=== PATIENT | female | born 1980 | race Caucasian/White ===

== ENCOUNTER 2019-05-17 08:02 | Outpatient (CLI) | payer MEDICARE, MEDICAID, SELFPAY ==
--- NOTE | 2019-05-17 08:17 | MM_ITS ---
WS: [id number] DIAGNOSTIC BILATERAL DIGITAL MAMMOGRAM WITH CAD RIGHT breast ultrasound, limited HISTORY: N63.0 UNSPEC LUMP RT BREAST COMPARISON: 11/10/2015 TECHNIQUE: Bilateral craniocaudad, mediolateral oblique, and mediolateral views are submitted. Spot c ompression RIGHT CC. Computer aided detection utilized. Breast composition: The breasts are extremely dense, which lowers the sensitivity of mammography. Tri angular marker is placed lateral to the RIGHT nipple and just above the nipple in the area of the pal pable abnormality. Mammographically no abnormality is identified. No skin thickening or distortion. N o calcifications. RIGHT breast ultrasound, limited. Ultrasound directed to the palpable abnormality in the retroareolar region. There is no underlying ab normality identified. Normal soft tissue. MM/[place] [id number] IMPRESSION: BI-RADS: 2-Benign FOLLOW UP: 1 Year Follow-up
--- NOTE | 2019-05-17 09:00 | US_ITS ---
WS: [id number] DIAGNOSTIC BILATERAL DIGITAL MAMMOGRAM WITH CAD RIGHT breast ultrasound, limited HISTORY: N63.0 UNSPEC LUMP RT BREAST COMPARISON: 11/10/2015 TECHNIQUE: Bilateral craniocaudad, mediolateral oblique, and mediolateral views are submitted. Spot c ompression RIGHT CC. Computer aided detection utilized. Breast composition: The breasts are extremely dense, which lowers the sensitivity of mammography. Tri angular marker is placed lateral to the RIGHT nipple and just above the nipple in the area of the pal pable abnormality. Mammographically no abnormality is identified. No skin thickening or distortion. N o calcifications. RIGHT breast ultrasound, limited. Ultrasound directed to the palpable abnormality in the retroareolar region. There is no underlying ab normality identified. Normal soft tissue. US/US breast RT limited* [id number] IMPRESSION: BI-RADS: 2-Benign FOLLOW UP: 1 Year Follow-up
== END 2019-05-17 08:03 | disposition home or self-care (01) ==
LOC: RADSHAW 08:07
PROVIDERS: Family Provider Nurse Practitioner Family; PCP Nurse Practitioner Family; Visit Provider Nurse Practitioner Family
DX: N63.10 Unspecified lump in the right breast, unspecified quadrant (principal)
CPT/HCPCS: 76642; 77066

== ENCOUNTER → 2019-06-08 09:17 | Outpatient (BNVA) | payer MEDICARE, MEDICAID, SELFPAY | PROVIDERS: Family Provider Nurse Practitioner Family; PCP Nurse Practitioner Family; Visit Provider Nurse Practitioner | DX: F43.12 Post-traumatic stress disorder, chronic (principal); F43.20 Adjustment disorder, unspecified | CPT/HCPCS: 99213 ==

== ENCOUNTER 2019-08-14 15:52 | Emergency (ER) | payer MEDICARE, MEDICAID, SELFPAY ==
--- NOTE | 2019-08-14 15:55 | XR_ITS ---
WS: [id number] PORTABLE CHEST HISTORY: sob COMPARISON: 03/09/2019 Cardiac loop recorder projects over the mid LEFT lung. Otherwise lungs are clear. Lungs are clear and well expanded. No pleural effusion or pneumothorax. Cardiac size: Normal. Mediastinum/Aorta: Normal mediastinum. No osseous abnormality seen. XR/XR chest 1V portable [id number] IMPRESSION: Unremarkable portable chest.
--- NOTE | 2019-08-14 15:55 | ECG_ITS ---
Measurements Intervals [place] Rate: 63 P: 41 CO: 196 QRS: 32 QRSD: 94 T: 37 QT: 423 QTc: 436 SINUS RHYTHM Compared to ECG 03/09/2019 16:26:13 Sinus bradycardia no longer present Electronically Signed On 08-14-2019 18:10:29 CDT by Katalina Montero M.D. [id number]
[2019-08-14 15:59] VITALS: BP 123/84; PULSE 81; RESP 20; TEMP 37.1; O2SAT 98; BMI 25.7
--- NOTE | 2019-08-14 16:01 | ED_ITS ---
HPI - SOB/Dyspnea General: Chief Complaint: Shortness of Breath/Dyspnea Stated Complaint: sob/sent by doctor Time Seen by Provider: 08/14/19 15:55 Source: patient Mode of arrival: ambulatory Limitations: no limitations History of Present Illness: HPI Narrative: 39-year-old female with a history of bradycardia tachyarrhythmias. Patient follows with Dr. Angel and has had issues with syncope and palpitations and dyspnea for over a year. Patient has had increasing shortness of breath over the last week and Dr. Hannon appear to rule out any pulmonary cause. She has been admitted before had no signs of any coronary artery disease. Denies any fevers. MD elicited complaint: shortness of breath Severity: mild Exacerbating factors: exertion Relieving factors: rest Associated symptoms: Deny abdominal pain, chest pain, fever(s), nausea or vomiting Review of Systems Const: Denies: fever, chills, body aches or change in appetite Eyes: Denies: blurry vision or eye discomfort ENMT: Denies: throat pain or dental pain Card: Denies: chest pain Resp: Reports: shortness of breath GI: Denies: abdominal pain, nausea, vomiting or diarrhea : Denies: painful urination Musc: Denies: neck pain or back pain Skin/Breast: Denies: rash Neuro: Denies: headache Psych: Denies: depression Maxx/Lymph: Denies: easy bruising All/Imm: Denies: hives PFSH ED PFSH: Medical History Adjustment disorder, unspecified Dyslipidemia Major depressive disorder, recurrent severe without psychotic features Old cerebrovascular accident (CVA) without late effect Post-traumatic stress disorder, chronic Post-traumatic stress disorder, chronic SOB (shortness of breath) Tachycardia Family History Other Diabetes Stroke Social History Smoking and tobacco status: current some day smoker e-cigarettes E-Cigarette Details: with nicotine Smoking risk assessment/counseling performed?: Yes Tobacco counseling given: counseling >3 minutes Physical Exam Const: COMMON NORMALS: no apparent distress, oriented x3 and healthy appearing HENMT: COMMON NORMALS: normocephalic and head/scalp atraumatic HEAD & SCALP: normocephalic and atraumatic Eye: COMMON NORMALS: PERRL and EOMs intact bilaterally PUPIL: Yes PERRL Neck/C-Spine: COMMON NORMALS: full ROM and supple Chest: COMMONS NORMALS: inspection of chest normal and palpation of chest normal Resp: COMMON NORMALS: normal respiratory effort, no retractions, no use of accessory muscles and clear to auscultation bilaterally AUSCULTATION: clear to auscultation bilaterally Cardio: COMMON NORMALS: regular rate, regular rhythm and no murmurs RATE: regular rate RHYTHM: regular rhythm GI: COMMON NORMALS: normal to inspection, nondistended, normoactive bowel sounds, soft to palpation, non-tender and no masses PALPATION: Yes soft Extremity: COMMON NORMALS: normal to inspection and full ROM Neuro: COMMON NORMALS: oriented x3, moves all extremities and no focal motor deficits Psych: COMMON NORMALS: mental status grossly normal, thought process normal and cooperative THOUGHT PROCESS: normal thought process Skin: COMMON NORMALS: no rashes or lesions noted and no wounds GENERAL SKIN EXAM: no rashes or lesions noted Course Vital Signs: Vital signs: Vital Signs Temperature 98.7 F 08/14/19 15:59 Pulse Rate 81 08/14/19 15:59 Respiratory Rate 20 H 08/14/19 15:59 Blood Pressure 123/84 08/14/19 15:59 Pulse Oximetry 98 08/14/19 15:59 MDM - SOB/Dyspnea MDM Narrative: Medical decision making narrative: Patient presents with dyspnea. Patient's pulse ox here is been normal lab work including d-dimer normal. She has no signs of pneumonia on x-ray. No signs of pulmonary bruising. She sees pulmonogiss tomorrow and is stable for discharge and is to follow-up then. Lab Data: Labs: Lab Results 08/14/19 08/14/19 08/14/19 Range/Units 16:20 16:20 16:20 WBC 7.3 (4.0-10.0) 10^3/ uL RBC 4.05 L (4.1-5.3) 10^6/u L Hgb 12.8 (11.5-15.3) g/dL Hct 37.8 (37.0-47.0) % MCV 93.3 (81-99) fL MCH 31.6 (28.0-34.0) pg MCHC 33.9 (30.0-36.0) g/dL RDW 11.8 L (12.1-15.1) % Plt Count 242 (130-400) 10^3/c mm MPV 10.0 (7.4-10.4) fL Neut % (Auto) 65.1 % Lymph % (Auto) 25.2 % [place] % (Auto) 6.1 % Eos % (Auto) 2.3 % Baso % (Auto) 1.0 % Neut # (Auto) 4.8 (1.8-7.7) 10^3/u L Lymph # (Auto) 1.9 (0.8-4.8) 10^3/u L [place] # (Auto) 0.5 (0.2-0.9) 10^3/u L Eos # (Auto) 0.2 (0.0-0.8) 10^3/u L Baso # (Auto) 0.1 (0.0-0.1) 10^3/u L Nucleated RBC % (a uto) 0 % Nucleated RBCs # 0.0 /100WBC D-Dimer (0-0.59) ug/mIFE U Sodium 140 (136-145) mmol/L Potassium 3.7 (3.5-5.1) mmol/L Chloride 104 (98-107) mmol/L Carbon Dioxide 27 (22-29) mmol/L Anion Gap 12.7 (5-19) BUN 9 (6-20) mg/dL Creatinine 0.6 (0.5-0.9) mg/dL GFR Calculation 110.2 (90-130) mL/min Glucose 97 (65-115) mg/dL Calculated Osmolal ity 286 (285-295) mOsm/k g Calcium 9.1 (8.5-10.5) mg/dL Total Bilirubin 0.3 (0.15-1.2) mg/dL AST 28 (0-32) U/L ALT 31 (0-33) U/L Alkaline Phosphata se 75 (35-105) IU/L Troponin T Baselin e 6 (0-10) ng/mL Troponin T 120 Min alfonso (0-10) ng/mL Delta Troponin T (0-10) ABS# NT-Pro-B Natriuret Pep 23 (0-125) pg/mL Total Protein 6.2 L (6.6-8.7) g/dL Albumin 4.0 (3.5-5.2) g/dL Globulin 2.2 (1.3-4.6) g/dL 08/14/19 08/14/19 Range/Units 16:20 18:35 WBC (4.0-10.0) 10^3/ uL RBC (4.1-5.3) 10^6/u L Hgb (11.5-15.3) g/dL Hct (37.0-47.0) % MCV (81-99) fL MCH (28.0-34.0) pg MCHC (30.0-36.0) g/dL RDW (12.1-15.1) % Plt Count (130-400) 10^3/c mm MPV (7.4-10.4) fL Neut % (Auto) % Lymph % (Auto) % [place] % (Auto) % Eos % (Auto) % Baso % (Auto) % Neut # (Auto) (1.8-7.7) 10^3/u L Lymph # (Auto) (0.8-4.8) 10^3/u L [place] # (Auto) (0.2-0.9) 10^3/u L Eos # (Auto) (0.0-0.8) 10^3/u L Baso # (Auto) (0.0-0.1) 10^3/u L Nucleated RBC % (a uto) % Nucleated RBCs # /100WBC D-Dimer <= 0.27 (0-0.59) ug/mIFE U Sodium (136-145) mmol/L Potassium (3.5-5.1) mmol/L Chloride (98-107) mmol/L Carbon Dioxide (22-29) mmol/L Anion Gap (5-19) BUN (6-20) mg/dL Creatinine (0.5-0.9) mg/dL GFR Calculation (90-130) mL/min Glucose (65-115) mg/dL Calculated Osmolal ity (285-295) mOsm/k g Calcium (8.5-10.5) mg/dL Total Bilirubin (0.15-1.2) mg/dL AST (0-32) U/L ALT (0-33) U/L Alkaline Phosphata se (35-105) IU/L Troponin T Baselin e (0-10) ng/mL Troponin T 120 Min alfonso 6.00 (0-10) ng/mL Delta Troponin T 0 (0-10) ABS# NT-Pro-B Natriuret Pep (0-125) pg/mL Total Protein (6.6-8.7) g/dL Albumin (3.5-5.2) g/dL Globulin (1.3-4.6) g/dL Imaging Data^: CXR: Radiologist's impression: [place] [address] XRay Report Signed Patient: Zoe Parham Unit #: [id number] : 1980 Age/Sex: 39 / F ADM Date: 08/14/19 Loc: ER Room/Bed: Attending Dr: Ordering Provider/Ordering MD: Edilma Jackson MD Date of Service: 08/14/19 Procedure(s): XR chest 1V portable [id number] Accession Number(s): [id number] Report Number: [id number] WS: [id number] PORTABLE CHEST HISTORY: sob COMPARISON: 03/09/2019 Cardiac loop recorder projects over the mid LEFT lung. Otherwise lungs are clear. Lungs are clear and well expanded. No pleural effusion or pneumothorax. Cardiac size: Normal. Mediastinum/Aorta: Normal mediastinum. No osseous abnormality seen. XR/XR chest 1V portable [id number] IMPRESSION: Unremarkable portable chest. EKG Data^: EKG 1: Attestation: I personally reviewed and interpreted this EKG as follows: EKG Interpretation Date: 08/14/19 EKG interpretation time: 16:08 Interpretation: nsr hr [address] or t wave abnormalities qrs 94 qtc 431 EKG 2: Attestation: I personally reviewed and interpreted this EKG as follows: EKG Interpretation Date: 08/14/19 EKG interpretation time: 17:53 Interpretation: nsr hr [address] elevation qrs 94 qtc 456 Discharge Plan Discharge Patient Disposition: Home, Self-Care Clinical Impression: SOB (shortness of breath) Condition: Stable Prescriptions: No Action levothyroxine 25 mcg tablet 25 mcg PO DAILY RF: 0 omeprazole 40 mg capsule,delayed release(DR/EC) 40 mg PO DAILY RF: 0 mecobalamin (vitamin B12) 5,000 mcg tablet,disintegrating 5,000 mcg PO DAILY RF: 0 All Day Allergy (cetirizine) 10 mg capsule 10 mg PO DAILY RF: 0 atorvastatin [Lipitor] 80 mg tablet 80 mg PO DAILY RF: 0 aspirin 325 mg tablet 325 mg PO DAILY RF: 0 biotin 1,000 mcg tablet,chewable 1,000 mcg PO DAILY RF: 0 ferrous sulfate 325 mg (65 mg iron) tablet 325 mg PO DAILY RF: 0 lysine [L-Lysine] 500 mg tablet 500 mg PO DAILY RF: 0 multivitamin Tablet 1 tab PO DAILY RF: 0 cholecalciferol (vitamin D3) 5,000 unit tablet,disintegrating 5,000 unit PO DAILY RF: 0 sertraline [Zoloft] 50 mg tablet 50 mg PO DAILY Qty: 30 RF: 2 Tylenol 325 mg Tablet 325 mg PO QID PRN (Reason: Pain) RF: 0 ProAir HFA 90 mcg/actuation HFA aerosol inhaler 1 - 2 puff INHALATION Q4H PRN (Reason: Shortness Of Breath) RF: 0 Discharge Orders: Discharge Order (Routine); Ordered 08/14/19 Ordered By: Edilma Jackson Referrals: Elda Conner NP [Primary Care Provider] - Discharge Diet: Advance as tolerated Discharge Activity: Resume usual activity Patient Instructions: Dyspnea (ED) Coding Level of Care Code ED [employer] Worker for Fede Fwd Exam Comprehensive
[2019-08-14 16:37] LABS: Basophils # 0.1 10^3/uL (0.0-0.1); Eosinophils # 0.2 10^3/uL (0.0-0.8); Eosinophils % 2.3 %; Hematocrit 37.8 % (37.0-47.0); Hemoglobin 12.8 g/dL (11.5-15.3); Lymphocytes # 1.9 10^3/uL (0.8-4.8); Lymphocytes % 25.2 %; Mean Corpuscular HGB Conc 33.9 g/dL (30.0-36.0); Mean Corpuscular Hemoglobin 31.6 pg (28.0-34.0); Mean Corpuscular Volume 93.3 fL (81-99); Monocytes # 0.5 10^3/uL (0.2-0.9); Monocytes % 6.1 %; Neutrophils # 4.8 10^3/uL (1.8-7.7); Neutrophils % 65.1 %; Nucleated Red Blood Cells % 0 %; Platelet Count 242 10^3/cmm (130-400); Red Blood Count 4.05 10^6/uL (4.1-5.3); Red Cell Distribution Width 11.8 % (12.1-15.1); White Blood Count 7.3 10^3/uL (4.0-10.0)
[2019-08-14 16:54] LABS: Troponin(5th) Baseline 6 ng/mL (0-10)
[2019-08-14 17:02] LABS: Alanine Aminotransferase 31 U/L (0-33); Alkaline Phosphatase 75 IU/L (35-105); Anion Gap 12.7 (5-19); Aspartate Amino Transferase 28 U/L (0-32); Blood Urea Nitrogen 9 mg/dL (6-20); Calcium 9.1 mg/dL (8.5-10.5); Carbon Dioxide 27 mmol/L (22-29); Chloride 104 mmol/L (98-107); Globulin 2.2 g/dL (1.3-4.6); Glomerular Filtration Rate 110.2 mL/min (90-130); Glucose 97 mg/dL (65-115); NT Pro B Type Natriuretic Pept 23 pg/mL (0-125); Osmolality Calculated 286 mOsm/kg (285-295); Potassium 3.7 mmol/L (3.5-5.1); Sodium 140 mmol/L (136-145); Total Bilirubin 0.3 mg/dL (0.15-1.2); Total Protein 6.2 g/dL (6.6-8.7)
[2019-08-14 19:00] LABS: Troponin 5 2HR Delta 0 ABS# (0-10)
[2019-08-14 20:23] LABS: D Dimer <= 0.27 ug/mIFEU (0-0.59)
[2019-08-14 21:13] VITALS: BP 149/65; PULSE 78; RESP 16; O2SAT 98
--- NOTE | 2019-08-14 21:55 | ECG_ITS ---
Measurements Intervals [place] Rate: 72 P: 47 AK: 194 QRS: 57 QRSD: 94 T: 37 QT: 431 QTc: 475 SINUS RHYTHM Compared to ECG 03/09/2019 16:26:13 Sinus bradycardia no longer present Electronically Signed On 08-14-2019 18:14:26 CDT by Katalina Montero M.D. [email or web address]
== END 2019-08-14 21:14 | disposition home or self-care (01) ==
PROVIDERS: Emergency Provider Emergency Medicine; Family Provider Nurse Practitioner Family; PCP Nurse Practitioner Family
DX: R06.02 Shortness of breath (principal); Z79.82 Long term (current) use of aspirin; E78.5 Hyperlipidemia, unspecified; Z86.73 Personal history of transient ischemic attack (TIA), and cerebral infarction without residual deficits; F17.290 Nicotine dependence, other tobacco product, uncomplicated
CPT/HCPCS: 12345; 36415; 71045; 80053; 83880; 84484; 85025; 85378; 93005; 99281; 99283

== ENCOUNTER 2019-08-24 09:27 | Outpatient (CLI) | payer MEDICARE, MEDICAID, SELFPAY ==
--- NOTE | 2019-08-24 09:45 | CT_ITS ---
WS: [id number] CT CHEST TECHNIQUE: Noncontrast CT of the chest with coronal and sagittal reformatted images. CLINICAL INFORMATION: Shortness of breath COMPARISON: CT chest August 03, 2018 DLP: 765.[address] scans at [facility] use at least one of these dose optimization techniques: automat ed exposure control; mA and/or kV adjustment per patient size (includes targeted exams where dose is matched to clinical indication); or iterative reconstruction. FINDINGS: No acute pulmonary infiltrates.Lungs are well aerated. No consolidation or pleural fluid. No focal pn eumonia. No suspicious pulmonary parenchymal opacities. Thyroid gland is normal. No mediastinal or hilar lymphadenopathy. No axillary lymphadenopathy. Adrena l glands are normal. Cholecystectomy clips. Postoperative changes with surgical clips at the GE junct ion. Small esophageal hiatal hernia. Mild thoracic kyphosis. Mild thoracic curve. No acute appearing compression fractures. CT/CT chest wo con [id number] IMPRESSION: 1. No acute pulmonary infiltrates. No focal pneumonia. No pleural fluid. 2. No suspicious pulmonary parenchymal opacities. 3. No mediastinal or hilar lymphadenopathy. 4. Prior postoperative changes GE junction with surgical clips and small esoph ageal hiatal hernia. 5. Cholecystectomy clips.
== END 2019-08-24 09:28 | disposition home or self-care (01) ==
LOC: RADWPI 09:30
PROVIDERS: Family Provider Nurse Practitioner Family; PCP Nurse Practitioner Family; Visit Provider Internal Medicine Critical Care Medicine
DX: R06.02 Shortness of breath (principal); K44.9 Diaphragmatic hernia without obstruction or gangrene
CPT/HCPCS: 71250

== ENCOUNTER → 2019-08-28 08:35 | Outpatient (BNVA) | payer MEDICARE, MEDICAID, SELFPAY | PROVIDERS: Family Provider Nurse Practitioner Family; PCP Nurse Practitioner Family; Visit Provider Nurse Practitioner | DX: F43.20 Adjustment disorder, unspecified (principal); F43.12 Post-traumatic stress disorder, chronic | CPT/HCPCS: 99213 ==

== ENCOUNTER 2019-10-02 10:19 | Outpatient (CLI) | payer MEDICARE, MEDICAID, SELFPAY ==
[2019-10-02 12:47] VITALS: O2SAT 95; O2SAT 99
--- NOTE | 2019-10-02 12:55 | PFTS_ITS ---
Date of Study:10/02/19 Date of Dictation: MECHANICS: Forced vital capacity (FVC) is normal. Forced expiratory volume in one second (FEV1) is normal. FEV1/FVC is normal. FLOW VOLUME LOOP: There is no peak expiratory flow on the flow volume loop. LUNG VOLUMES: Total lung capacity (TLC) is normal. Residual volume (RV) is normal. DIFFUSING CAPACITY FOR CARBON MONOXIDE: Normal. INTERPRETATION: The pulmonary function tests are normal. Lung volumes are normal. Gas exchange (DLCO) is normal. MTDD
== END 2019-10-02 10:20 | disposition home or self-care (01) ==
LOC: RT 10:24
PROVIDERS: Family Provider Nurse Practitioner Family; PCP Nurse Practitioner Family; Visit Provider Internal Medicine Critical Care Medicine
DX: R06.02 Shortness of breath (principal)
CPT/HCPCS: 94010; 94726; 94729; 94762

== ENCOUNTER 2019-10-02 11:00 | Outpatient (CLI) | payer MEDICARE, MEDICAID, SELFPAY | END 2019-10-02 11:01 | disposition home or self-care (01) | LOC: SLEEP 10-04 09:26 | PROVIDERS: Family Provider Nurse Practitioner Family; PCP Nurse Practitioner Family; Visit Provider Internal Medicine Critical Care Medicine | DX: R06.02 Shortness of breath (principal) | CPT/HCPCS: 94762 ==

== ENCOUNTER → 2020-02-28 15:10 | Outpatient (BNVA) | payer MEDICARE, MEDICAID, SELFPAY | PROVIDERS: Family Provider Nurse Practitioner Family; PCP Nurse Practitioner Family; Visit Provider Nurse Practitioner Family | DX: Z20.828 Contact with and (suspected) exposure to other viral communicable diseases (principal); J06.9 Acute upper respiratory infection, unspecified | CPT/HCPCS: 87635 ==

== ENCOUNTER 2020-03-12 11:39 | Emergency (ER) | payer MEDICARE, MEDICAID, SELFPAY ==
[2020-03-12 12:03] VITALS: BP 113/77; PULSE 73; RESP 18; TEMP 36.9; O2SAT 97; BMI 28.3
--- NOTE | 2020-03-12 13:41 | XR_ITS ---
WS: [id number] XR KUB [id number] REASON FOR EXAM: stomach pain FINDINGS: Multiple surgical clips and mickey in the epigastric and gastroesophageal region. Previous cholecyst ectomy. Bowel gas pattern is unremarkable. No free air or retroperitoneal air. No urinary tract calculi are identified. No mass is recognized. XR/XR KUB [id number] IMPRESSION: No acute abnormality identified.
--- NOTE | 2020-03-12 14:06 | PC.NURSE ---
Pt in WR with family at side. No needs
--- NOTE | 2020-03-12 14:21 | PC.NURSE ---
Blood drawn, labeled and sent to lab. Pt given urine cup for UA.
[2020-03-12 14:32] LABS: Basophils # 0.1 10^3/uL (0.0-0.1); Basophils % 0.9 %; Eosinophils # 0.1 10^3/uL (0.0-0.8); Eosinophils % 0.9 %; Hematocrit 41.3 % (37.0-47.0); Hemoglobin 13.9 g/dL (11.5-15.3); Lymphocytes # 1.6 10^3/uL (0.8-4.8); Lymphocytes % 18.4 %; Mean Corpuscular HGB Conc 33.7 g/dL (30.0-36.0); Mean Corpuscular Hemoglobin 31.4 pg (28.0-34.0); Mean Corpuscular Volume 93.4 fL (81-99); Mean Platelet Volume 9.6 fL (7.4-10.4); Monocytes # 0.5 10^3/uL (0.2-0.9); Monocytes % 5.5 %; Neutrophils # 6.61 10^3/uL (1.8-7.7); Neutrophils % 74.1 %; Nucleated Red Blood Cells % 0 %; Platelet Count 286 10^3/cmm (130-400); Red Blood Count 4.42 10^6/uL (4.1-5.3); Red Cell Distribution Width 12.6 % (12.1-15.1); White Blood Count 8.9 10^3/uL (4.0-10.0)
[2020-03-12 14:52] LABS: Alanine Aminotransferase 47 U/L (0-33); Albumin Level 3.9 g/dL (3.5-5.2); Alkaline Phosphatase 81 IU/L (35-105); Aspartate Amino Transferase 38 U/L (0-32); Blood Urea Nitrogen 7 mg/dL (6-20); Calcium 8.8 mg/dL (8.5-10.5); Carbon Dioxide 27 mmol/L (22-29); Chloride 107 mmol/L (98-107); Glucose 100 mg/dL (65-115); Lipase 48 U/L (13-60); Osmolality Calculated 290 mOsm/kg (285-295); Sodium 141 mmol/L (136-145); Total Bilirubin 0.4 mg/dL (0.15-1.2); Total Protein 5.9 g/dL (6.6-8.7)
[2020-03-12 15:02] LABS: Add Urine Microscopic? NO
[2020-03-12 15:11] LABS: Bilirubin Urine Neg (Negative); Blood Urine Neg (Negative); Glucose Urine UA Norm (Normal); Ketones Urine Negative (Negative); Leukocyte Esterase Urine Negative (Negative); Nitrate Urine Negative (Negative); Protein Urine Neg (Negative); Urine Appearance Cloudy (CLEAR); Urine Color Yellow (Yellow); Urobilinogen Urine Norm (Negative); pH Urine 5 (5-7)
--- NOTE | 2020-03-12 15:17 | ED_ITS ---
HPI - Abdominal Pain General: Chief Complaint: Abdominal Pain Stated Complaint: PHY REF/POSS GI BLOCKAGE Time Seen by Provider: 03/12/20 13:48 Source: patient Mode of arrival: ambulatory Limitations: no limitations History of Present Illness: HPI narrative: 39-year-old female patient presents to the emergency department with complaints of stomach pain. She reports 3- weeks ago, history of stomach flu symptoms. She reports lasted 4 to 5 days. Tested negative for Covid. She reports onset of pain with eating, left upper abdomen, she reports history of gastric bypass in [place] years ago with telescoping of her colon. She reports telescoping fixed itself and has not experienced further symptoms. She reports past several day history of nausea with eating, dull ache on an empty stomach. She reports pain is in the left upper abdomen. She states is experienced loose bowel movements, smaller than normal. She denies vomiting. She denies fever chills. States able to tolerate p.o. fluids without difficulty. She reports pain occurs only with eating. MD elicited complaint: abdominal pain Pertinent past history: gastritis and other (Gastric bypass and telescoping of the colon) Onset (ago): day(s) (4-5) Pain Consistency: intermittent Location: LUQ Severity: moderate Quality: cramping, aching and dull Migration to: no migration Exacerbating factors: eating Associated Symptoms: Reports change in bowel habits, change in stool character (Smaller and loose) and nausea; Denies chills, constipation, GI cramping, diarrhea, dyspepsia, dysuria, fever(s), heartburn, hematochezia, hematemesis, fecal incontinence and vomiting Review of Systems General: Reports: 10 or more systems reviewed and unremarkable except in HPI and below Const: Reports: fatigue; Denies: fever(s), chills, malaise or diaphoresis Eyes: Denies: blurry vision or eye redness ENMT: Denies: throat pain, dental pain or disequilibrium Card: Denies: chest pain, palpitations or irregular heart rhythm Resp: Denies: dyspnea, productive cough, non-productive cough or wheezing GI: Reports: abdominal pain (LUQ with eating), nausea, change in bowel habits and change in stool character (Smaller and loose); Denies: vomiting, hematemesis, dysphagia, heartburn, diarrhea, constipation, GI cramping, fecal incontinence or hematochezia : Denies: dysuria Musc: Denies: back pain Skin/Breast: Denies: rash or pruritus Neuro: Denies: headache(s), weakness in extremities or behavioral changes Maxx/Lymph: Denies: easy bruising PFSH ED PFSH: Medical History (Updated 03/12/20 @ 15:28 by CHARLA Altamirano) Adjustment disorder, unspecified Dyslipidemia H/O coronary angiogram Major depressive disorder, recurrent severe without psychotic features Old cerebrovascular accident (CVA) without late effect Post-traumatic stress disorder, chronic Post-traumatic stress disorder, chronic S/P transesophageal echocardiogram (LUCIA) SOB (shortness of breath) Tachycardia Surgical History H/O foot surgery H/O gastric bypass History of cholecystectomy History of hysterectomy History of loop recorder Hx of tonsillectomy S/P spinal surgery Family History Other Diabetes Stroke Social History Smoking and tobacco status: current some day smoker e-cigarettes E-Cigarette Details: with nicotine E-cig/vape details: 8 Years Smoking risk assessment/counseling performed?: Yes Tobacco counseling given: counseling >3 minutes Alcohol intake: current Alcohol intake frequency: holidays/special occasions only Lives independently: Yes Household members: significant other Marital status: Current occupational status: disabled History of recent travel: No Current gender identity: Female Physical Exam Const: COMMON NORMALS: no acute distress, patient oriented x3, healthy appearing and alert GENERAL APPEARANCE: cooperative, comfortable and well hydrated HENMT: COMMON NORMALS: normocephalic, Normal external nose present and moist oral mucous membranes HEAD & SCALP: normocephalic NOSE: Normal external nose present Eye: COMMON NORMALS: Equal, round and reactive pupils present and EOMs intact bilaterally GENERAL EYE: appearance normal, both eyes and all related structures PUPIL: Yes Equal, round and reactive pupils present Neck/C-Spine: COMMON NORMALS: full ROM and no lymphadenopathy GENERAL: Yes normal visual inspection and Yes trachea midline CERVICAL SPINE: Yes cervical ROM normal Lymph: LYMPHATIC: no lymphadenopathy noted Chest: COMMONS NORMALS: normal inspection of the chest and normal palpation of entire chest wall Resp: COMMON NORMALS: normal respiratory effort, No use of accessory muscles and clear to auscultation bilaterally EFFORT & INSPECTION: Yes able to speak in complete sentences and No paradoxical thoraco-abdominal movements AUSCULTATION: clear to auscultation bilaterally Cardio: COMMON NORMALS: regular rhythm, S1 normal heart sound present, S2 normal heart sound present and Peripheral pulses 2+ throughout RHYTHM: regular rhythm HEART SOUNDS: S1 normal heart sound present and S2 normal heart sound present PERIPHERAL PULSES: Peripheral pulses 2+ throughout GI: COMMON NORMALS: Normal to inspection, nondistended, normoactive bowel sounds present and Soft to palpation INSPECTION: Yes normal to inspection, No Abdominal wall edema, No Anasarca and No scar AUSCULTATION: Yes normoactive bowel sounds and No High-pitched bowel sounds present PALPATION: Yes Soft to palpation, Yes Tenderness to palpation present (GI) Details: LLQ and LUQ, No Hepatosplenomegaly present, No Splenomegaly present, No Hernia present and No Pulsatile mass present PERCUSSION: normal to percussion : COMMON NORMALS: Yes no CVA tenderness BLADDER/KIDNEY EXAM: Yes no CVA tenderness EXTERNAL FEMALE EXAM: No Hernia present Back/Pelvis: COMMON NORMALS: no CVA tenderness and thoracic and lumbar spine normal to inspection Extremity: COMMON NORMALS: normal to inspection and capillary refill normal Neuro: COMMON NORMALS: patient oriented x3 and no focal motor deficits SENSORIUM/ORIENTATION: Yes alert Psych: COMMON NORMALS: mental status grossly normal, Normal thought process present and cooperative ACTIVITY/MOTOR BEHAVIOR: Yes appropriate eye contact THOUGHT PROCESS: Normal thought process present Skin: COMMON NORMALS: no rashes or lesions noted and turgor normal GENERAL SKIN EXAM: no rashes or lesions noted and turgor normal Course ED course: 39-year-old female patient presents to the emergency department with onset of pain with eating. She reports able to tolerate oral fluids without difficulty. Experienced similar symptoms 3 weeks ago with resolution. History of gastric bypass surgery with telescoping of the colon years ago. She reports was sent to the hospital at the recommendation of her primary care provider to assure she did not have a bowel obstruction. Labs were normal, liver enzymes remain at her baseline. Urinalysis negative for hematuria. She declined something for nausea and pain here in the ED as she states symptoms had improved. CT scan of the abdomen and pelvis was offered but she declined, reports since symptoms are better, she request something for nausea, promethazine prescription provided with recommendation for her to follow-up with her primary care provider in about a week. She is advised to return to the emergency department if she developed worsening symptoms such as vomiting p.o. fluids, verbalized understanding and agrees. Advised clear liquid diet and advance as tolerated with avoidance of greasy fried fatty foods. Vital Signs: Vital signs: Vital Signs Temperature 98.4 F 03/12/20 12:03 Pulse Rate 73 03/12/20 12:03 Respiratory Rate 18 03/12/20 12:03 Blood Pressure 113/77 03/12/20 12:03 Pulse Oximetry 97 03/12/20 12:03 MDM - Abdominal Pain Lab Data: Labs: Lab Results 03/12/20 03/12/20 03/12/20 Range/Units 14:16 14:16 14:38 WBC 8.9 (4.0-10.0) 10^3/ uL RBC 4.42 (4.1-5.3) 10^6/u L Hgb 13.9 (11.5-15.3) g/dL Hct 41.3 (37.0-47.0) % MCV 93.4 (81-99) fL MCH 31.4 (28.0-34.0) pg MCHC 33.7 (30.0-36.0) g/dL RDW 12.6 (12.1-15.1) % Plt Count 286 (130-400) 10^3/c mm MPV 9.6 (7.4-10.4) fL Neut % (Auto) 74.1 % Lymph % (Auto) 18.4 % Putnam % (Auto) 5.5 % Eos % (Auto) 0.9 % Baso % (Auto) 0.9 % Neut # (Auto) 6.61 (1.8-7.7) 10^3/u L Lymph # (Auto) 1.6 (0.8-4.8) 10^3/u L Putnam # (Auto) 0.5 (0.2-0.9) 10^3/u L Eos # (Auto) 0.1 (0.0-0.8) 10^3/u L Baso # (Auto) 0.1 (0.0-0.1) 10^3/u L Nucleated RBC % (a uto) 0 % Nucleated RBCs # 0.0 /100WBC Sodium 141 (136-145) mmol/L Potassium 4.0 (3.5-5.1) mmol/L Chloride 107 (98-107) mmol/L Carbon Dioxide 27 (22-29) mmol/L Anion Gap 11.0 (5-19) BUN 7 (6-20) mg/dL Creatinine 0.5 (0.5-0.9) mg/dL GFR Calculation 136.0 H (90-130) mL/min Glucose 100 (65-115) mg/dL Calculated Osmolal ity 290 (285-295) mOsm/k g Calcium 8.8 (8.5-10.5) mg/dL Total Bilirubin 0.4 (0.15-1.2) mg/dL AST 38 H (0-32) U/L ALT 47 H (0-33) U/L Alkaline Phosphata se 81 (35-105) IU/L Total Protein 5.9 L (6.6-8.7) g/dL Albumin 3.9 (3.5-5.2) g/dL Globulin 2.0 (1.3-4.6) g/dL Lipase 48 (13-60) U/L Urine Color (Yellow) Urine Appearance (CLEAR) Urine pH (5-7) Ur Specific Gravit y (1.005-1.030) Urine Protein (Negative) Urine Glucose (UA) (Normal) Urine Ketones (Negative) Urine Blood (Negative) Urine Nitrate (Negative) Urine Bilirubin (Negative) Urine Urobilinogen (Negative) mg/dL Ur Leukocyte Chelo ase (Negative) Urine HCG, Qual Negative (Negative) 03/12/20 Range/Units 14:38 WBC (4.0-10.0) 10^3/ uL RBC (4.1-5.3) 10^6/u L Hgb (11.5-15.3) g/dL Hct (37.0-47.0) % MCV (81-99) fL MCH (28.0-34.0) pg MCHC (30.0-36.0) g/dL RDW (12.1-15.1) % Plt Count (130-400) 10^3/c mm MPV (7.4-10.4) fL Neut % (Auto) % Lymph % (Auto) % Putnam % (Auto) % Eos % (Auto) % Baso % (Auto) % Neut # (Auto) (1.8-7.7) 10^3/u L Lymph # (Auto) (0.8-4.8) 10^3/u L Putnam # (Auto) (0.2-0.9) 10^3/u L Eos # (Auto) (0.0-0.8) 10^3/u L Baso # (Auto) (0.0-0.1) 10^3/u L Nucleated RBC % (a uto) % Nucleated RBCs # /100WBC Sodium (136-145) mmol/L Potassium (3.5-5.1) mmol/L Chloride (98-107) mmol/L Carbon Dioxide (22-29) mmol/L Anion Gap (5-19) BUN (6-20) mg/dL Creatinine (0.5-0.9) mg/dL GFR Calculation (90-130) mL/min Glucose (65-115) mg/dL Calculated Osmolal ity (285-295) mOsm/k g Calcium (8.5-10.5) mg/dL Total Bilirubin (0.15-1.2) mg/dL AST (0-32) U/L ALT (0-33) U/L Alkaline Phosphata se (35-105) IU/L Total Protein (6.6-8.7) g/dL Albumin (3.5-5.2) g/dL Globulin (1.3-4.6) g/dL Lipase (13-60) U/L Urine Color Yellow (Yellow) Urine Appearance Cloudy (CLEAR) Urine pH 5 (5-7) Ur Specific Gravit y 1.010 (1.005-1.030) Urine Protein Neg (Negative) Urine Glucose (UA) Norm (Normal) Urine Ketones Negative (Negative) Urine Blood Neg (Negative) Urine Nitrate Negative (Negative) Urine Bilirubin Neg (Negative) Urine Urobilinogen Norm (Negative) mg/dL Ur Leukocyte Chelo ase Negative (Negative) Urine HCG, Qual (Negative) Imaging Data ^: KUB: Radiologist's impression: [employer] [address] XRay Report Signed Patient: Zoe Parham Unit #: [id number] : 1980 Age/Sex: 39 / F ADM Date: 03/12/20 Loc: ER Room/Bed: Attending Dr: Ordering Provider/Ordering MD: Allison Eldridge Date of Service: 03/12/20 Procedure(s): XR KUB [id number] Accession Number(s): [id number] Report Number: [id number] WS: [id number] XR KUB [id number] REASON FOR EXAM: stomach pain FINDINGS: Multiple surgical clips and mickey in the epigastric and gastroesophageal region. Previous cholecystectomy. Bowel gas pattern is unremarkable. No free air or retroperitoneal air. No urinary tract calculi are identified. No mass is recognized. XR/XR KUB [id number] IMPRESSION: No acute abnormality identified. Dictated By: Leonardo Madsen Jr, MD Signed By: Leonardo Madsen Jr, MD Signed Date/Time: 03/12/20 141 DD/ 1409 Discharge Plan Discharge Patient Disposition: Home Clinical Impression: Nausea Gastritis Qualifiers: Gastritis type: unspecified gastritis Chronicity: acute Gastritis bleeding: without bleeding Qualified Code(s): K29.00 - Acute gastritis without bleeding Condition: Stable Prescriptions: New promethazine 25 mg tablet 25 mg PO Q6H PRN (Reason: nausea and vomiting) Qty: 10 RF: 0 No Action levothyroxine 25 mcg tablet 25 mcg PO DAILY RF: 0 omeprazole 40 mg capsule,delayed release(DR/EC) 40 mg PO DAILY RF: 0 mecobalamin (vitamin B12) 5,000 mcg tablet,disintegrating 5,000 mcg PO DAILY RF: 0 All Day Allergy (cetirizine) 10 mg capsule 10 mg PO DAILY RF: 0 atorvastatin [Lipitor] 80 mg tablet 80 mg PO DAILY RF: 0 aspirin 325 mg tablet 325 mg PO DAILY RF: 0 biotin 1,000 mcg tablet,chewable 1,000 mcg PO DAILY RF: 0 ferrous sulfate 325 mg (65 mg iron) tablet 325 mg PO DAILY RF: 0 lysine [L-Lysine] 500 mg tablet 500 mg PO DAILY RF: 0 multivitamin Tablet 1 tab PO DAILY RF: 0 cholecalciferol (vitamin D3) 5,000 unit tablet,disintegrating 5,000 unit PO DAILY RF: 0 sertraline [Zoloft] 50 mg tablet 50 mg PO DAILY Qty: 30 RF: 2 Tylenol 325 mg Tablet 325 mg PO QID PRN (Reason: Pain) RF: 0 ProAir HFA 90 mcg/actuation HFA aerosol inhaler 1 - 2 puff INHALATION Q4H PRN (Reason: Shortness Of Breath) RF: 0 Discharge Orders: Discharge Order (Routine); Ordered 03/12/20 Ordered By: Allison Eldridge Referrals: Elda Conner VIDEO ARCADE MANAGER [Primary Care Provider] - Discharge Diet: Advance as tolerated and Clear Liquid Discharge Activity: Resume usual activity Patient Instructions: Gastritis (ED), Abdominal Pain (ED) Activity Restrictions/Additional Instructions: Clear liquid diet then advance as tolerated, avoid greasy fried fatty foods as this can cause stomach upset Eat small frequent meals several times daily Return to the emergency department if you develop vomiting, worsening abdominal pain, inability to tolerate oral fluids Take Phenergan as needed for nausea. Follow-up with your primary care provider next week Coding Level of Care Code ED Laser Machine Operator for Chg Fwd Exam Comprehensive
[2020-03-12 16:32] VITALS: RESP 18
== END 2020-03-12 16:32 | disposition home or self-care (01) ==
PROVIDERS: Emergency Provider Nurse Practitioner Family; PCP Nurse Practitioner Family
DX: K29.00 Acute gastritis without bleeding (principal); Z79.82 Long term (current) use of aspirin; E78.5 Hyperlipidemia, unspecified; F17.290 Nicotine dependence, other tobacco product, uncomplicated
CPT/HCPCS: 12345; 74018; 80053; 81003; 81025; 83690; 85025; 99281; 99283

== ENCOUNTER → 2020-04-21 10:01 | Outpatient (BNVA) | payer MEDICARE, MEDICAID, SELFPAY | PROVIDERS: PCP Nurse Practitioner Family; Visit Provider Nurse Practitioner Family | DX: E78.5 Hyperlipidemia, unspecified (principal); R00.0 Tachycardia, unspecified; F43.20 Adjustment disorder, unspecified; F43.12 Post-traumatic stress disorder, chronic; Z98.84 Bariatric surgery status; Z86.73 Personal history of transient ischemic attack (TIA), and cerebral infarction without residual deficits | CPT/HCPCS: 80061; 82306; 82607 ==

== ENCOUNTER 2020-07-02 09:42 | Outpatient (CLI) | payer MEDICARE, MEDICAID, SELFPAY ==
--- NOTE | 2020-07-02 10:00 | MM_ITS ---
WS: [id number] Bilateral screening digital mammogram, 07/02/2020 Clinical Data: Z12.39 - Encounter for other screening for malignant neoplasm of breast Comparison: 05/17/2019, 11/10/2015 Findings: The breast parenchymal pattern shows extreme density No spiculated masses or clustered calcifications are seen. There are no secondary signs of carcinoma. There is an electronic recording device in the left axilla. MM/[id number] Impression: 1. Negative bilateral mammogram unchanged. 2. Recommend annual screening mammograms. BIRADS: 1-Negative FOLLOW UP: 1 Year Follow-up The CAD cashier or checker stock clerk was used.
== END 2020-07-02 09:43 | disposition home or self-care (01) ==
LOC: RADSHAW 09:49
PROVIDERS: PCP Nurse Practitioner Family; Visit Provider Nurse Practitioner Family
DX: Z12.31 Encounter for screening mammogram for malignant neoplasm of breast (principal)
CPT/HCPCS: 77067

== ENCOUNTER → 2020-09-29 16:50 | Outpatient (BNVA) | payer MEDICARE, MEDICAID, SELFPAY | PROVIDERS: PCP Nurse Practitioner Family; Visit Provider Family Medicine | DX: D50.8 Other iron deficiency anemias (principal); E03.9 Hypothyroidism, unspecified; E78.5 Hyperlipidemia, unspecified; B00.1 Herpesviral vesicular dermatitis; F43.12 Post-traumatic stress disorder, chronic | CPT/HCPCS: 80053; 80061; 82607; 83540; 84443; 85025 ==

== ENCOUNTER 2020-10-12 18:00 | Emergency (ER) | payer MEDICARE, MEDICAID, SELFPAY ==
[2020-10-12 18:17] VITALS: BP 144/86; PULSE 83; RESP 18; TEMP 37; O2SAT 93; BMI 28.3
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
[2020-10-12] MEDS: neomycin-poly-bacitracin oint 28 gm 1 APPLIC TOPICAL (19:24)
== END 2020-10-12 19:27 | disposition home or self-care (01) ==
PROVIDERS: Emergency Provider Physician Assistant; PCP Nurse Practitioner Family
DX: T24.211A Burn of second degree of right thigh, initial encounter (principal); X19.XXXA Contact with other heat and hot substances, initial encounter; E78.5 Hyperlipidemia, unspecified; F17.290 Nicotine dependence, other tobacco product, uncomplicated
CPT/HCPCS: 99282

== ENCOUNTER → 2021-01-28 17:29 | Outpatient (BNVA) | payer MEDICARE, MEDICAID, SELFPAY | PROVIDERS: PCP Nurse Practitioner Family; Visit Provider Nurse Practitioner Family | DX: R51.9 Headache, unspecified (principal); R53.83 Other fatigue; Z11.52 Encounter for screening for COVID-19; D50.8 Other iron deficiency anemias; Z98.84 Bariatric surgery status; J32.0 Chronic maxillary sinusitis; R06.02 Shortness of breath; R11.0 Nausea; J06.9 Acute upper respiratory infection, unspecified | CPT/HCPCS: 80053; 83550; 85025; 87635 ==

== ENCOUNTER 2021-05-10 13:49 | Emergency (ER) | payer MEDICARE, MEDICAID, SELFPAY ==
[2021-05-10 15:29] VITALS: BP 129/84; PULSE 77; RESP 18; TEMP 36.5; O2SAT 99
--- NOTE | 2021-05-10 16:07 | ED_ITS ---
HPI - Back Pain/Injury General: Chief Complaint: Back Pain/Injury Stated Complaint: back pain Time Seen by Provider: 05/10/21 15:41 History of Present Illness: HPI Narrative: Patient was getting to the car yesterday and she felt a pop in her back. And she said there is pressure down both sides of her hip. She says that she is actually improving today but was wanting get x-rays because he is urgent cares x-ray machine was down yesterday and they could not perform them. Patient does not appear in acute distress. Is able to move legs. Denies any saddle anesthesia. He is scheduled for basal cell carcinoma removal on Tuesday with Dr. Farley. elicited complaint: back injury Pertinent past history: prior back pain Onset (ago): day(s) Timing: improved Severity: mild Similar Symptoms Previously: Yes Quality: aching and other (Pressure) Location: lumbar spine Radiation: buttocks Exacerbating factors: movement Relieving factors: immobilization Context: turning/twisting and bending Associated symptoms: Reports no associated symptoms; Deny chills or fever(s) Review of Systems Const: Denies: fever(s) or chills Resp: Denies: dyspnea Musc: Reports: back pain Psych: Denies: anxiety or depression PFSH ED PFSH: Medical History Adjustment disorder, unspecified Dyslipidemia H/O coronary angiogram Major depressive disorder, recurrent severe without psychotic features Old cerebrovascular accident (CVA) without late effect Post-traumatic stress disorder, chronic Post-traumatic stress disorder, chronic S/P transesophageal echocardiogram (LUCIA) SOB (shortness of breath) Tachycardia Surgical History H/O foot surgery H/O gastric bypass History of cholecystectomy History of hysterectomy History of loop recorder Hx of tonsillectomy S/P spinal surgery Family History Other Diabetes Stroke Social History Second hand smoke exposure: Yes Smoking risk assessment/counseling performed?: Yes Tobacco counseling given: counseling >3 minutes Alcohol intake: current Alcohol intake frequency: holidays/special occasions only Counseling given: No Counseling given: No Lives independently: Yes Household members: significant other Marital status: Current occupational status: disabled History of recent travel: No Current gender identity: Female Physical Exam Const: COMMON NORMALS: no acute distress and patient oriented x3 Resp: COMMON NORMALS: normal respiratory effort Back/Pelvis: LUMBAR SPINE/LOWER BACK: No straight leg raise negative bilaterally, Yes straight leg raise positive right (Slight pain with lifting the leg) and Yes straight leg raise positive left (Slight pain of the leg while sitting wheelchair) OTHER: Patient able to lift legs without difficulty. She says actually feels better today on the right leg than it did yesterday. Patient apparently sent in wheelchair. Neuro: COMMON NORMALS: patient oriented x3 and moves all extremities Course 2 Vital Signs: Vital signs: Vital Signs Temperature 97.7 F 05/10/21 15:29 Pulse Rate 77 05/10/21 15:29 Respiratory Rate 18 05/10/21 15:29 Blood Pressure 129/84 05/10/21 15:29 Pulse Oximetry 99 05/10/21 15:29 Discharge Plan Discharge Patient Disposition: Home Clinical Impression: Strain of lumbar region Qualifiers: Encounter type: initial encounter Qualified Code(s): S39.012A - Strain of muscle, fascia and tendon of lower back, initial encounter Condition: Stable Prescriptions: New prednisone 20 mg tablet 20 mg PO DAILY Qty: 7 RF: 0 Celebrex 100 mg capsule 100 mg PO BID Qty: 20 RF: 0 No Action amitriptyline 25 mg tablet 75 mg PO DAILY RF: 0 Galzin 25 mg (zinc) capsule 25 mg PO DAILY RF: 0 valacyclovir [Valtrex] 1 gram tablet 1,000 mg PO TID 7 Days Qty: 21 RF: 0 mecobalamin (vitamin B12) 5,000 mcg tablet,disintegrating 5,000 mcg PO DAILY RF: 0 All Day Allergy (cetirizine) 10 mg capsule 10 mg PO DAILY RF: 0 aspirin 325 mg tablet 325 mg PO DAILY RF: 0 biotin 1,000 mcg tablet,chewable 1,000 mcg PO DAILY RF: 0 ferrous sulfate 325 mg (65 mg iron) tablet 325 mg PO DAILY RF: 0 lysine [L-Lysine] 500 mg tablet 500 mg PO DAILY RF: 0 multivitamin Tablet 1 tab PO DAILY RF: 0 cholecalciferol (vitamin D3) 5,000 unit tablet,disintegrating 5,000 unit PO DAILY RF: 0 promethazine 25 mg tablet 25 mg PO TID PRN (Reason: nausea and vomiting) 30 Days Qty: 90 RF: 0 valacyclovir 1 gram tablet 1,000 mg PO DAILY Qty: 2 RF: 3 levothyroxine 25 mcg tablet See Rx Instructions .ROUTE .COMPLEX Qty: 90 RF: 3 sertraline 50 mg tablet See Rx Instructions .ROUTE .COMPLEX Qty: 30 RF: 2 omeprazole 20 mg capsule,delayed release(DR/EC) See Rx Instructions .ROUTE .COMPLEX Qty: 60 RF: 2 atorvastatin 80 mg tablet See Rx Instructions .ROUTE .COMPLEX Qty: 30 RF: 2 Tylenol 325 mg Tablet 325 mg PO QID PRN (Reason: Pain) RF: 0 ProAir HFA 90 mcg/actuation HFA aerosol inhaler 1 - 2 puff INHALATION Q4H PRN (Reason: Shortness Of Breath) RF: 0 Discharge Orders: Discharge ED (Routine); Ordered 05/10/21 Ordered By: Jc Mart Referrals: Jocelyn Carreon NP [Primary Care Provider] - Discharge Diet: Usual diet Discharge Activity: Increase activity as tolerated Patient Instructions: Low Back Strain (ED) Activity Restrictions/Additional Instructions: Follow-up with medical provider as directed. Take medications as prescribed. Return to the ER or your medical provider if condition worsens. Please read and understand discharge instructions. If any questions ask please. Do not lift anything over 10 pounds for next 3 to 4 weeks. Follow-up your primary care provider and discuss with them if they would like to order an MRI for your low back pain symptoms. Coding Level of Care Code ED Airworthiness Inspector for Fede Wilson
[2021-05-10 16:14] VITALS: BP 125/80; PULSE 80; RESP 17; O2SAT 99
== END 2021-05-10 16:16 | disposition home or self-care (01) ==
PROVIDERS: Emergency Provider Nurse Practitioner Family; PCP Nurse Practitioner Family
DX: S39.012A Strain of muscle, fascia and tendon of lower back, initial encounter (principal); Z79.82 Long term (current) use of aspirin; E78.5 Hyperlipidemia, unspecified; Z86.73 Personal history of transient ischemic attack (TIA), and cerebral infarction without residual deficits; Z77.22 Contact with and (suspected) exposure to environmental tobacco smoke (acute) (chronic); X58.XXXA Exposure to other specified factors, initial encounter
CPT/HCPCS: 99282

== ENCOUNTER → 2021-09-28 10:12 | Outpatient (BNVA) | payer MEDICARE, MEDICAID, SELFPAY | PROVIDERS: PCP Nurse Practitioner Family; Visit Provider Nurse Practitioner Family | DX: L08.9 Local infection of the skin and subcutaneous tissue, unspecified (principal) | CPT/HCPCS: 80053 ==

== ENCOUNTER → 2021-10-15 10:00 | Outpatient (BNVA) | payer MEDICARE, MEDICAID, SELFPAY | PROVIDERS: PCP Nurse Practitioner Family; Visit Provider Nurse Practitioner | DX: R53.83 Other fatigue (principal); R23.8 Other skin changes | CPT/HCPCS: 84443; 85025; 85651; 86038; 86140 ==

== ENCOUNTER → 2022-04-28 15:06 | Outpatient (BNVA) | payer MEDICARE, MEDICAID, SELFPAY | PROVIDERS: PCP Nurse Practitioner Family; Visit Provider Nurse Practitioner Family | DX: R05.9 Cough, unspecified (principal); Z20.822 Contact with and (suspected) exposure to COVID-19; M79.10 Myalgia, unspecified site; J06.9 Acute upper respiratory infection, unspecified | CPT/HCPCS: 80053 ==

== ENCOUNTER 2022-05-07 16:05 | Outpatient (CLI) | payer MEDICARE, MEDICAID, SELFPAY ==
--- NOTE | 2022-05-07 16:25 | XR_ITS ---
WS: [id number] XR lumbar spine 2-3V* [id number] REASON FOR EXAM: M54.50 - Low back pain, unspecified FINDINGS: Minimal rotatory scoliosis convex left. Mild straightening of the normal lordosis of the lumbar spine . No significant vertebral body abnormality. Intervertebral disc spaces are relatively well-preserved. No spondylolysis. No significant neutral spondylolisthesis. Moderate degenerative arthropathy in the facet on the right at L3-L4 and L2-L3. XR/XR lumbar spine 2-3V* [id number] IMPRESSION: Lumbar degenerative spondylosis as above.
== END 2022-05-07 16:06 | disposition home or self-care (01) ==
LOC: RAD 16:11
PROVIDERS: PCP Nurse Practitioner Family; Visit Provider Nurse Practitioner Family
DX: M47.896 Other spondylosis, lumbar region (principal)
CPT/HCPCS: 72100

== ENCOUNTER 2022-05-15 12:22 | Emergency (ER) | payer MEDICARE, MEDICAID, SELFPAY ==
[2022-05-15 12:33] VITALS: BP 138/93; PULSE 80; RESP 16; TEMP 36.9; O2SAT 99
[2022-05-15 15:33] LABS: Add Urine Microscopic? NO; Charge for UA Resulting for Rev
[2022-05-15 15:36] LABS: HCG Qualitative Urine. Negative (Negative)
--- NOTE | 2022-05-15 15:43 | ED_ITS ---
HPI - Back Pain/Injury General: Chief Complaint: Back Pain/Injury Stated Complaint: back pain/nauseas Time Seen by Provider: 05/15/22 15:16 Source: patient Mode of arrival: ambulatory Limitations: no limitations History of Present Illness: Patient is a nice 41-year-old female presents to ED today with a complaint of back pain. Patient states she has longstanding history of back pain and will oftentimes get flares of what she refers to as her sciatica . He states these are normally treated successfully with anti- inflammatories and steroids. Patient states recently they have moved into a new house and was doing some heavy lifting and thinks she may have exacerbated her back. She states she was given IM Steroids and Toradol through the walk-in clinic and these have not provided her much relief. She states pain seems to radiate down into mainly her right lower extremity and right buttock. She does not complain of any saddle anesthesia. She reporting normal bowel and bladder functions. Patient states she did contact her primary care provider who ordered an MRI of her back and this is scheduled for 05/25. MD elicited complaint: back pain Pertinent past history: prior back pain Onset (ago): day(s) Timing: constant Severity: severe Similar Symptoms Previously: Yes Quality: sharp Location: lumbar spine, right lower back and left lower back Exacerbating factors: movement, walking and lifting Relieving factors: supine Associated symptoms: Reports difficulty walking (Secondary to back discomfort); Deny abdominal pain, chills, dysuria, fatigue, fever(s) or hematuria Treatments prior to arrival: NSAIDS and acetaminophen Work related injury: No Review of Systems Const: Denies: fever(s), chills, body aches, fatigue or malaise Card: Denies: chest pain Resp: Denies: dyspnea GI: Denies: abdominal pain : Denies: flank pain, dysuria or hematuria Musc: Reports: back pain; Denies: neck pain, extremity pain, extremity swelling, joint pain, joint swelling, joint redness or limited range of motion Skin/Breast: Denies: rash Neuro: Reports: difficulty walking (Secondary to back discomfort); Denies: headache(s), numbness in extremities, weakness in extremities or sensory changes PFS ED PFSH: Medical History Adjustment disorder, unspecified Dyslipidemia H/O coronary angiogram Major depressive disorder, recurrent severe without psychotic features Old cerebrovascular accident (CVA) without late effect Post-traumatic stress disorder, chronic Post-traumatic stress disorder, chronic S/P transesophageal echocardiogram (LUCIA) SOB (shortness of breath) Tachycardia Surgical History H/O foot surgery H/O gastric bypass History of cholecystectomy History of hysterectomy History of loop recorder Hx of tonsillectomy S/P spinal surgery Family History Other Diabetes Stroke Social History Smoking and tobacco status: never smoked Second hand smoke exposure: Yes Smoking risk assessment/counseling performed?: Yes Tobacco counseling given: counseling >3 minutes Alcohol intake: current Alcohol intake frequency: holidays/special occasions only Counseling given: No Counseling given: No Lives independently: Yes Household members: significant other Marital status: Current occupational status: disabled History of recent travel: No Current gender identity: Female Physical Exam Const: COMMON NORMALS: no acute distress, average body habitus, patient orien selam x3, no limitations, healthy appearing, alert and well nourished GENERAL APPEARANCE: cooperative ORIENTATION/CONSCIOUSNESS: Yes awake, Yes oriented to person, Yes oriented to place and Yes oriented to time HENMT: COMMON NORMALS: normocephalic and atraumatic HEAD & SCALP: normal to inspection, normocephalic and atraumatic Resp: COMMON NORMALS: normal respiratory effort GI: COMMON NORMALS: Normal to inspection, nondistended, normoactive bowel sounds present, Soft to palpation, non-tender, No hepatosplenomegaly present and no masses PALPATION: Yes Soft to palpation and Yes No hepatosplenomegaly present : COMMON NORMALS: Yes no CVA tenderness BLADDER/KIDNEY EXAM: Yes no CVA tenderness Back/Pelvis: COMMON NORMALS: no CVA tenderness THORACIC SPINE/UPPER BACK: Yes normal to inspection, Yes thoracic ROM normal, No thoracic spinal tenderness, No paraspinal muscle tenderness and No paraspinal muscle spasm LUMBAR SPINE/LOWER BACK: Yes ROM limited, Yes pain with ROM, Yes lumbar spinal tenderness, Yes paraspinal muscle tenderness, No paraspinal muscle spasm, No mass present and Yes straight leg raise negative bilaterally PELVIS: Yes buttock abnormal and Yes sciatic notch tenderness SACROILIAC JOINTS: Yes SI joint(s) abnormal SACRUM: no tenderness COCCYX: no tenderness Extremity: COMMON NORMALS: normal to inspection and full ROM GENERAL: Yes normal exam except as noted Neuro: DAV COMA SCALE: document GCS findings [place] coma scale eye opening: Spontaneous [place] coma scale verbal response: Orientated Dav coma scale motor response: Obey commands [place] coma scale total score: 15 COMMON NORMALS: patient oriented x3, moves all extremities, no focal motor deficits, no sensory deficits noted and gait normal SENSORIUM/ORIENTATION: Yes alert, Yes oriented to person, Yes oriented to place and Yes oriented to time MOTOR EXAM: 5/5 motor strength present throughout DEEP TENDON REFLEXES: Right patellar reflex intensity grade: 2+ and Left patellar reflex intensity grade: 2+ Skin: COMMON NORMALS: no rashes or lesions noted GENERAL SKIN EXAM: no rashes or lesions noted Course Vital Signs: Vital signs: Vital Signs Temperature 98.4 F 05/15/22 12:33 Pulse Rate 80 05/15/22 12:33 Respiratory Rate 16 05/15/22 12:33 Blood Pressure 138/93 05/15/22 12:33 Pulse Oximetry 99 05/15/22 12:33 MDM - Back Pain/Injury Medical Decision Making Will place patient on a steroid pack, try her on Robaxin, and give her a small amount of pain medications. She states she is limited on NSAID use secondary to previous gastric surgery. Recommend she continue current plan for MRI on 05/25. Return ED precautions given. Labs Laboratory Results HCG, Qual Negative (Negative) 05/15/22 15:25 Urine Color Yellow (Yellow) 05/15/22 15:25 Urine Appearance Clear (CLEAR) 05/15/22 15:25 Urine pH 6.5 (5-7) 05/15/22 15:25 Ur Specific [place] 1.010 (1.005-1.030) 05/15/22 15:25 Urine Protein Neg (Negative) 05/15/22 15:25 Urine Glucose (UA) Norm (Normal) 05/15/22 15:25 Urine Ketones 1+ (Negative) H 05/15/22 15:25 Urine Blood Neg (Negative) 05/15/22 15:25 Urine Nitrate Negative (Negative) 05/15/22 15:25 Urine Bilirubin Neg (Negative) 05/15/22 15:25 Urine Urobilinogen Norm mg/dL (Negative) 05/15/22 15:25 Ur Leukocyte Esterase Negative (Negative) 05/15/22 15:25 Discharge Plan Discharge Patient Disposition: Home Clinical Impression: Low back pain Condition: Stable Prescriptions: New methocarbamol 500 mg tablet 1,000 mg PO Q8H Qty: 30 0RF hydrocodone-acetaminophen 5-325 mg tablet 1 tab PO Q6H PRN (Reason: pain) Qty: 15 0RF Medrol (Binh) 4 mg tablets,dose pack See Rx Instructions .ROUTE .COMPLEX Qty: 21 0RF Rx Instructions: orally per package directions No Action amitriptyline 25 mg tablet 75 mg PO DAILY Galzin 25 mg (zinc) capsule 25 mg PO DAILY mecobalamin (vitamin B12) 5,000 mcg tablet,disintegrating 5,000 mcg PO DAILY All Day Allergy (cetirizine) 10 mg capsule 10 mg PO DAILY aspirin 325 mg tablet 325 mg PO DAILY biotin 1,000 mcg tablet,chewable 1,000 mcg PO DAILY ferrous sulfate 325 mg (65 mg iron) tablet 325 mg PO DAILY lysine [L-Lysine] 500 mg tablet 500 mg PO DAILY cholecalciferol (vitamin D3) 5,000 unit tablet,disintegrating 5,000 unit PO DAILY promethazine 25 mg tablet 25 mg PO TID PRN (Reason: nausea and vomiting) 30 Days Qty: 90 0RF mupirocin 2 % ointment 1 applic topical BID Qty: 15 2RF promethazine-DM 6.25-15 mg/5 mL syrup 5 - 10 ml PO Q6H PRN (Reason: cough) Qty: 200 1RF valacyclovir 1 gram tablet See Rx Instructions .ROUTE .COMPLEX Qty: 21 0RF Dose Instruction: TAKE ONE TABLET BY MOUTH THREE TIMES DAILY FOR 7 DAYS Rx Instructions: TAKE ONE TABLET BY MOUTH THREE TIMES DAILY FOR 7 DAYS albuterol sulfate [Ventolin HFA] 90 mcg/actuation HFA aerosol inhaler 2 puff inhalation 6XD PRN (Reason: shortness of breath or wheezing) Qty: 8.5 3RF budesonide-formoterol [Symbicort] 160-4.5 mcg/actuation HFA aerosol inhaler 2 puff inhalation Q12H Qty: 10.2 6RF omeprazole 20 mg capsule,delayed release(DR/EC) 20 mg PO BID 30 Days Qty: 60 3RF sertraline 50 mg tablet 50 mg PO DAILY 30 Days Qty: 30 3RF cyclobenzaprine 10 mg tablet See Rx Instructions PO TID PRN (Reason: muscle spasm) Qty: 30 0RF Rx Instructions: 1/2 to 1 tablet orally three times daily PRN; meloxicam 15 mg tablet 15 mg PO DAILY Qty: 30 0RF levothyroxine 25 mcg tablet See Rx Instructions .ROUTE .COMPLEX Qty: 90 3RF Dose Instruction: TAKE ONE TABLET BY MOUTH EVERY MORNING ON an EMPTY stomach Rx Instructions: TAKE ONE TABLET BY MOUTH EVERY MORNING ON an EMPTY stomach atorvastatin 80 mg tablet See Rx Instructions .ROUTE .COMPLEX Qty: 30 3RF Dose Instruction: TAKE ONE TABLET BY MOUTH EVERY DAY Rx Instructions: TAKE ONE TABLET BY MOUTH EVERY DAY Tylenol 325 mg Tablet 325 mg PO QID PRN (Reason: Pain) ProAir HFA 90 mcg/actuation HFA aerosol inhaler 1 - 2 puff INHALATION Q4H PRN (Reason: Shortness Of Breath) Discharge Orders: Discharge ED (Routine); Ordered 05/15/22 Ordered By: Caitlin Casey Referrals: Graciela Raya FNP [Primary Care Provider] - Patient Instructions: Opioid Safety, Pain Management Coding Level of Care Code ED Geotechnical Operating Engineer for Fede Wilson
[2022-05-15 15:51] LABS: Urine Color Yellow (Yellow)
[2022-05-15 15:52] LABS: Bilirubin Urine Neg (Negative); Blood Urine Neg (Negative); Glucose Urine UA Norm (Normal); Ketones Urine 1+ (Negative); Leukocyte Esterase Urine Negative (Negative); Nitrate Urine Negative (Negative); Protein Urine Neg (Negative); Urine Appearance Clear (CLEAR); Urobilinogen Urine Norm (Negative); pH Urine 6.5 (5-7)
== END 2022-05-15 16:18 | disposition home or self-care (01) ==
PROVIDERS: Emergency Medicine; Emergency Provider Physician Assistant; PCP Nurse Practitioner Family
DX: M54.50 Low back pain, unspecified (principal); Z79.82 Long term (current) use of aspirin; E78.5 Hyperlipidemia, unspecified; Z86.73 Personal history of transient ischemic attack (TIA), and cerebral infarction without residual deficits
CPT/HCPCS: 81003; 81025; 99284

== ENCOUNTER 2022-05-25 07:34 | Outpatient (CLI) | payer MEDICARE, MEDICAID, SELFPAY ==
--- NOTE | 2022-05-25 08:22 | CT_ITS ---
WS: [id number] CT LUMBAR SPINE TECHNIQUE: Noncontrast CT of the lumbar spine with coronal and sagittal reformatted images. CLINICAL INFORMATION: M54.50 - Low back pain, unspecified COMPARISON: None. DLP: 785.[address] scans at [facility] use at least one of these dose optimization techniques: automated e xposure control; mA and/or kV adjustment per patient size (includes targeted exams where dose is matc hed to clinical indication); or iterative reconstruction. FINDINGS: Normal lumbar alignment. No acute compression. No high-grade central canal stenosis. Mild disc bulgin g L3-L4 L4-L5 and L5-S1. No visualized pars defects. No significant anterolisthesis. No acute kyara zayra fractures. Adrenal glands are normal. Postoperative changes GE junction. Slight atelectasis in the lower lobes p artially visualized. L1-L2: Normal. L2-L3: No significant disc bulging. Mild facet arthropathy. Spinal canal and foramen are patent. L3-L4: Slight retrolisthesis L3 on L4. Mild annular bulging with slight impingement on the LEFT subar ticular recess and traversing LEFT L4 nerve root. Mild LEFT foraminal narrowing. Mild facet arthropat hy. Spinal canal and RIGHT foramen are patent. L4-L5: Shallow central disc protrusion. Mild central canal stenosis. Slight impingement on the sudarshan sing L5 nerve roots bilaterally LEFT greater than RIGHT. Mild facet arthropathy. Mild bilateral terrance inal narrowing L5-S1: Mild annular bulging with slight contact of the S1 nerve roots. Spinal canal is patent. Mild b ilateral foraminal narrowing. Mild facet arthropathy. Visualized pelvic bony structures: Normal. Paravertebral soft tissues: Normal. CT/CT lumbar spine wo con* [id number] IMPRESSION: 1. Mild lumbar curve. No acute compression. 2. Mild annular bulging L4-L5 with mild central canal stenosis with a small sh allow central protrusion. Slight impingement on traversing LEFT greater than RI GHT L5 nerve roots. Recommend further evaluation with MRI for better anatomic d etail. 3. Mild annular bulging L3-L4 slight impingement traversing LEFT L4 nerve root in the subarticular recess. 4. Mild annular bulging L5-S1 with slight contact of the S1 nerve roots. 5. Mild foraminal narrowing more prominent at LEFT L3-L4, bilateral L4-L5 LEFT greater than RIGHT and LEFT L5-S1. 6. Mild facet arthropathy L3-L5.
== END 2022-05-25 07:35 | disposition home or self-care (01) ==
LOC: RAD 07:36
PROVIDERS: PCP Nurse Practitioner Family; Visit Provider Nurse Practitioner Family
DX: M47.816 Spondylosis without myelopathy or radiculopathy, lumbar region (principal); M51.26 Other intervertebral disc displacement, lumbar region; M51.27 Other intervertebral disc displacement, lumbosacral region
CPT/HCPCS: 72131

== ENCOUNTER → 2022-06-03 09:52 | Outpatient (BNVA) | payer MEDICARE, MEDICAID, SELFPAY | PROVIDERS: PCP Nurse Practitioner Family; Referring Provider Nurse Practitioner Family; Visit Provider Physician Assistant | DX: M54.16 Radiculopathy, lumbar region (principal); M54.50 Low back pain, unspecified | CPT/HCPCS: 99203 ==

== ENCOUNTER → 2022-07-06 12:47 | Outpatient (BNVA) | payer MEDICARE, MEDICAID, SELFPAY | PROVIDERS: PCP Nurse Practitioner Family; Visit Provider Physician Assistant | DX: M47.26 Other spondylosis with radiculopathy, lumbar region (principal); M48.061 Spinal stenosis, lumbar region without neurogenic claudication; M51.36 Other intervertebral disc degeneration, lumbar region | CPT/HCPCS: 99213 ==

== ENCOUNTER → 2022-07-26 10:24 | Outpatient (BNVA) | payer MEDICARE, MEDICAID, SELFPAY | PROVIDERS: PCP Nurse Practitioner Family; Visit Provider Anesthesiology Pain Medicine | DX: M54.16 Radiculopathy, lumbar region (principal); M51.36 Other intervertebral disc degeneration, lumbar region; M47.816 Spondylosis without myelopathy or radiculopathy, lumbar region | CPT/HCPCS: 99204 ==

== ENCOUNTER → 2022-08-09 13:39 | Outpatient (BNVA) | payer MEDICARE, MEDICAID, SELFPAY | PROVIDERS: PCP Nurse Practitioner Family; Visit Provider Anesthesiology Pain Medicine | DX: M47.816 Spondylosis without myelopathy or radiculopathy, lumbar region (principal); M54.16 Radiculopathy, lumbar region | CPT/HCPCS: 64493; 64494; 64495; J3490 ==

== ENCOUNTER → 2022-08-23 14:32 | Outpatient (BNVA) | payer MEDICARE, MEDICAID, SELFPAY | PROVIDERS: PCP Nurse Practitioner Family; Visit Provider Anesthesiology Pain Medicine | DX: M47.816 Spondylosis without myelopathy or radiculopathy, lumbar region (principal); M54.16 Radiculopathy, lumbar region | CPT/HCPCS: 64493; 64494; 64495; J3490 ==

== ENCOUNTER → 2022-08-30 17:09 | Outpatient (BNVA) | payer MEDICARE, MEDICAID, SELFPAY | PROVIDERS: PCP Nurse Practitioner Family; Visit Provider Nurse Practitioner Family | DX: E11.9 Type 2 diabetes mellitus without complications (principal) | CPT/HCPCS: 80053; 83036; 84443; 85025 ==

== ENCOUNTER → 2022-09-14 10:38 | Outpatient (BNVA) | payer MEDICARE, MEDICAID, SELFPAY | PROVIDERS: PCP Nurse Practitioner Family; Visit Provider Anesthesiology Pain Medicine | DX: M54.16 Radiculopathy, lumbar region (principal); M51.36 Other intervertebral disc degeneration, lumbar region; M47.816 Spondylosis without myelopathy or radiculopathy, lumbar region | CPT/HCPCS: 99214 ==

== ENCOUNTER 2022-09-18 21:27 | Emergency (ER) | payer MEDICARE, MEDICAID, SELFPAY ==
[2022-09-18 21:37] VITALS: BP 131/81; PULSE 81; RESP 16; TEMP 36.6; O2SAT 100
--- NOTE | 2022-09-18 22:03 | W.ED.EXTPRO ---
HPI - Extremity Problem General: Chief complaint: Extremity Injury, Lower Stated complaint: stepped on nail Time Seen by Provider: 09/18/22 21:49 Source: patient Mode of arrival: ambulatory Limitations: no limitations History of Present Illness: 42-year-old female who states that she had stepped on a nail she states she had a small puncture wound to her foot she was concerned she was not up-to-date with tetanus she does have a very very small puncture wound no signs of any deep puncture wound she denies any pain denies any redness. She denies any worsening proving factors. Associated symptoms: Deny chest pain, fever(s) or rash Review of Systems Const: Denies: fever(s), chills, body aches or change in appetite Eyes: Denies: blurry vision or eye discomfort ENMT: Denies: throat pain or dental pain Card: Denies: chest pain Resp: Denies: dyspnea GI: Denies: abdominal pain, nausea, vomiting or diarrhea : Denies: dysuria Musc: Denies: neck pain or back pain Skin/Breast: Denies: rash PFSH ED PFSH: Medical History Adjustment disorder, unspecified Dyslipidemia H/O coronary angiogram Major depressive disorder, recurrent severe without psychotic features Old cerebrovascular accident (CVA) without late effect Pacemaker Post-traumatic stress disorder, chronic Post-traumatic stress disorder, chronic S/P transesophageal echocardiogram (LUCIA) SOB (shortness of breath) Tachycardia Surgical History H/O foot surgery H/O gastric bypass History of cholecystectomy History of hysterectomy History of loop recorder Hx of tonsillectomy S/P spinal surgery Family History Other Diabetes Stroke Social History Smoking and tobacco status: never smoked Second hand smoke exposure: Yes Smoking risk assessment/counseling performed?: Yes Tobacco counseling given: counseling >3 minutes Alcohol intake: current Alcohol intake frequency: holidays/special occasions only Counseling given: No Substance/Drug Use: never Counseling given: No Lives independently: Yes Household members: significant other Marital status: Current occupational status: disabled Do you think of yourself as: Lesbian/Malik/Homosexual Current gender identity: Female Physical Exam Const: COMMON NORMALS: no acute distress, patient oriented x3 and healthy appearing HENMT: COMMON NORMALS: normocephalic and atraumatic HEAD & SCALP: normocephalic and atraumatic Eye: COMMON NORMALS: Equal, round and reactive pupils present and EOMs intact bilaterally PUPIL: Yes Equal, round and reactive pupils present Neck/C-Spine: COMMON NORMALS: full ROM and supple Chest: COMMONS NORMALS: normal inspection of the chest and normal palpation of entire chest wall Resp: COMMON NORMALS: normal respiratory effort, No retractions, No use of accessory muscles and clear to auscultation bilaterally AUSCULTATION: clear to auscultation bilaterally Cardio: COMMON NORMALS: regular rate, regular rhythm and No murmurs present (Cardio) RATE: regular rate RHYTHM: regular rhythm GI: COMMON NORMALS: Normal to inspection, nondistended, normoactive bowel sounds present, Soft to palpation, non-tender and no masses PALPATION: Yes Soft to palpation Extremity: COMMON NORMALS: normal to inspection and full ROM Neuro: COMMON NORMALS: patient oriented x3, moves all extremities and no focal motor deficits Psych: COMMON NORMALS: mental status grossly normal, Normal thought process present and cooperative THOUGHT PROCESS: Normal thought process present Skin: COMMON NORMALS: no rashes or lesions noted and no wounds GENERAL SKIN EXAM: no rashes or lesions noted Course Vital Signs: Vital signs: Vital Signs Temperature 97.8 F 09/18/22 21:37 Pulse Rate 81 09/18/22 21:37 Respiratory Rate 16 09/18/22 21:37 Blood Pressure 131/81 09/18/22 21:37 Pulse Oximetry 100 09/18/22 21:37 MDM - Extremity (Nontraumatic) Medical Decision Making Patient presents here with a puncture wound to her left great toe it is very minimal does not appear that it was punctured deeply. We will place her on Augmentin she is to follow-up with her PCP return if she has any signs of infection we will give her her tetanus update Discharge Plan Discharge Patient Disposition: Home Clinical Impression: Puncture wound of foot Condition: Stable Prescriptions: New Augmentin 500-125 mg tablet 1 tab PO BID Qty: 10 0RF No Action amitriptyline 25 mg tablet 75 mg PO DAILY Galzin 25 mg (zinc) capsule 25 mg PO DAILY mecobalamin (vitamin B12) 5,000 mcg tablet,disintegrating 5,000 mcg PO DAILY All Day Allergy (cetirizine) 10 mg capsule 10 mg PO DAILY aspirin 325 mg tablet 325 mg PO DAILY biotin 1,000 mcg tablet,chewable 1,000 mcg PO DAILY ferrous sulfate 325 mg (65 mg iron) tablet 325 mg PO DAILY lysine [L-Lysine] 500 mg tablet 500 mg PO DAILY cholecalciferol (vitamin D3) 5,000 unit tablet,disintegrating 5,000 unit PO DAILY promethazine 25 mg tablet 25 mg PO TID PRN (Reason: nausea and vomiting) 30 Days Qty: 90 0RF mupirocin 2 % ointment 1 applic topical BID Qty: 15 2RF valacyclovir 1 gram tablet See Rx Instructions .ROUTE .COMPLEX Qty: 21 0RF Dose Instruction: TAKE ONE TABLET BY MOUTH THREE TIMES DAILY FOR 7 DAYS Rx Instructions: TAKE ONE TABLET BY MOUTH THREE TIMES DAILY FOR 7 DAYS albuterol sulfate [Ventolin HFA] 90 mcg/actuation HFA aerosol inhaler 2 puff inhalation 6XD PRN (Reason: shortness of breath or wheezing) Qty: 8.5 3RF budesonide-formoterol [Symbicort] 160-4.5 mcg/actuation HFA aerosol inhaler 2 puff inhalation Q12H Qty: 10.2 6RF pantoprazole 40 mg tablet,delayed release (DR/EC) 40 mg PO DAILY Qty: 30 2RF levothyroxine 25 mcg tablet See Rx Instructions .ROUTE .COMPLEX Qty: 90 3RF Dose Instruction: TAKE ONE TABLET BY MOUTH EVERY MORNING ON an EMPTY stomach Rx Instructions: TAKE ONE TABLET BY MOUTH EVERY MORNING ON an EMPTY stomach hydrocodone-acetaminophen 5-325 mg tablet 1 tab PO Q6H PRN (Reason: pain) 7 Days Qty: 28 0RF cyclobenzaprine 10 mg tablet See Rx Instructions PO TID PRN (Reason: muscle spasm) Qty: 30 0RF Rx Instructions: 1/2 to 1 tablet orally three times daily PRN; sertraline 50 mg tablet See Rx Instructions .ROUTE .COMPLEX Qty: 30 0RF Dose Instruction: TAKE ONE TABLET BY MOUTH DAILY Rx Instructions: TAKE ONE TABLET BY MOUTH DAILY atorvastatin 80 mg tablet See Rx Instructions .ROUTE .COMPLEX Qty: 90 0RF Dose Instruction: TAKE ONE TABLET BY MOUTH EVERY DAY Rx Instructions: TAKE ONE TABLET BY MOUTH EVERY DAY Tylenol 325 mg Tablet 325 mg PO QID PRN (Reason: Pain) ProAir HFA 90 mcg/actuation HFA aerosol inhaler 1 - 2 puff INHALATION Q4H PRN (Reason: Shortness Of Breath) Discharge Orders: Discharge ED (Routine); Ordered 09/18/22 Ordered By: Edilma Jackson Referrals: Graciela Raya FNP [Primary Care Provider] - Discharge Diet: Advance as tolerated Discharge Activity: Resume usual activity Patient Instructions: Puncture Wound in the Foot (ED) Coding Level of Care Code ED Product Development Carpenter for Fede Wilson
[2022-09-18] MEDS: tetanus-dipt-pertussis 0.5 mL SDV IM (22:12)
== END 2022-09-18 22:26 | disposition home or self-care (01) ==
PROVIDERS: Emergency Provider Emergency Medicine; PCP Nurse Practitioner Family
DX: S91.132A Puncture wound without foreign body of left great toe without damage to nail, initial encounter (principal); W45.0XXA Nail entering through skin, initial encounter; Z77.22 Contact with and (suspected) exposure to environmental tobacco smoke (acute) (chronic); E78.5 Hyperlipidemia, unspecified; Z86.73 Personal history of transient ischemic attack (TIA), and cerebral infarction without residual deficits; Z95.0 Presence of cardiac pacemaker; Z23 Encounter for immunization
CPT/HCPCS: 90715; 99283

== ENCOUNTER 2022-09-19 15:52 | Emergency (ER) | payer MEDICARE, MEDICAID, SELFPAY ==
[2022-09-19 16:06] VITALS: BP 127/82; PULSE 91; RESP 14; TEMP 37.6; O2SAT 99
--- NOTE | 2022-09-19 17:39 | XRR_ITS ---
PROCEDURE INFORMATION: Exam: XR Chest Exam date and time: 09/19/2022 5:50 PM Age: 42 years old Clinical indication: Chest wall pain; Additional info: Pain, chest/back pain TECHNIQUE: Imaging protocol: Radiologic exam of the chest. Views: 2 views. COMPARISON: CT chest wo con [id number] 08/24/2019 9:38 AM FINDINGS: Tubes, catheters and devices: Left chest pacemaker. Lungs: Unremarkable. No consolidation. Pleural spaces: Unremarkable. No pleural effusion. No pneumothorax. Heart/Mediastinum: Unremarkable. No cardiomegaly. Bones/joints: Unremarkable. Intraperitoneal space: Left upper quadrant surgical clips. XR/XR chest 2V* [id number] IMPRESSION: No acute findings.
--- NOTE | 2022-09-19 17:39 | XRR_ITS ---
PROCEDURE INFORMATION: Exam: XR Sternum Exam date and time: 09/19/2022 5:50 PM Age: 42 years old Clinical indication: Sternal or substernal pain; Additional info: Pain, inferior portion TECHNIQUE: Imaging protocol: Radiologic exam of the sternum. Views: 2 or more views. COMPARISON: 1. CR (CHEST, ) 09/19/2022 5:[address] chest wo con [id number] 08/24/2019 9:38 AM FINDINGS: Bones/joints: Normal. Soft tissues: Normal. XR/XR sternum min 2V [id number] IMPRESSION: No acute findings.
--- NOTE | 2022-09-19 18:04 | ECG_ITS ---
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 Measurements Intervals [place] Rate: 75 P: 56 [place]: 179 QRS: 70 QRSD: 93 T: 64 QT: 394 QTc: 441 Interpretive Statements SINUS RHYTHM Compared to ECG 08/14/2019 17:53:37 No significant changes Electronically Signed On 09-19-2022 23:09:57 CDT by Delfin Almeiad M.D. [email or web address]
[2022-09-19 18:12] VITALS: BP 139/89; PULSE 75; O2SAT 99
[2022-09-19] MEDS: ketorolac 30 mg/mL INJ 15 MG IVP (18:16)
[2022-09-19] MEDS: orphenadrine 30 mg/mL Inj 2 mL 60 MG IVP (18:16)
[2022-09-19 18:34] LABS: Basophils # 0.1 10^3/uL (0.0-0.1); Basophils % 0.7 %; Eosinophils # 0.3 10^3/uL (0.0-0.8); Eosinophils % 2.6 %; Hematocrit 42.7 % (37.0-47.0); Hemoglobin 14.3 g/dL (11.5-15.3); Lymphocytes # 2.1 10^3/uL (0.8-4.8); Mean Corpuscular HGB Conc 33.5 g/dL (30.0-36.0); Mean Corpuscular Hemoglobin 31.9 pg (28.0-34.0); Mean Corpuscular Volume 95.3 fl (81-99); Mean Platelet Volume 9.6 fL (7.4-10.4); Monocytes # 0.7 10^3/uL (0.2-0.9); Neutrophils # 6.49 10^3/uL (1.8-7.7); Neutrophils % 67.4 %; Nucleated Red Blood Cells % 0 %; Platelet Count 212 10^3/cmm (130-400); Red Blood Count 4.48 10^6/uL (4.1-5.3); Red Cell Distribution Width 11.7 % (12.1-15.1); White Blood Count 9.6 10^3/uL (4.0-10.0)
[2022-09-19 18:43] LABS: Alanine Aminotransferase 20 U/L (0-33); Albumin Level 4.1 g/dL (3.5-5.2); Alkaline Phosphatase 100 U/L (35-105); Anion Gap 16.5 (5-19); Aspartate Amino Transferase 19 U/L (0-32); Blood Urea Nitrogen 6 mg/dL (6-20); Calcium 8.6 mg/dL (8.5-10.5); Carbon Dioxide 21 mmol/L (22-29); Chloride 105 mmol/L (98-107); Creatinine Clr Calc Pharmacy 121.9686; Globulin 2.4 g/dL (1.3-4.6); Glomerular Filtration Rate 108.6 mL/min (90-130); Glucose 89 mg/dL (65-115); Osmolality Calculated 285 mOsm/kg (285-295); Potassium 3.5 mmol/L (3.5-5.1); Sodium 139 mmol/L (136-145); Total Bilirubin 0.3 mg/dL (0.15-1.2); Total Protein 6.5 g/dL (6.6-8.7)
--- NOTE | 2022-09-19 19:02 | W.ED.BACK ---
HPI - Back Pain/Injury General: Chief Complaint: Back Pain/Injury Stated Complaint: here last night, back pain Time Seen by Provider: 09/19/22 17:23 Source: patient Mode of arrival: ambulatory Limitations: no limitations History of Present Illness: Patient presents to the emergency department today accompanied by significant other for evaluation treatment of back, sternal, epigastric pain. Patient reports sudden onset of pain this afternoon. She reports a long history of issues with her low back but has never had issues with her mid and upper back in the past. She denies known trauma. Patient does have an extensive coronary history as well as past medical history involving Timbo-en-Y surgery. Patient admits she has been having some GI issues recently and is supposed to be having a scope. However, today she reports she picked up a standard hammer and hit a nail approximately 3 times when she all of a sudden dropped to her knees. Patient reports stabbing pains from her back into the front of her chest. She notes inferior sternal pain and epigastric region discomfort. Patient notices worsening pain with deep breathing and leaning forward. She has a history of sick sinus syndrome and currently has a pacemaker Review of Systems General: Reports: 10 or more systems reviewed and unremarkable except in HPI and below PFSH ED PFSH: Medical History Adjustment disorder, unspecified Dyslipidemia H/O coronary angiogram Major depressive disorder, recurrent severe without psychotic features Old cerebrovascular accident (CVA) without late effect Pacemaker Post-traumatic stress disorder, chronic Post-traumatic stress disorder, chronic S/P transesophageal echocardiogram (LUCIA) SOB (shortness of breath) Tachycardia Surgical History H/O foot surgery H/O gastric bypass History of cholecystectomy History of hysterectomy History of loop recorder Hx of tonsillectomy S/P spinal surgery Family History Other Diabetes Stroke Social History Smoking and tobacco status: never smoked Second hand smoke exposure: Yes Smoking risk assessment/counseling performed?: Yes Tobacco counseling given: counseling >3 minutes Alcohol intake: current Alcohol intake frequency: holidays/special occasions only Counseling given: No Substance/Drug Use: never Counseling given: No Lives independently: Yes Household members: significant other Marital status: Current occupational status: disabled Do you think of yourself as: Lesbian/Malik/Homosexual Current gender identity: Female Physical Exam Const: COMMON NORMALS: no acute distress, patient oriented x3 and alert HENMT: COMMON NORMALS: normocephalic, atraumatic and hearing grossly normal bilaterally HEAD & SCALP: normocephalic and atraumatic Eye: COMMON NORMALS: Equal, round and reactive pupils present, EOMs intact bilaterally and conjunctivae normal CONJUNCTIVA: Yes conjunctivae normal PUPIL: Yes Equal, round and reactive pupils present Neck/C-Spine: COMMON NORMALS: full ROM and no JVD Lymph: LYMPHATIC: no lymphadenopathy noted Chest: OTHER: No signs of bruising or injury to the chest. Patient with reproducible, tenderness on palpation to the inferior sternum. Nontender along the cervical and thoracic vertebrae though there is tenderness-especially to the right paravertebral region around T4. Resp: COMMON NORMALS: normal respiratory effort, No retractions and No use of accessory muscles Cardio: COMMON NORMALS: no JVD, regular rate and regular rhythm RATE: regular rate RHYTHM: regular rhythm Neuro: COMMON NORMALS: patient oriented x3 SENSORIUM/ORIENTATION: Yes alert Psych: COMMON NORMALS: mental status grossly normal, Normal thought process present, cooperative and normal affect THOUGHT PROCESS: Normal thought process present Skin: COMMON NORMALS: no rashes or lesions noted and turgor normal GENERAL SKIN EXAM: no rashes or lesions noted and turgor normal Course Vital Signs: Vital signs: Vital Signs Temperature 99.6 F 09/19/22 16:06 Pulse Rate 75 09/19/22 18:12 Respiratory Rate 14 09/19/22 16:06 Blood Pressure 139/89 09/19/22 18:12 Pulse Oximetry 99 09/19/22 18:12 Oxygen Delivery Me thod Room Air 09/19/22 18:12 MDM - Back Pain/Injury Medical Decision Making Patient presents to the emergency department today with sudden onset severe back and chest pains. Given her extensive history we did do some labs and imaging/EKG to rule out other underlying causes before starting treatment for musculoskeletal pain. Patient's cardiac evaluation is unremarkable. Imaging reveals no concerns for widening of the aorta, bleeding into the chest, etc. Patient was treated with muscle relaxer and anti-inflammatory here in the emergency department. Patient still has episodic pain here in the emergency department but, does appear more comfortable on reevaluation. Discussed all the negative findings with the patient. We will attempt treatment with muscle relaxer and anti-inflammatory medications over the next several days to help with muscle spasming however, recommend a follow-up appointment with the primary care this week for general recheck. Went over strict return precautions. Patient verbalized understanding and agreement to treatment plan. Differential Diagnosis Likely thoracic back pain (Aortic aneurysm, costochondritis, muscle spasm) Labs 09/19/22 18:15 09/19/22 18:15 Radiology Impressions Chest X-Ray 09/19/22 17:39 IMPRESSION: No acute findings. Sternum X-Ray 09/19/22 17:39 IMPRESSION: No acute findings. Laboratory Results WBC 9.6 10^3/uL (4.0-10.0) 09/19/22 18:15 RBC 4.48 10^6/uL (4.1-5.3) 09/19/22 18:15 Hgb 14.3 g/dL (11.5-15.3) 09/19/22 18:15 Hct 42.7 % (37.0-47.0) 09/19/22 18:15 MCV 95.3 fl (81-99) 09/19/22 18:15 MCH 31.9 pg (28.0-34.0) 09/19/22 18:15 MCHC 33.5 g/dL (30.0-36.0) 09/19/22 18:15 RDW 11.7 % (12.1-15.1) L 09/19/22 18:15 Plt Count 212 10^3/cmm (130-400) 09/19/22 18:15 MPV 9.6 fL (7.4-10.4) 09/19/22 18:15 Neut % (Auto) 67.4 % 09/19/22 18:15 Lymph % (Auto) 22.0 % 09/19/22 18:15 [place] % (Auto) 7.0 % 09/19/22 18:15 Eos % (Auto) 2.6 % 09/19/22 18:15 Baso % (Auto) 0.7 % 09/19/22 18:15 Neut # (Auto) 6.49 10^3/uL (1.8-7.7) 09/19/22 18:15 Lymph # (Auto) 2.1 10^3/uL (0.8-4.8) 09/19/22 18:15 [place] # (Auto) 0.7 10^3/uL (0.2-0.9) 09/19/22 18:15 Eos # (Auto) 0.3 10^3/uL (0.0-0.8) 09/19/22 18:15 Baso # (Auto) 0.1 10^3/uL (0.0-0.1) 09/19/22 18:15 Nucleated RBC % (auto) 0 % 09/19/22 18:15 Nucleated RBCs # 0.0 /100WBC 09/19/22 18:15 Sodium 139 mmol/L (136-145) 09/19/22 18:15 Potassium 3.5 mmol/L (3.5-5.1) 09/19/22 18:15 Chloride 105 mmol/L (98-107) 09/19/22 18:15 Carbon Dioxide 21 mmol/L (22-29) L 09/19/22 18:15 Anion Gap 16.5 (5-19) 09/19/22 18:15 BUN 6 mg/dL (6-20) 09/19/22 18:15 Creatinine 0.6 mg/dL (0.5-0.9) 09/19/22 18:15 GFR Calculation 108.6 mL/min (90-130) 09/19/22 18:15 Glucose 89 mg/dL (65-115) 09/19/22 18:15 Calculated Osmolality 285 mOsm/kg (285-295) 09/19/22 18:15 Calcium 8.6 mg/dL (8.5-10.5) 09/19/22 18:15 Total Bilirubin 0.3 mg/dL (0.15-1.2) 09/19/22 18:15 AST 19 U/L (0-32) 09/19/22 18:15 ALT 20 U/L (0-33) 09/19/22 18:15 Alkaline Phosphatase 100 U/L (35-105) 09/19/22 18:15 Total Protein 6.5 g/dL (6.6-8.7) L 09/19/22 18:15 Albumin 4.1 g/dL (3.5-5.2) 09/19/22 18:15 Globulin 2.4 g/dL (1.3-4.6) 09/19/22 18:15 Discharge Plan Discharge Patient Disposition: Home Clinical Impression: Spasm of thoracic back muscle Prescriptions: New tizanidine 4 mg tablet 4 mg PO Q6H PRN (Reason: muscle spasticity) Qty: 20 0RF Rx Instructions: do not exceed 3 doses per 24 hrs diclofenac sodium 3 % gel 1 applic topical BID Qty: 100 0RF methylprednisolone 4 mg tablets,dose pack See Rx Instructions PO .COMPLEX Qty: 21 0RF Rx Instructions: orally per package directions No Action amitriptyline 25 mg tablet 75 mg PO DAILY Galzin 25 mg (zinc) capsule 25 mg PO DAILY mecobalamin (vitamin B12) 5,000 mcg tablet,disintegrating 5,000 mcg PO DAILY All Day Allergy (cetirizine) 10 mg capsule 10 mg PO DAILY aspirin 325 mg tablet 325 mg PO DAILY biotin 1,000 mcg tablet,chewable 1,000 mcg PO DAILY ferrous sulfate 325 mg (65 mg iron) tablet 325 mg PO DAILY lysine [L-Lysine] 500 mg tablet 500 mg PO DAILY cholecalciferol (vitamin D3) 5,000 unit tablet,disintegrating 5,000 unit PO DAILY promethazine 25 mg tablet 25 mg PO TID PRN (Reason: nausea and vomiting) 30 Days Qty: 90 0RF mupirocin 2 % ointment 1 applic topical BID Qty: 15 2RF valacyclovir 1 gram tablet See Rx Instructions .ROUTE .COMPLEX Qty: 21 0RF Dose Instruction: TAKE ONE TABLET BY MOUTH THREE TIMES DAILY FOR 7 DAYS Rx Instructions: TAKE ONE TABLET BY MOUTH THREE TIMES DAILY FOR 7 DAYS albuterol sulfate [Ventolin HFA] 90 mcg/actuation HFA aerosol inhaler 2 puff inhalation 6XD PRN (Reason: shortness of breath or wheezing) Qty: 8.5 3RF budesonide-formoterol [Symbicort] 160-4.5 mcg/actuation HFA aerosol inhaler 2 puff inhalation Q12H Qty: 10.2 6RF pantoprazole 40 mg tablet,delayed release (DR/EC) 40 mg PO DAILY Qty: 30 2RF levothyroxine 25 mcg tablet See Rx Instructions .ROUTE .COMPLEX Qty: 90 3RF Dose Instruction: TAKE ONE TABLET BY MOUTH EVERY MORNING ON an EMPTY stomach Rx Instructions: TAKE ONE TABLET BY MOUTH EVERY MORNING ON an EMPTY stomach hydrocodone-acetaminophen 5-325 mg tablet 1 tab PO Q6H PRN (Reason: pain) 7 Days Qty: 28 0RF cyclobenzaprine 10 mg tablet See Rx Instructions PO TID PRN (Reason: muscle spasm) Qty: 30 0RF Rx Instructions: 1/2 to 1 tablet orally three times daily PRN; sertraline 50 mg tablet See Rx Instructions .ROUTE .COMPLEX Qty: 30 0RF Dose Instruction: TAKE ONE TABLET BY MOUTH DAILY Rx Instructions: TAKE ONE TABLET BY MOUTH DAILY atorvastatin 80 mg tablet See Rx Instructions .ROUTE .COMPLEX Qty: 90 0RF Dose Instruction: TAKE ONE TABLET BY MOUTH EVERY DAY Rx Instructions: TAKE ONE TABLET BY MOUTH EVERY DAY Tylenol 325 mg Tablet 325 mg PO QID PRN (Reason: Pain) ProAir HFA 90 mcg/actuation HFA aerosol inhaler 1 - 2 puff INHALATION Q4H PRN (Reason: Shortness Of Breath) Augmentin 500-125 mg tablet 1 tab PO BID Qty: 10 0RF Discharge Orders: Discharge ED (Routine); Ordered 09/19/22 Ordered By: Kina Edwards Referrals: Graciela Raya FNP [Primary Care Provider] - Discharge Diet: Usual diet Discharge Activity: Increase activity as tolerated Patient Instructions: Muscle Spasm (ED) Activity Restrictions/Additional Instructions: Based on the description of pain, sudden onset of pain, and location of pain, we did evaluate several things here in the emergency department to make sure you showed no signs of cardiac involvement, aortic aneurysm, etc. Labs, EKG, and x-ray are all reassuring that cardiac structures and underlying tissues are all within normal limits at this time. For that reason, we can begin treatment for musculoskeletal concerns including thoracic back spasming. I provided you several different medications to help with both muscle inflammation and spasm for the next few days. You can still apply heating pads to the area for 15 to 20 minutes, multiple times throughout the day and, do recommend following up with your primary care doctor later this week for general recheck. However, if you develop any one-sided chest pain with radiation into your arm, one-sided facial droop or one-sided body weakness, fevers, or vomiting you need to be seen and reevaluated again. Coding Level of Care Code ED Billiard Table Repairer for Fede Wilson
== END 2022-09-19 20:07 | disposition home or self-care (01) ==
PROVIDERS: Emergency Provider Physician Assistant; PCP Nurse Practitioner Family
DX: M62.830 Muscle spasm of back (principal); R07.89 Other chest pain
CPT/HCPCS: 71046; 71120; 80053; 85025; 93005; 96374; 96375; 99285; J1885; J2360

== ENCOUNTER → 2022-09-30 16:03 | Outpatient (BNVA) | payer MEDICARE, MEDICAID, SELFPAY | PROVIDERS: PCP Nurse Practitioner Family; Visit Provider Surgery | DX: K21.9 Gastro-esophageal reflux disease without esophagitis (principal); K92.1 Melena; R13.10 Dysphagia, unspecified | CPT/HCPCS: 99203 ==

== ENCOUNTER → 2022-10-13 13:14 | Outpatient (BNVA) | payer MEDICARE, MEDICAID, SELFPAY | PROVIDERS: PCP Nurse Practitioner Family; Visit Provider Anesthesiology Pain Medicine | DX: M47.816 Spondylosis without myelopathy or radiculopathy, lumbar region (principal); M54.16 Radiculopathy, lumbar region | CPT/HCPCS: 64635; 64636; 93228; 93288; J1030 ==

== ENCOUNTER 2022-10-28 08:57 | Day surgery (SDC) | payer MEDICARE, MEDICAID, SELFPAY ==
[2022-10-28] MEDS: sodium chloride 0.9% 1,000 ML 30 ML IV (09:17)
[2022-10-28 09:18] VITALS: BP 126/79; PULSE 78; RESP 18; TEMP 36.8; O2SAT 99
--- NOTE | 2022-10-28 09:38 | ANES.PREANE2 ---
Pre-Anesthetic Assessment Height/Weight: Height 1.63 m Weight 79.379 kg Temp Pulse Resp BP Pulse Ox O2 Del Method 98.3 F 78 18 126/79 99 Room Air 10/28/22 09:18 10/28/22 09:18 10/28/22 09:18 10/28/22 09:18 10/28/22 09:18 10/28/22 09:18 Operation Date: 10/28/22 10:00 Proposed Procedures p [id number] egd w/balloon dial K21.9(Not Applicable) - Vinicio Bustamante DO Familial anesthetic complications: none Was Beta Elyssa taken within 24 hours: N/A Was Clonidine taken within 24 hours: N/A Last intake: Intake Last Liquid Date 10/27/22 Last Liquid Time 23:30 Last Solid Date 10/27/22 Last Solid Time 23:30 Social No alcohol and No tobacco Exam alert, oriented x 3, clear to auscultation bilaterally and regular rate & rhythm Airway Mallampati: Class I Dentition: false CV/HEM Arrythmia (pacer) GI Gastroesophageal Reflux Disease Metabolic Diabetes Mellitus and Thyroid Disease Anesthetic Plan ASA status: 3 Anesthesia: MAC Risk of > 500 ml blood loss (7ml/kg in children): No Medications/Allergies Home Medications Medication Instructions Recorded Confirmed Last Taken Type biotin 1,000 mcg chewable tablet 1,000 mcg PO DAILY 06/08/19 10/26/22 10/27/22 History cetirizine 10 mg capsule (All Day 10 mg PO DAILY 06/08/19 10/26/22 10/27/22 History Allergy (cetirizine)) cholecalciferol (vitamin D3) 125 5,000 unit PO DAILY 06/08/19 10/26/22 10/27/22 History mcg (5,000 unit) disintegrating tablet ferrous sulfate 325 mg (65 mg 325 mg PO DAILY 06/08/19 10/26/22 10/27/22 History iron) tablet lysine 500 mg tablet (L-Lysine) 500 mg PO DAILY 06/08/19 10/26/22 10/27/22 History mecobalamin (vitamin B12) 5,000 5,000 mcg PO DAILY 06/08/19 10/26/22 10/27/22 History mcg disintegrating tablet acetaminophen 325 mg tablet 325 mg PO QID PRN Pain 08/14/19 10/28/22 08/13/19 History (Tylenol) albuterol sulfate 90 mcg/actuation 1 - 2 puff inhalation Q4H PRN 08/14/19 10/28/22 08/14/19 History aerosol inhaler (ProAir HFA) Shortness Of Breath amitriptyline 25 mg tablet 75 mg PO DAILY 04/21/20 10/26/22 10/27/22 History zinc acetate 25 mg (zinc) capsule 25 mg PO DAILY 01/12/21 10/26/22 10/27/22 History (Galzin) promethazine 25 mg tablet 25 mg PO TID PRN nausea and 01/28/21 10/28/22 Unknown Rx vomiting 30 days #90 tabs albuterol sulfate 90 mcg/actuation 2 puff inhalation 6XD PRN 04/28/22 10/28/22 Unknown Rx aerosol inhaler (Ventolin HFA) shortness of breath or wheezing #8.5 grams budesonide-formoterol HFA 160 2 puff inhalation Q12H #10.2 grams 04/28/22 10/28/22 Unknown Rx mcg-4.5 mcg/actuation aerosol inhaler (Symbicort) pantoprazole 40 mg tablet,delayed 40 mg PO BID 6 weeks #84 tabs 09/30/22 10/26/22 10/26/22 Rx release (Protonix) aspirin 81 mg tablet 81 mg PO DAILY 10/26/22 10/26/22 10/26/22 History atorvastatin 80 mg tablet 80 mg PO DAILY 10/26/22 10/26/22 10/27/22 History levothyroxine 25 mcg tablet 25 mcg PO DAILY 10/26/22 10/28/22 10/26/22 History rimegepant 75 mg disintegrating 75 mg PO PRN PRN Nausea 10/26/22 10/28/22 Unknown History tablet (Nurtec ODT) sertraline 50 mg tablet 50 mg PO DAILY 10/26/22 10/26/22 10/27/22 History valacyclovir 1 gram tablet 1 mg PO DAILY 10/26/22 10/28/22 Unknown History Allergies Allergy/AdvReac Type Severity Reaction Status Date / Time gabapentin Allergy Unknown Verified 10/28/22 09:10 lamotrigine [From Lamictal] Allergy Unknown Verified 10/28/22 09:10 meperidine [From Demerol] Allergy ADR-Halluci Verified 10/28/22 09:10 nating morphine Allergy ADR-Halluci Verified 10/28/22 09:10 nating tomato Allergy ALGY-Bliste Verified 10/28/22 09:10 r topiramate [From Topamax] Allergy ADR-Faintin Verified 10/28/22 09:10 g Current Medications Generic Name Dose Route Start Last Admin Trade Name Freq PRN Reason Stop Dose Admin Sodium Chloride 1,000 mls @ 30 mls/hr 10/28/22 09:00 10/28/22 09:17 Sodium Chloride 0.9% IV 10/29/22 08:59 30 mls/hr .Q24H ALEXA Administration PFSH Anesthesia Medical History Adjustment disorder, unspecified Dyslipidemia H/O coronary angiogram Major depressive disorder, recurrent severe without psychotic features Old cerebrovascular accident (CVA) without late effect Pacemaker Post-traumatic stress disorder, chronic Post-traumatic stress disorder, chronic S/P transesophageal echocardiogram (LUCIA) SOB (shortness of breath) Tachycardia Surgical History H/O foot surgery H/O gastric bypass History of cholecystectomy History of hysterectomy History of loop recorder Hx of tonsillectomy S/P spinal surgery Family History Other Diabetes Stroke Social History Smoking and tobacco status: never smoked Second hand smoke exposure: Yes Smoking risk assessment/counseling performed?: Yes Tobacco counseling given: counseling >3 minutes Alcohol intake: current Alcohol intake frequency: holidays/special occasions only Counseling given: No Substance/Drug Use: never Counseling given: No Lives independently: Yes Household members: significant other Marital status: Current occupational status: disabled Do you think of yourself as: Lesbian/Malik/Homosexual Current gender identity: Female Data Anesthesia Cardiac Studies: No Data to Display
--- NOTE | 2022-10-28 10:43 | W.PM.OPSUD ---
Surgery/Procedure H&P Update DATE OF PROCEDURE: October 28, 2022 DATE H&P PERFORMED: 09/30/22 H&P UPDATE INFORMATION: I have reviewed H&P completed within last 30 days, I have examined patient prior to procedure and No changes to prior documentation PLANNED PROCEDURE: Operation Date: 10/28/22 10:00 Proposed Procedures p [id number] egd w/balloon dial K21.9(Not Applicable) - Vinicio Bustamante DO
[2022-10-28 11:08] VITALS: BP 119/82; PULSE 90; RESP 18; TEMP 36.7; O2SAT 98
[2022-10-28 11:29] VITALS: BP 130/98; PULSE 89; RESP 16; O2SAT 96
--- NOTE | 2022-10-28 11:31 | ANE.PACU2 ---
Inpatient post-anesthesia follow up: Airway intact: Yes Vital signs: Temperature 98.0 F Pulse Rate 89 Respiratory Rate 16 Blood Pressure 130/98 Pulse Oximetry 96 Oxygen Delivery Me thod Room Air Oxygen Flow Rate Fraction of Inspir ed Oxygen Hydration adequate: Yes Nausea and vomiting: No Pain level: 1 Mental status: Baseline
== END 2022-10-28 11:34 | disposition home or self-care (01) ==
PROVIDERS: PCP Nurse Practitioner Family; Visit Provider Surgery
DX: K21.9 Gastro-esophageal reflux disease without esophagitis (principal); K29.50 Unspecified chronic gastritis without bleeding; E11.9 Type 2 diabetes mellitus without complications; E03.9 Hypothyroidism, unspecified; Z79.82 Long term (current) use of aspirin; E78.5 Hyperlipidemia, unspecified
CPT/HCPCS: 43239; 88305; J2704; J7030

== ENCOUNTER → 2022-11-01 10:50 | Outpatient (BNVA) | payer MEDICARE, MEDICAID, SELFPAY | PROVIDERS: PCP Nurse Practitioner Family; Visit Provider Anesthesiology Pain Medicine | DX: M54.16 Radiculopathy, lumbar region (principal); M51.36 Other intervertebral disc degeneration, lumbar region; M47.816 Spondylosis without myelopathy or radiculopathy, lumbar region | CPT/HCPCS: 99214 ==

== ENCOUNTER → 2022-12-01 14:07 | Outpatient (BNVA) | payer MEDICARE, MEDICAID, SELFPAY | PROVIDERS: PCP Nurse Practitioner Family; Visit Provider Anesthesiology Pain Medicine | DX: M47.816 Spondylosis without myelopathy or radiculopathy, lumbar region (principal) | CPT/HCPCS: 64635; 64636; J1030 ==

== ENCOUNTER → 2022-12-15 09:22 | Outpatient (BNVA) | payer MEDICARE, MEDICAID, SELFPAY | PROVIDERS: PCP Nurse Practitioner Family; Visit Provider Anesthesiology Pain Medicine | DX: M54.16 Radiculopathy, lumbar region (principal); M51.36 Other intervertebral disc degeneration, lumbar region; M47.816 Spondylosis without myelopathy or radiculopathy, lumbar region | CPT/HCPCS: 99214 ==

== ENCOUNTER → 2023-03-17 09:55 | Outpatient (BNVA) | payer MEDICARE, MEDICAID, SELFPAY | PROVIDERS: PCP Nurse Practitioner Family; Visit Provider Anesthesiology Pain Medicine | DX: M54.16 Radiculopathy, lumbar region (principal); M51.36 Other intervertebral disc degeneration, lumbar region; M47.816 Spondylosis without myelopathy or radiculopathy, lumbar region; M48.061 Spinal stenosis, lumbar region without neurogenic claudication | CPT/HCPCS: 99214 ==

== ENCOUNTER 2023-03-18 09:14 | Outpatient (CLI) | payer MEDICARE, MEDICAID, SELFPAY ==
--- NOTE | 2023-03-18 09:25 | XR_ITS ---
WS: [id number] Thoracic spine, 3 views, 03/18/2023 Clinical Data: M54.6 - Pain in thoracic spine Comparison: None. Findings: No compression fractures are seen. The disc heights are normal. There is a slight levoscoliosis of the lower thoracic spine. The paravertebral regions are normal. Th ere is a 2-lead cardiac pacemaker in good position. There are surgical clips in the left upper quadra nt and right upper quadrant. Impression: Negative thoracic spine.
== END 2023-03-18 09:15 | disposition home or self-care (01) ==
LOC: RAD 09:15
PROVIDERS: PCP Nurse Practitioner Family; Visit Provider Anesthesiology Pain Medicine
DX: M54.6 Pain in thoracic spine (principal); M25.521 Pain in right elbow; M77.11 Lateral epicondylitis, right elbow
CPT/HCPCS: 72072; 73080; 99203

== ENCOUNTER → 2023-04-20 11:05 | Outpatient (BNVA) | payer MEDICARE, MEDICAID, SELFPAY | PROVIDERS: PCP Nurse Practitioner Family; Visit Provider Anesthesiology Pain Medicine | DX: M54.16 Radiculopathy, lumbar region; M51.36 Other intervertebral disc degeneration, lumbar region; M47.816 Spondylosis without myelopathy or radiculopathy, lumbar region | CPT/HCPCS: 99214 ==

== ENCOUNTER → 2023-06-02 10:40 | Outpatient (BNVA) | payer MEDICARE, MEDICAID, SELFPAY | PROVIDERS: PCP Nurse Practitioner Family; Referring Provider Nurse Practitioner Family; Visit Provider Student in an Organized Health Care Education/Training Program | DX: G56.03 Carpal tunnel syndrome, bilateral upper limbs (principal) | CPT/HCPCS: 73130; 99214 ==

== ENCOUNTER 2023-07-06 14:45 | Emergency (ER) | payer MEDICARE, MEDICAID, SELFPAY ==
[2023-07-06 14:52] VITALS: BP 147/85; PULSE 80; RESP 16; TEMP 36.8; O2SAT 99
--- NOTE | 2023-07-06 15:41 | CTR_ITS ---
PROCEDURE INFORMATION: Exam: CT Abdomen And Pelvis With Contrast Exam date and time: 07/06/2023 4:30 PM Age: 43 years old Clinical indication: Abdominal pain; Localized; Left lower quadrant (llq); Prior surgery; Surgery date: 6+ months; Surgery type: Hyst, gastric bypass, fan; Additional info: Llq pain TECHNIQUE: Imaging protocol: Computed tomography of the abdomen and pelvis with contrast. Radiation optimization: All CT scans at this facility use at least one of these dose optimization techniques: automated exposure control; mA and/or kV adjustment per patient size (includes targeted exams where dose is matched to clinical indication); or iterative reconstruction. Contrast material: OMNI 350; Contrast volume: 100 ml; Contrast route: INTRAVENOUS (IV); COMPARISON: CT abdomen pelvis wo con [id number] 12/04/2017 3:01 AM RADIATION DOSE METRICS: Total DLP (mGy-cm): 657.02 FINDINGS: Lungs: Lung bases are clear. No pleural effusion. Liver: Normal. No mass. Gallbladder and bile ducts: The gallbladder has been resected. Pancreas: Normal. No ductal dilation. Spleen: Normal. No splenomegaly. Adrenal glands: Normal. No mass. Kidneys and ureters: Normal. No hydronephrosis. Stomach and bowel: There is evidence of previous gastric surgery. Appendix: No evidence of appendicitis. Intraperitoneal space: Unremarkable. No free air. No significant fluid collection. Vasculature: Unremarkable. No abdominal aortic aneurysm. Lymph nodes: Unremarkable. No enlarged lymph nodes. Urinary bladder: Unremarkable as visualized. Reproductive: There is a 3.9 cm hemorrhagic cyst involving the left ovary. The uterus has been resected. Bones/joints: Unremarkable. No acute fracture. Soft tissues: Unremarkable. CT/CT abdomen pelvis w con* [id number] IMPRESSION: 3.9 cm hemorrhagic cyst of the left ovary. This has developed since 2018
--- NOTE | 2023-07-06 15:42 | ED_ITS ---
HPI - Abdominal Pain 2 General: Chief Complaint: Abdominal Pain Stated Complaint: abd pain, n/v Time Seen by Provider: 07/06/23 15:37 Source: patient Mode of arrival: ambulatory Limitations: no limitations History of Present Illness: 43-year-old female states been having le ft lower quadrant pain throughout the day. States it comes in waves her pain is currently a 4 out of 10. She denies any diarrhea denies any vomiting she denies any fevers. She denies any worse improving factors. Denies any radiation of her pain. She has not had any dysuria. Associated Symptoms: Denies chills, diarrhea, fever(s), nausea and vomiting Review of Systems 2 Const: Denies: fever(s), chills, body aches or change in appetite ENMT: Denies: throat pain or dental pain Card: Denies: chest pain Resp: Denies: dyspnea GI: Reports: abdominal pain; Denies: nausea, vomiting or diarrhea Musc: Denies: neck pain or back pain Skin/Breast: Denies: rash Neuro: Denies: headache(s) PFSH ED 2 PFSH: Medical History Pacemaker H/O coronary angiogram S/P transesophageal echocardiogram (LUCIA) Old cerebrovascular accident (CVA) without late effect SOB (shortness of breath) Tachycardia Post-traumatic stress disorder, chronic Major depressive disorder, recurrent severe without psychotic features Dyslipidemia Adjustment disorder, unspecified Post-traumatic stress disorder, chronic Surgical History H/O gastric bypass History of cholecystectomy Hx of tonsillectomy H/O foot surgery History of hysterectomy S/P spinal surgery History of loop recorder Family History Other Diabetes Stroke Social History Smoking and tobacco/nicotine status: never used tobacco/nicotine Second hand smoke exposure: Yes Alcohol intake: current Alcohol intake frequency: holidays/special occasions only Substance/Drug Use: never Lives independently: Yes Household members: significant other Marital status: Current occupational status: disabled Do you think of yourself as: Lesbian/Malik/Homosexual Current gender identity: Female Physical Exam 2 Const: COMMON NORMALS: no acute distress, patient oriented x3 and healthy appearing HENMT: COMMON NORMALS: normocephalic and atraumatic HEAD & SCALP: n ormocephalic and atraumatic Neck/C-Spine: COMMON NORMALS: full ROM and supple Chest: COMMONS NORMALS: normal inspection of the chest Resp: COMMON NORMALS: normal respiratory effort Cardio: COMMON NORMALS: regular rate, regular rhythm and No murmurs present (Cardio) RATE: regular rate RHYTHM: regular rhythm GI: COMMON NORMALS: Normal to inspection, nondistended, normoactive bowel sounds present, Soft to palpation and no masses PALPATION: Yes Soft to palpation and Yes Tenderness to palpation present (GI) Details: LLQ Extremity: COMMON NORMALS: normal to inspection and full ROM Neuro: COMMON NORMALS: patient oriented x3, moves all extremities and no focal motor deficits Psych: COMMON NORMALS: mental status grossly normal, Normal thought process present and cooperative THOUGHT PROCESS: Normal thought process present Skin: COMMON NORMALS: no rashes or lesions noted and no wounds GENERAL SKIN EXAM: no rashes or lesions noted Course 2 Vital Signs: Vital signs: Vital Signs Temperature 98.3 F 07/06/23 14:52 Pulse Rate 80 07/06/23 14:52 Respiratory Rate 18 07/06/23 16:24 Blood Pressure 147/85 07/06/23 14:52 Pulse Oximetry 100 07/06/23 16:24 Oxygen Delivery Me thod Room Air 07/06/23 14:52 MDM - Abdominal Pain Medical Decision Making Patient presents under ovarian cyst she has no signs of torsion her pain is much improved blood work is normal. Will prescribe her pain meds she is to follow-up with OB return if worsening. Medical Records I reviewed the patient's medical records. Lab Data I reviewed the patient's lab results. 07/06/23 15:17 07/06/23 15:17 Labs/Radiology: Radiology Impressions Abdomen/Pelvis CT 07/06/23 15:41 IMPRESSION: 3.9 cm hemorrhagic cyst of the left ovary. This has developed since 2018 Laboratory Results WBC 8.07 10^3/uL (3.29-11.43) 07/06/23 15:17 RBC 4.12 10^6/uL (3.85-5.65) 07/06/23 15:17 Hgb 13.60 g/dL (11.27-16.99) 07/06/23 15:17 Hct 39.1 % (36-47) 07/06/23 15:17 MCV 94.9 fl (85-98) 07/06/23 15:17 MCH 33.0 pg (27-33) 07/06/23 15:17 MCHC 34.8 g/dL (30-55) 07/06/23 15:17 RDW 11.9 % (12.1-15.1) L 07/06/23 15:17 Plt Count 215 10^3/cmm (157-399) 07/06/23 15:17 MPV 9.6 fL (7.4-10.4) 07/06/23 15:17 Neut % (Auto) 68.5 % 07/06/23 15:17 Lymph % (Auto) 24.0 % 07/06/23 15:17 [place] % (Auto) 5.2 % 07/06/23 15:17 Eos % (Auto) 1.4 % 07/06/23 15:17 Baso % (Auto) 0.7 % 07/06/23 15:17 Neut # (Auto) 5.52 10^3/uL (1.8-7.7) 07/06/23 15:17 Lymph # (Auto) 1.9 10^3/uL (0.8-4.8) 07/06/23 15:17 [place] # (Auto) 0.4 10^3/uL (0.2-0.9) 07/06/23 15:17 Eos # (Auto) 0.1 10^3/uL (0.0-0.8) 07/06/23 15:17 Baso # (Auto) 0.1 10^3/uL (0.0-0.1) 07/06/23 15:17 Nucleated RBC % (auto) 0 % 07/06/23 15:17 Nucleated RBCs # 0.0 /100WBC 07/06/23 15:17 Sodium 137 mmol/L (136-145) 07/06/23 15:17 Potassium 3.5 mmol/L (3.5-5.1) 07/06/23 15:17 Chloride 103 mmol/L (98-107) 07/06/23 15:17 Carbon Dioxide 26 mmol/L (22-29) 07/06/23 15:17 Anion Gap 11.5 (5-19) 07/06/23 15:17 BUN 11 mg/dL (6-20) 07/06/23 15:17 Creatinine 0.5 mg/dL (0.5-0.9) 07/06/23 15:17 GFR Calculation 133.4 mL/min (90-130) H 07/06/23 15:17 Glucose 98 mg/dL (65-115) 07/06/23 15:17 Calculated Osmolality 283 mOsm/kg (285-295) L 07/06/23 15:17 Calcium 9.0 mg/dL (8.5-10.5) 07/06/23 15:17 Total Bilirubin 0.3 mg/dL (0.15-1.2) 07/06/23 15:17 AST 25 U/L (0-32) 07/06/23 15:17 ALT 33 U/L (0-33) 07/06/23 15:17 Alkaline Phosphatase 88 U/L (35-105) 07/06/23 15:17 Total Protein 6.6 g/dL (6.6-8.7) 07/06/23 15:17 Albumin 4.3 g/dL (3.5-5.2) 07/06/23 15:17 Globulin 2.3 g/dL (1.3-4.6) 07/06/23 15:17 Lipase 36 U/L (13-60) 07/06/23 15:17 HCG, Qual Negative (Negative) 07/06/23 15:17 Urine Color Yellow (Yellow) 07/06/23 15:15 Urine Appearance Clear (CLEAR) 07/06/23 15:15 Urine pH 6 (5-7) 07/06/23 15:15 Ur Specific [place] 1.015 (1.005-1.030) 07/06/23 15:15 Urine Protein Neg (Negative) 07/06/23 15:15 Urine Glucose (UA) Norm (Normal) 07/06/23 15:15 Urine Ketones Negative (Negative) 07/06/23 15:15 Urine Blood Trace (Negative) H 07/06/23 15:15 Urine Nitrate Negative (Negative) 07/06/23 15:15 Urine Bilirubin Neg (Negative) 07/06/23 15:15 Urine Urobilinogen Norm mg/dL (Negative) 07/06/23 15:15 Ur Leukocyte Esterase Negative (Negative) 07/06/23 15:15 Urine RBC 0-4 /hpf (0-2) H 07/06/23 15:15 Urine WBC None /hpf (0-5) 07/06/23 15:15 Ur Squamous Epith Cells 0-4 /hpf (0-5) H 07/06/23 15:15 Amorphous Sediment Not Reportable 07/06/23 15:15 Urine Bacteria Trace /hpf (NONE) 07/06/23 15:15 All radiology interpretation(s) finalized by discharge Discharge Plan Discharge Patient Disposition: Home Clinical Impression: Abdominal pain, Ovarian cyst Condition: Stable Prescriptions: New hydrocodone-acetaminophen 5-325 mg tablet 1 tab PO Q6H PRN (Reason: pain) Qty: 14 0RF ondansetron 4 mg tablet,disintegrating 4 mg PO Q6H PRN (Reason: nausea and vomiting) Qty: 14 0RF No Action amitriptyline 25 mg tablet 75 mg PO DAILY Galzin 25 mg (zinc) capsule 25 mg PO DAILY mecobalamin (vitamin B12) 5,000 mcg tablet,disintegrating 5,000 mcg PO DAILY All Day Allergy (cetirizine) 10 mg capsule 10 mg PO DAILY biotin 1,000 mcg tablet,chewable 1,000 mcg PO DAILY ferrous sulfate 325 mg (65 mg iron) tablet 325 mg PO DAILY lysine [L-Lysine] 500 mg tablet 500 mg PO DAILY cholecalciferol (vitamin D3) 5,000 unit tablet,disintegrating 5,000 unit PO DAILY promethazine 25 mg tablet 25 mg PO TID PRN (Reason: nausea and vomiting) 30 Days Qty: 90 0RF (DME) tennis elbow strap See Rx Instructions .Route .MEDSUPPLY Qty: 1 0RF Rx Instructions: As directed albuterol sulfate [Ventolin HFA] 90 mcg/actuation HFA aerosol inhaler 2 puff inhalation 6XD PRN (Reason: shortness of breath or wheezing) Qty: 8.5 3RF valacyclovir 1 gram tablet 1,000 mg PO DAILY Qty: 21 0RF Rx Instructions: TAKE ONE TABLET BY MOUTH THREE TIMES DAILY FOR 7 DAYS diclofenac sodium 1 % gel See Rx Instructions .ROUTE .COMPLEX Qty: 100 0RF Dose Instruction: APPLY 4 grams topically FOUR TIMES DAILY; APPLY TO single knee, ankle, foot, FOR foot includes sole/toes/top of food Rx Instructions: APPLY 4 grams topically FOUR TIMES DAILY; APPLY TO single knee, ankle, foot, FOR foot includes sole/toes/top of food tizanidine 4 mg tablet 4 mg PO BID PRN (Reason: muscle spasticity) Qty: 60 0RF atorvastatin 80 mg tablet See Rx Instructions .ROUTE .COMPLEX Qty: 14 0RF Dose Instruction: TAKE ONE TABLET BY MOUTH EVERY DAY Rx Instructions: TAKE ONE TABLET BY MOUTH EVERY DAY levothyroxine 25 mcg tablet See Rx Instructions .ROUTE .COMPLEX Qty: 14 0RF Dose Instruction: TAKE ONE TABLET BY MOUTH EVERY MORNING ON an EMPTY stomach Rx Instructions: TAKE ONE TABLET BY MOUTH EVERY MORNING ON an EMPTY stomach sertraline 50 mg tablet See Rx Instructions .ROUTE .COMPLEX Qty: 14 0RF Dose Instruction: TAKE ONE TABLET BY MOUTH DAILY Rx Instructions: TAKE ONE TABLET BY MOUTH DAILY pantoprazole 40 mg tablet,delayed release (DR/EC) See Rx Instructions .ROUTE .COMPLEX Qty: 28 0RF Dose Instruction: TAKE ONE TABLET BY MOUTH TWICE DAILY Rx Instructions: TAKE ONE TABLET BY MOUTH TWICE DAILY acetaminophen [Tylenol] 325 mg Tablet 325 mg PO QID PRN (Reason: Pain) albuterol sulfate [ProAir HFA] 90 mcg/actuation HFA aerosol inhaler 1 - 2 puff INHALATION Q4H PRN (Reason: Shortness Of Breath) aspirin 81 mg Tablet 81 mg PO DAILY Nurtec ODT 75 mg Tablet,Disintegrating 75 mg PO PRN PRN (Reason: Nausea) Discharge Orders: Discharge ED (Routine); Ordered 07/06/23 Ordered By: Edilma Jackson Referrals: Conrado Gr MD [Physician] - 1-3 days Graciela Raya FNP [Primary Care Provider] - Discharge Diet: Advance as tolerated Discharge Activity: Resume usual activity Patient Instructions: Ovarian Cyst (ED), Abdominal Pain (ED), Opioid Safety Coding Level of Care Code ED Paradichlorobenzene Machine Operator for Fede Wilson
[2023-07-06 15:49] LABS: Basophils # 0.1 10^3/uL (0.0-0.1); Basophils % 0.7 %; Eosinophils # 0.1 10^3/uL (0.0-0.8); Eosinophils % 1.4 %; Hematocrit 39.1 % (36-47); Lymphocytes # 1.9 10^3/uL (0.8-4.8); Mean Corpuscular HGB Conc 34.8 g/dL (30-55); Mean Corpuscular Volume 94.9 fl (85-98); Mean Platelet Volume 9.6 fL (7.4-10.4); Monocytes # 0.4 10^3/uL (0.2-0.9); Monocytes % 5.2 %; Neutrophils # 5.52 10^3/uL (1.8-7.7); Neutrophils % 68.5 %; Nucleated Red Blood Cells % 0 %; Platelet Count 215 10^3/cmm (157-399); Red Blood Count 4.12 10^6/uL (3.85-5.65); Red Cell Distribution Width 11.9 % (12.1-15.1); White Blood Count 8.07 10^3/uL (3.29-11.43)
[2023-07-06 16:00] VITALS: BP 142/91; PULSE 79; RESP 16; O2SAT 97
[2023-07-06 16:13] LABS: Alanine Aminotransferase 33 U/L (0-33); Albumin Level 4.3 g/dL (3.5-5.2); Alkaline Phosphatase 88 U/L (35-105); Anion Gap 11.5 (5-19); Aspartate Amino Transferase 25 U/L (0-32); Blood Urea Nitrogen 11 mg/dL (6-20); Carbon Dioxide 26 mmol/L (22-29); Chloride 103 mmol/L (98-107); Globulin 2.3 g/dL (1.3-4.6); Glomerular Filtration Rate 133.4 mL/min (90-130); Glucose 98 mg/dL (65-115); Lipase 36 U/L (13-60); Osmolality Calculated 283 mOsm/kg (285-295); Potassium 3.5 mmol/L (3.5-5.1); Sodium 137 mmol/L (136-145); Total Bilirubin 0.3 mg/dL (0.15-1.2); Total Protein 6.6 g/dL (6.6-8.7)
[2023-07-06 16:16] LABS: HCG, Serum Qual Negative (Negative)
[2023-07-06] MEDS: sodium chloride 0.9% 1,000 ML 999 ML IV (16:21)
[2023-07-06] MEDS: ondansetron 2 mg/ML SDV 2 mL 4 MG IVP (16:22)
[2023-07-06 16:23] LABS: Add Urine Culture? No; Add Urine Microscopic? YES; Bacteria Urine TRACE /hpf; Bilirubin Urine Neg (Negative); Blood Urine Trace (Negative); Glucose Urine UA Norm (Normal); Ketones Urine Negative (Negative); Leukocyte Esterase Urine Negative (Negative); Nitrate Urine Negative (Negative); Protein Urine Neg (Negative); RBC Urine 0-4 /hpf (0-2); Specific Gravity, Urine 1.015 (1.005-1.030); Squamous Epithelial Cell Urine 0-4 /hpf (0-5); Urine Appearance Clear (CLEAR); Urine Color Yellow (Yellow); Urobilinogen Urine Norm (Negative); pH Urine 6 (5-7)
[2023-07-06 16:24] VITALS: RESP 18; O2SAT 100
[2023-07-06] MEDS: HYDROmorphone 1 mg/mL INJ 1 mL 0.5 MG IVP (16:24)
[2023-07-06] MEDS: iohexol 350 mg/mL 500 mL Btl (per mL) IV (16:30)
[2023-07-06 17:32] VITALS: BP 142/91; PULSE 79; O2SAT 97
--- NOTE | 2023-07-06 17:33 | DCPLANNER ---
Message sent to OBGYN for follow up
== END 2023-07-06 17:33 | disposition home or self-care (01) ==
PROVIDERS: Emergency Provider Emergency Medicine; PCP Nurse Practitioner Family
DX: R10.31 Right lower quadrant pain (principal); N83.202 Unspecified ovarian cyst, left side; Z79.82 Long term (current) use of aspirin; Z95.0 Presence of cardiac pacemaker; Z86.73 Personal history of transient ischemic attack (TIA), and cerebral infarction without residual deficits; E78.5 Hyperlipidemia, unspecified; Z77.22 Contact with and (suspected) exposure to environmental tobacco smoke (acute) (chronic)
CPT/HCPCS: 36415; 74177; 80053; 81001; 83690; 84703; 85025; 96374; 96375; 99285; J1170; J2405; J7030; Q9967

== ENCOUNTER 2023-07-20 05:38 | Day surgery (SDC) | payer MEDICARE, MEDICAID, SELFPAY ==
--- NOTE | 2023-07-20 06:13 | ANES.PREANE2 ---
Pre-Anesthetic Assessment Height/Weight: Height 1.63 m Operation Date: 07/20/23 07:00 Proposed Procedures p Carpal Tunnel Release(Left) - Stef Vargas, DO CV/HEM Pacemaker - AAI GI Gastroesophageal Reflux Disease gastirc bypass Metabolic Diabetes Mellitus and Thyroid Disease Neuropsych Cerebrovascular Accident Anesthetic Plan ASA status: 3 Anesthesia: MAC Risk of > 500 ml blood loss (7ml/kg in children): No Medications/Allergies Home Medications Medication Instructions Recorded Confirmed Last Taken Type biotin 1,000 mcg chewable tablet 1,000 mcg PO DAILY 06/08/19 07/19/23 07/19/23 History cetirizine 10 mg capsule (All Day 10 mg PO DAILY 06/08/19 07/19/23 07/19/23 History Allergy (cetirizine)) cholecalciferol (vitamin D3) 125 5,000 unit PO DAILY 06/08/19 07/19/23 07/19/23 History mcg (5,000 unit) disintegrating tablet ferrous sulfate 325 mg (65 mg 325 mg PO DAILY 06/08/19 07/19/23 07/19/23 History iron) tablet lysine 500 mg tablet (L-Lysine) 500 mg PO DAILY 06/08/19 07/19/23 07/19/23 History mecobalamin (vitamin B12) 5,000 5,000 mcg PO DAILY 06/08/19 07/19/23 07/19/23 History mcg disintegrating tablet acetaminophen 325 mg tablet 325 mg PO QID PRN Pain 08/14/19 07/19/23 07/18/23 History (Tylenol) amitriptyline 25 mg tablet 75 mg PO DAILY 04/21/20 07/19/23 07/19/23 History zinc acetate 25 mg (zinc) capsule 25 mg PO DAILY 01/12/21 07/19/23 07/19/23 History (Galzin) promethazine 25 mg tablet 25 mg PO TID PRN nausea and 01/28/21 07/19/23 Unknown Rx vomiting 30 days #90 tabs albuterol sulfate 90 mcg/actuation 2 puff inhalation 6XD PRN 04/28/22 07/19/23 Unknown Rx aerosol inhaler (Ventolin HFA) shortness of breath or wheezing #8.5 grams aspirin 81 mg tablet 81 mg PO DAILY 10/26/22 07/19/23 07/13/23 History rimegepant 75 mg disintegrating 75 mg PO PRN PRN Nausea 10/26/22 07/19/23 07/11/23 History tablet (Nurtec ODT) tennis elbow strap #1 ea 03/18/23 06/02/23 Unknown Rx diclofenac sodium 1 % topical gel See Rx Instructions .Route 06/06/23 07/19/23 Unknown Rx .COMPLEX #100 grams tizanidine 4 mg tablet 4 mg PO BID PRN muscle spasticity 06/13/23 07/19/23 Unknown Rx #60 tabs hydrocodone 5 mg-acetaminophen 325 1 tab PO Q6H PRN pain #14 tabs 07/06/23 07/19/23 07/18/23 Rx mg tablet ondansetron 4 mg disintegrating 4 mg PO Q6H PRN nausea and 07/06/23 07/19/23 Unknown Rx tablet vomiting #14 tabs atorvastatin 80 mg tablet 80 mg PO DAILY 07/19/23 07/19/23 07/19/23 History levothyroxine 25 mcg tablet 25 mcg PO DAILY 07/19/23 07/19/23 07/20/23 History pantoprazole 40 mg tablet,delayed 40 mg PO DAILY 07/19/23 07/19/23 07/19/23 History release sertraline 50 mg tablet 50 mg PO DAILY 07/19/23 07/19/23 07/19/23 History valacyclovir 1 gram tablet 1,000 mg PO DAILY PRN Cold Sores 07/19/23 07/19/23 Unknown History Allergies Allergy/AdvReac Type Severity Reaction Status Date / Time gabapentin Allergy ADR-Hyperte Verified 07/19/23 10:16 nsion lamotrigine [From Lamictal] Allergy ALGY-Rash Verified 07/19/23 10:16 meperidine [From Demerol] Allergy ADR-Halluci Verified 07/19/23 10:16 nating morphine Allergy ADR-Halluci Verified 07/19/23 10:16 nating tomato Allergy ALGY-Bliste Verified 07/19/23 10:16 r topiramate [From Topamax] Allergy ADR-Faintin Verified 07/19/23 10:16 g PFSH Anesthesia Medical History Pacemaker H/O coronary angiogram S/P transesophageal echocardiogram (LUCIA) Old cerebrovascular accident (CVA) without late effect SOB (shortness of breath) Tachycardia Post-traumatic stress disorder, chronic Major depressive disorder, recurrent severe without psychotic features Dyslipidemia Adjustment disorder, unspecified Post-traumatic stress disorder, chronic Surgical History H/O gastric bypass History of cholecystectomy Hx of tonsillectomy H/O foot surgery History of hysterectomy S/P spinal surgery History of loop recorder Family History Other Diabetes Stroke Social History Smoking and tobacco/nicotine status: never used tobacco/nicotine Second hand smoke exposure: Yes Alcohol intake: current Alcohol intake frequency: holidays/special occasions only Substance/Drug Use: never Lives independently: Yes Household members: significant other Marital status: Current occupational status: disabled Do you think of yourself as: Lesbian/Malik/Homosexual Current gender identity: Female Data Anesthesia Cardiac Studies: No Data to Display
[2023-07-20 06:17] VITALS: BP 121/84; PULSE 74; RESP 18; TEMP 36.3; O2SAT 99
[2023-07-20 06:19] VITALS: BMI 28.0
[2023-07-20] MEDS: sodium chloride 0.9% 1,000 ML 30 ML IV (06:22)
[2023-07-20] MEDS: acetaminophen 1,000 MG/100 ML PIGGYBACK 400 MG IV (06:23)
[2023-07-20] MEDS: scopolamine 1.5 Patch 1 PATCH TRANSDERMA (06:24)
[2023-07-20] MEDS: ketorolac 30 mg/mL INJ IVP (06:25)
--- NOTE | 2023-07-20 06:55 | W.PM.OPSFHP ---
Same Day Surgery H&P Indication for Procedure/HPI DATE OF PROCEDURE: July 20, 2023 CHIEF COMPLAINT/INDICATIONFOR SURGICAL PROCEDURE: Left carpal tunnel syndrome PREOP DIAGNOSIS: Left carpal tunnel syndrome PLANNED PROCEDURE: Operation Date: 07/20/23 07:00 Proposed Procedures p Carpal Tunnel Release(Left) - Stef Vargas DO Medications/Allergies* Home Medications Medication Instructions Recorded Confirmed Type biotin 1,000 mcg chewable tablet 1,000 mcg PO DAILY 06/08/19 07/19/23 History cetirizine 10 mg capsule (All Day 10 mg PO DAILY 06/08/19 07/19/23 History Allergy (cetirizine)) cholecalciferol (vitamin D3) 125 5,000 unit PO DAILY 06/08/19 07/19/23 History mcg (5,000 unit) disintegrating tablet ferrous sulfate 325 mg (65 mg 325 mg PO DAILY 06/08/19 07/19/23 History iron) tablet lysine 500 mg tablet (L-Lysine) 500 mg PO DAILY 06/08/19 07/19/23 History mecobalamin (vitamin B12) 5,000 5,000 mcg PO DAILY 06/08/19 07/19/23 History mcg disintegrating tablet acetaminophen 325 mg tablet 325 mg PO QID PRN Pain 08/14/19 07/19/23 History (Tylenol) amitriptyline 25 mg tablet 75 mg PO DAILY 04/21/20 07/19/23 History zinc acetate 25 mg (zinc) capsule 25 mg PO DAILY 01/12/21 07/19/23 History (Galzin) aspirin 81 mg tablet 81 mg PO DAILY 10/26/22 07/19/23 History rimegepant 75 mg disintegrating 75 mg PO PRN PRN Nausea 10/26/22 07/19/23 History tablet (Nurtec ODT) atorvastatin 80 mg tablet 80 mg PO DAILY 07/19/23 07/19/23 History levothyroxine 25 mcg tablet 25 mcg PO DAILY 07/19/23 07/19/23 History pantoprazole 40 mg tablet,delayed 40 mg PO DAILY 07/19/23 07/19/23 History release sertraline 50 mg tablet 50 mg PO DAILY 07/19/23 07/19/23 History valacyclovir 1 gram tablet 1,000 mg PO DAILY PRN Cold Sores 07/19/23 07/19/23 History Allergies/Adverse Reactions Allergy/AdvReac Type Severity Reaction Status Date / Time gabapentin Allergy ADR-Hyperte Verified 07/19/23 10:16 nsion lamotrigine [From Lamictal] Allergy ALGY-Rash Verified 07/19/23 10:16 meperidine [From Demerol] Allergy ADR-Halluci Verified 07/19/23 10:16 nating morphine Allergy ADR-Halluci Verified 07/19/23 10:16 nating tomato Allergy ALGY-Bliste Verified 07/19/23 10:16 r topiramate [From Topamax] Allergy ADR-Faintin Verified 07/19/23 10:16 g Current Medications: Generic Name Dose Route Start Last Admin Trade Name Freq PRN Reason Stop Dose Admin Sodium Chloride 1,000 mls @ 30 mls/hr 07/20/23 06:00 07/20/23 06:22 Sodium Chloride 0.9% IV 07/21/23 05:59 30 mls/hr .Q24H ALEXA Administration Pertinent History/Comorbid Conditions* Medical History (Updated 07/14/23 @ 00:01 by KRISTI Lepe) Pacemaker H/O coronary angiogram S/P transesophageal echocardiogram (LUCIA) Old cerebrovascular accident (CVA) without late effect SOB (shortness of breath) Tachycardia Post-traumatic stress disorder, chronic Major depressive disorder, recurrent severe without psychotic features Dyslipidemia Adjustment disorder, unspecified Post-traumatic stress disorder, chronic Surgical History (Updated 04/21/20 @ 09:45 by ARDEN Evangelista) H/O gastric bypass History of cholecystectomy Hx of tonsillectomy H/O foot surgery History of hysterectomy S/P spinal surgery History of loop recorder Family History (Updated 08/08/19 @ 10:57 by Hollie Taylor RN) Diabetes Stroke Social History Smoking and tobacco/nicotine status: never used tobacco/nicotine Second hand smoke exposure: Yes Alcohol intake: current Alcohol intake frequency: holidays/special occasions only Substance/Drug Use: never Lives independently: Yes Household members: significant other Marital status: Current occupational status: disabled Do you think of yourself as: Lesbian/Malik/Homosexual Current gender identity: Female Pertinent Exam Findings alert, oriented x 3, operative site marked and procedure specific exam findings For the last office visit on 06/02/2023 for full orthopedic examination. Which includes: bilateral UE Normal C-spine ROM No pain. Negative Spurlings Negative Tinel's@ shoulder. Normal ROM Normal ROM elbow. Negative Tinel's@ elbow Right and Left. Tenderness palpation over the right lateral epicondyle with pain with resisted wrist extension Wrist: Positive median compression test bilaterally Positive positive on left Posiive positive on right. Positive Phalens bilaterally. Thenar weakness bilaterally. no atrophy noted. No Intrinsic atrophy noted bilaterally. no CMC TTP Bilaterally. Negative Grind test. Recommendations Surgery/Procedure today Other Plans: Plan to proceed to the OR today with left carpal tunnel release. Understands risk benefits complication alternatives of surgery and through shared decision make elects proceed with surgery today all questions answered. Coding Level of Care Code Acute Code for [facility] Fwbecca
[2023-07-20] MEDS: ceFAZolin 2,000 MG in sodium chloride 0.9% (plus) 50 ML 100 MG IV (07:00)
--- NOTE | 2023-07-20 07:00 | W.PM.OPSUD ---
Surgery/Procedure H&P Update DATE OF PROCEDURE: July 20, 2023 DATE H&P PERFORMED: 06/02/23 H&P UPDATE INFORMATION: I have examined patient prior to procedure and No changes to prior documentation PREOP DIAGNOSIS: Left carpal tunnel syndrome PRIMARY INDICATION FOR PROCEDURE: Left carpal tunnel syndrome PLANNED PROCEDURE: Operation Date: 07/20/23 07:00 Proposed Procedures p Carpal Tunnel Release(Left) - Stef Vargas DO
[2023-07-20] MEDS: lidocaine-epi 1% 20 mL INJ 5 ML INJECTION (07:28)
[2023-07-20] MEDS: ROPivacaine 0.5% SDV 30 mL 25 MG INJECTION (07:28)
--- NOTE | 2023-07-20 07:43 | P.OP_ITS ---
Operative Report Date of procedure: July 20, 2023 Surgeon: Stef Vargas DO Clinical Cytopathologist: Fabian Vargas PA-C: PA was necessary for assistance in this case with hand positioning to execute the procedure, retraction and protection of neurovascular structures as well as to assist with wound closure and dressing application. Procedure: Preoperative diagnosis: Left carpal tunnel syndrome post-op diagnosis: Same Procedure done: 1.?Left carpal tunnel release Surgeon: Stef Vargas DO Anesthesia: MAC (Local) Estimated blood?loss: 1 mL Tourniquet time 9 minutes IV fluids: See anesthesia record Complications: None Findings: See operative report narrative Condition: stable Disposition: same day Brief History: Patient is a pleasant 43year-old female?with?left carpal tunnel syndrome.? Patient has been worked up in the outpatient setting findings and physical examination consistent with this.?? We detailed?out?patient's risk benefits complication alternatives with surgical and?nonsurgical treatment options. Through shared decision making, patient?agrees to proceed with surgical intervention of the?left carpal tunnel release .? Patient understands and agrees with current plan.? All questions answered.? Patient elects to proceed with surgical intervention with carpal tunnel release. Procedure: Patient seen and evaluated in the preoperative holding area.? Consent was reviewed and signed with patient.? Correct extremity was marked.? Patient was seen evaluated by the anesthesia department once cleared for surgery was brought back to the operative suite.? Patient was kept on [facility] in supine position all bony prominences were well-padded patient properly secured to the bed.??Left upper extremity was then placed onto an armboard.? A nonsterile tourniquet was applied to the?left upper arm.? Patient underwent anesthesia per the anesthesia department.? Patient's?left upper extremity was then prepped and draped in standard orthopedic fashion.? Final timeout performed.? Patient received appropriate preoperative antibiotics. Under sterile aseptic technique patient received?local anesthesia over the preplanned carpal tunnel incision site. Esmarch was used to exsanguinate the?left upper extremity and tourniquet was insufflated to 250 mmHg. A standard mini open?left carpal tunnel incision was made.? Starting distally at Bruce's cardinal?line in?line with the fourth ray extending proximally distal to the wrist crease centered over the carpal tunnel.? Sharp scalpel incision was made through skin and subcutaneous tissue.? Self-retaining retractor was placed and the palmar fascia was identified.? This was then split?longitudinally and direct visualization of the transverse carpal?ligament was then made.? I then utilizing scalpel feathered through the transverse carpal?ligament until I entered the floor of the transverse carpal tunnel?ligament into the carpal tunnel.? Next I switched to dissection scissors and completed my release of the transverse carpal?ligament distally with care to protect the recurrent motor branch.? I completely released into the palmar fat and until no entrapment was noted distally.? Care was made to protect the superficial palmar arch during my distal dissection.? Next I then placed a [place] underneath the transverse carpal tunnel?ligament to protect the contents of the carpal tunnel and subsequently utilizing dissection scissors under?loupe magnification completely released the transverse carpal?ligament proximally into the median antebrachial fascia.? Care was made to protect the palmar cutaneous branch by keeping my scissors curved ulnarly.? Once completely released, I then placed my [place] and had appropriate decompression of the carpal tunnel proximally as well as distally.? I then inspected the contents of the carpal tunnel which showed an hourglass shape of the median nerve showing its compression.? No masses were noted.? Tendons appeared healthy.? Wound was then thoroughly irrigated.? Tourniquet deflated.? Hemostasis satisfactory with bipolar electrocautery.? I then closed the incision with interrupted nylon stitches.? Xeroform 4 x 4's and a bulky soft dressing was applied to the?left upper extremity.? Patient was then awakened from anesthesia and taken to PACU in stable condition.? Patient tolerated procedure without complications. Disposition: Patient taken to PACU in stable condition recovering well.? Dressing clean dry and intact.? Patient will receive appropriate discharge instructions as well as pain medication postoperatively.? Patient to follow-up with me in the office in 2 weeks.? They understand they may be weightbearing as tolerated to the?left hand.? Patient should keep incision clean dry and intact.? Patient understands if any questions or concerns may contact the office.
[2023-07-20 07:44] VITALS: BP 94/59; PULSE 88; RESP 18; TEMP 36.1; O2SAT 94
--- NOTE | 2023-07-20 07:44 | P.BOP_ITS ---
Date of Procedure: [July 20, 2023] Surgeon: [Dr. Alicia DO] Counting Machine Operator(s): [Fabian Vargas PA-C] Procedure(s) performed: [Left carpal tunnel release] Findings of the procedure(s): [Left carpal tunnel syndrome] Estimated blood loss: [1 mL] Specimen(s) removed: [N/A] Post-operative diagnosis: [Left carpal tunnel syndrome]
--- NOTE | 2023-07-20 07:46 | P.PCN_ITS ---
PACU note Narrative: Patient is a 43-year-old female just underwent a left carpal tunnel release. Patient transferred to PACU in stable condition. Pain is well controlled. Dressing on hand is dry and in place. Patient's fingers are warm and well- perfused. Patient can wiggle fingers. normal cap refill under 2 seconds. Patient has normal elbow range of motion. Unable to assess sensation due to residual localized anesthetic. Exam: awake Disposition: discharged
[2023-07-20 07:49] VITALS: BP 97/59; PULSE 78; RESP 18; O2SAT 95
[2023-07-20 07:54] VITALS: BP 101/63; PULSE 70; RESP 18; O2SAT 96
[2023-07-20 08:07] VITALS: BP 103/68; PULSE 70; RESP 18; TEMP 36.1; O2SAT 97
--- NOTE | 2023-07-20 08:35 | ANE.PACU2 ---
Inpatient post-anesthesia follow up: Airway intact: Yes Vital signs: Temperature 97 F Pulse Rate 70 Respiratory Rate 18 Blood Pressure 103/68 Pulse Oximetry 97 Oxygen Delivery Me thod Room Air Oxygen Flow Rate Fraction of Inspir ed Oxygen Hydration adequate: Yes Nausea and vomiting: No Pain level: 1 Mental status: Baseline
== END 2023-07-20 08:35 | disposition home or self-care (01) ==
PROVIDERS: PCP Nurse Practitioner Family; Visit Provider Student in an Organized Health Care Education/Training Program
PROC: (CPT 64721; principal; 2023-07-20 07:00)
DX: G56.02 Carpal tunnel syndrome, left upper limb (principal); Z98.84 Bariatric surgery status; Z86.73 Personal history of transient ischemic attack (TIA), and cerebral infarction without residual deficits; Z95.0 Presence of cardiac pacemaker; E78.5 Hyperlipidemia, unspecified
CPT/HCPCS: 64721; J0131; J0690; J1885; J2250; J2704; J2795; J3010; J7030

== ENCOUNTER → 2023-07-29 14:58 | Outpatient (BNVA) | payer MEDICARE, MEDICAID, SELFPAY | PROVIDERS: PCP Nurse Practitioner Family; Visit Provider Nurse Practitioner Family | DX: R50.9 Fever, unspecified (principal) | CPT/HCPCS: 87400; 87426 ==

== ENCOUNTER → 2023-08-03 10:14 | Outpatient (BNVA) | payer MEDICARE, MEDICAID, SELFPAY | PROVIDERS: PCP Nurse Practitioner Family; Visit Provider Nurse Practitioner Family | DX: E11.9 Type 2 diabetes mellitus without complications (principal); Z98.84 Bariatric surgery status; E03.9 Hypothyroidism, unspecified | CPT/HCPCS: 80053; 80061; 82306; 83036; 84443; 85025 ==

== ENCOUNTER → 2023-08-09 09:12 | Outpatient (BNVA) | payer MEDICARE, MEDICAID, SELFPAY | PROVIDERS: PCP Nurse Practitioner Family; Visit Provider Student in an Organized Health Care Education/Training Program | DX: G56.02 Carpal tunnel syndrome, left upper limb (principal) | CPT/HCPCS: 99214 ==

== ENCOUNTER 2023-08-10 11:14 | Day surgery (SDC) | payer MEDICARE, MEDICAID, SELFPAY ==
[2023-08-10] VITALS (7 sets, daily range): BP systolic 121–145; BP diastolic 58–99; PULSE 71–83; RESP 14–18; TEMP 36.8–36.9; O2SAT 94–100
--- NOTE | 2023-08-10 11:43 | W.PM.OPSUD ---
Surgery/Procedure H&P Update DATE OF PROCEDURE: August 10, 2023 DATE H&P PERFORMED: 08/09/23 H&P UPDATE INFORMATION: I have reviewed H&P completed within last 30 days, I have examined patient prior to procedure and No changes to prior documentation PREOP DIAGNOSIS: Right carpal tunnel syndrome PRIMARY INDICATION FOR PROCEDURE: Right carpal tunnel syndrome PLANNED PROCEDURE: Operation Date: 08/10/23 13:05 Proposed Procedures p Carpal Tunnel Release(Right) - Stef Vargas DO
[2023-08-10] MEDS: sodium chloride 0.9% 1,000 ML 30 ML IV (11:55)
[2023-08-10] MEDS: ketorolac 30 mg/mL INJ IVP (11:56)
[2023-08-10] MEDS: acetaminophen 1,000 MG/100 ML PIGGYBACK 400 MG IV (11:56)
--- NOTE | 2023-08-10 12:57 | ANES.PREANE2 ---
Pre-Anesthetic Assessment Height/Weight: Height 1.63 m Weight 74.843 kg Temp Pulse Resp BP Pulse Ox O2 Del Method 98.5 F 75 16 121/80 100 Room Air 08/10/23 11:36 08/10/23 11:36 08/10/23 11:36 08/10/23 11:36 08/10/23 11:36 08/10/23 11:36 Preop Diagnosis: Right carpal tunnel syndrome Operation Date: 08/10/23 13:05 Proposed Procedures p Carpal Tunnel Release(Right) - Stef Vargas DO Familial anesthetic complications: None Was Beta Elyssa taken within 24 hours: N/A Was Clonidine taken within 24 hours: N/A Last intake: Intake Last Liquid Date 03/24/17 Last Solid Date 08/09/23 Last Solid Time 23:00 Social No alcohol and No tobacco Exam alert, oriented x 3, clear to auscultation bilaterally and regular rate & rhythm CV/HEM pacemaker - AAI GI gastric bypass Metabolic Diabetes Mellitus and Thyroid Disease Neuropsych Cerebrovascular Accident Anesthetic Plan ASA status: 3 Anesthesia: MAC Risk of > 500 ml blood loss (7ml/kg in children): No Medications/Allergies Home Medications Medication Instructions Recorded Confirmed Last Taken Type biotin 1,000 mcg chewable tablet 1,000 mcg PO DAILY 06/08/19 08/09/23 08/09/23 History cetirizine 10 mg capsule (All Day 10 mg PO DAILY 06/08/19 08/09/23 08/09/23 History Allergy (cetirizine)) cholecalciferol (vitamin D3) 125 5,000 unit PO DAILY 06/08/19 08/09/23 08/09/23 History mcg (5,000 unit) disintegrating tablet ferrous sulfate 325 mg (65 mg 325 mg PO DAILY 06/08/19 08/09/23 08/09/23 History iron) tablet lysine 500 mg tablet (L-Lysine) 500 mg PO DAILY 06/08/19 08/09/23 08/09/23 History mecobalamin (vitamin B12) 5,000 5,000 mcg PO DAILY 06/08/19 08/09/23 08/09/23 History mcg disintegrating tablet acetaminophen 325 mg tablet 325 mg PO QID PRN Pain 08/14/19 08/09/23 07/18/23 History (Tylenol) amitriptyline 25 mg tablet 75 mg PO DAILY 04/21/20 08/09/23 08/09/23 History zinc acetate 25 mg (zinc) capsule 25 mg PO DAILY 01/12/21 08/09/23 08/09/23 History (Galzin) promethazine 25 mg tablet 25 mg PO TID PRN nausea and 01/28/21 08/09/23 Unknown Rx vomiting 30 days #90 tabs albuterol sulfate 90 mcg/actuation 2 puff inhalation 6XD PRN 04/28/22 08/09/23 Unknown Rx aerosol inhaler (Ventolin HFA) shortness of breath or wheezing #8.5 grams aspirin 81 mg tablet 81 mg PO DAILY 10/26/22 08/09/23 08/02/23 History rimegepant 75 mg disintegrating 75 mg PO PRN PRN Nausea 10/26/22 08/09/23 07/11/23 History tablet (Nurtec ODT) tennis elbow strap #1 ea 03/18/23 08/09/23 Unknown Rx diclofenac sodium 1 % topical gel See Rx Instructions .Route 06/06/23 08/09/23 Unknown Rx .COMPLEX #100 grams tizanidine 4 mg tablet 4 mg PO BID PRN muscle spasticity 06/13/23 08/09/23 Unknown Rx #60 tabs ondansetron 4 mg disintegrating 4 mg PO Q6H PRN nausea and 07/06/23 08/09/23 Unknown Rx tablet vomiting #14 tabs valacyclovir 1 gram tablet 1,000 mg PO DAILY PRN Cold Sores 07/19/23 08/09/23 Unknown History tramadol 50 mg tablet 50 mg PO Q6H PRN pain #20 tabs 07/20/23 08/09/23 08/09/23 Rx atorvastatin 80 mg tablet 80 mg PO DAILY #90 tabs 07/29/23 08/09/23 08/09/23 Rx levothyroxine 25 mcg tablet 25 mcg PO DAILY #90 tabs 07/29/23 08/10/23 08/10/23 Rx pantoprazole 40 mg tablet,delayed 40 mg PO BID #180 tabs 07/29/23 08/09/23 08/09/23 Rx release sertraline 50 mg tablet 50 mg PO DAILY #90 tabs 07/29/23 08/09/23 08/09/23 Rx ondansetron 4 mg disintegrating 4 mg PO Q8H PRN nausea and 08/10/23 Unknown Rx tablet vomiting 3 days #9 tabs tramadol 50 mg tablet 50 mg PO Q6H PRN pain #20 tabs 08/10/23 Unknown Rx Allergies Allergy/AdvReac Type Severity Reaction Status Date / Time gabapentin Allergy ADR-Hyperte Verified 08/09/23 10:33 nsion lamotrigine [From Lamictal] Allergy ALGY-Rash Verified 08/09/23 10:33 meperidine [From Demerol] Allergy ADR-Halluci Verified 08/09/23 10:33 nating morphine Allergy ADR-Halluci Verified 08/09/23 10:33 nating tomato Allergy ALGY-Bliste Verified 08/09/23 10:33 r topiramate [From Topamax] Allergy ADR-Faintin Verified 08/09/23 10:33 g Current Medications Generic Name Dose Route Start Last Admin Trade Name Freq PRN Reason Stop Dose Admin Sodium Chloride 1,000 mls @ 30 mls/hr 08/10/23 11:30 08/10/23 11:55 Sodium Chloride 0.9% IV 08/11/23 11:29 30 mls/hr .Q24H ALEXA Administration PFSH Anesthesia Medical History Pacemaker H/O coronary angiogram S/P transesophageal echocardiogram (LUCIA) Old cerebrovascular accident (CVA) without late effect SOB (shortness of breath) Tachycardia Post-traumatic stress disorder, chronic Major depressive disorder, recurrent severe without psychotic features Dyslipidemia Adjustment disorder, unspecified Post-traumatic stress disorder, chronic Surgical History H/O gastric bypass History of cholecystectomy Hx of tonsillectomy H/O foot surgery History of hysterectomy S/P spinal surgery History of loop recorder Family History Other Diabetes Stroke Social History Smoking and tobacco/nicotine status: never used tobacco/nicotine Second hand smoke exposure: Yes Alcohol intake: current Alcohol intake frequency: holidays/special occasions only Substance/Drug Use: never Lives independently: Yes Household members: significant other Marital status: Current occupational status: disabled Do you think of yourself as: Lesbian/Malik/Homosexual Current gender identity: Female Data Anesthesia Cardiac Studies: No Data to Display
[2023-08-10] MEDS: ceFAZolin 2,000 MG in sodium chloride 0.9% (plus) 50 ML 100 MG IV (13:40)
[2023-08-10] MEDS: lidocaine-epi 1% PF 1:200,000 30 mL SDV INJECTION (13:45)
[2023-08-10] MEDS: ROPivacaine 0.5% SDV 30 mL 150 MG INJECTION (13:45)
--- NOTE | 2023-08-10 14:35 | P.OP_ITS ---
Operative Report Date of procedure: August 10, 2023 Surgeon: Stef Vargas DO Learning Operations Specialist: Fabian Vargas PA-C: PA was necessary for assistance in this case with hand positioning to execute the procedure, retraction and protection of neurovascular structures as well as to assist with wound closure and dressing application. Procedure: Preoperative diagnosis: Right carpal tunnel syndrome post-op diagnosis: Same Procedure done: 1.?Right carpal tunnel?release Surgeon: Stef Vargas DO Anesthesia: MAC (Local) Estimated blood loss: [2]mL Tourniquet time [8]minutes IV fluids: See anesthesia?record Complications: None Findings: See operative?report narrative Condition: stable Disposition: same day Brief History: Patient is a pleasant [43]year-old [female] with?right carpal tunnel syndrome.? Patient has been worked up in the outpatient setting findings and physical examination consistent with this.? Patient has had her left side done and has done well with her left carpal tunnel release surgery and wishes to proceed with right carpal tunnel release surgery. We detailed out patient's?risk benefits complication alternatives with surgical and nonsurgical treatment options. Through shared decision making, patient agrees to proceed with surgical intervention of the right carpal tunnel?release .? Patient understands and agrees with current plan.? All questions answered.? Patient elects to proceed with surgical intervention with carpal tunnel?release. Procedure: Patient seen and evaluated in the preoperative holding area.? Consent was? reviewed and signed with patient.? Correct extremity was marked.? Patient was seen evaluated by the anesthesia department once cleared for surgery was brought back to the operative suite.? Patient was kept on [facility] in supine position all bony prominences were well-padded patient properly secured to the bed.??Right upper extremity was then placed onto an armboard.? A nonsterile tourniquet was applied to the?Right upper arm.? Patient underwent anesthesia per the anesthesia department.? Patient's?Right upper extremity was then prepped and draped in standard orthopedic fashion.? Final timeout performed.? Patient?received appropriate preoperative antibiotics. Under sterile aseptic technique patient?received local anesthesia over the preplanned carpal tunnel incision site. Esmarch was used to exsanguinate the?Right upper extremity and tourniquet was insufflated to 250 mmHg. A standard mini open?Right carpal tunnel incision was made.? Starting distally at Bruce's cardinal line in line with the fourth?ray extending proximally distal to the wrist crease centered over the carpal tunnel.? Sharp scalpel incision was made through skin and subcutaneous tissue.? Self-retain ing?retractor was placed and the palmar fascia was identified.? This was then split longitudinally and direct visualization of the transverse carpal ligament was then made.? I then utilizing scalpel feathered through the transverse carpal ligament until I entered the floor of the transverse carpal tunnel ligament into the carpal tunnel.? Next I switched to dissection scissors and completed my?rele ase of the transverse carpal ligament distally with care to protect the?recurrent motor branch.? I completely?released into the palmar fat and until no entrapment was noted distally.? Care was made to protect the superficial palmar arch during my distal dissection.?? Next I utilized a nasal speculum placed on top of the transverse carpal ligament and utilize this to?retract the subcutaneous fat and tissue and under direct loupe magnification was able to identify the transverse carpal ligament.? Next I then placed a [place] underneath the transverse carpal tunnel ligament to protect the contents of the carpal tunnel and subsequently utilizing dissection scissors under loupe magnification completely?released the transverse carpal ligament proximally into the median antebrachial fascia.? Care was made to protect the palmar cutaneous branch by keeping my scissors curved ulnarly.? Once completely?released, I then placed my [place] and had appropriate decompression of the carpal tunnel proximally as well as distally.? I then inspected the contents of the carpal tunnel which showed an hourglass shape of the median nerve showing its compression.? No masses were noted.? Tendons appeared healthy.? Wound was then thoroughly irrigated.? Tourniquet deflated.? Hemostasis satisfactory with bipolar electrocautery.? I then closed the incision with interrupted nylon stitches.? Xeroform 4 x 4's and a bulky soft dressing was applied.? Patient was then awakened from anesthesia and taken to PACU in stable condition.? Patient tolerated procedure without complications. Disposition: Patient taken to PACU in stable condition?recovering well.? Dressing clean dry and intact.? Patient will?receive appropriate discharge instructions as well as pain medication postoperatively.? Patient to follow-up w daniel henry in the office in 2 weeks.? They understand they may be weightbearing as tolerated to the?right hand.? Patient should keep incision clean dry and intact.? Patient understands if any questions or concerns may contact the office.
--- NOTE | 2023-08-10 14:40 | W.PM.BPON ---
Date of Procedure: [August 10, 2023] Surgeon: [Dr. Alicia DO] Remote Sensing Analyst(s): [Fabian Vargas PA-C] Procedure(s) performed: [Right carpal tunnel release] Findings of the procedure(s): [Right carpal tunnel syndrome] Estimated blood loss: [2 ml] Specimen(s) removed: [n/a] Post-operative diagnosis: [Right carpal tunnel syndrome]
--- NOTE | 2023-08-10 14:42 | P.PCN_ITS ---
PACU note Narrative: Patient is a 43-year-old female just underwent a right carpal tunnel release. Patient transferred to PACU in stable condition. Pain is well controlled. Dressing on hand is dry and in place. Patient's fingers are warm and well- perfused. Patient can wiggle fingers. normal cap refill under 2 seconds. Patient has normal elbow range of motion. Unable to assess sensation due to residual localized anesthetic. Exam: awake Disposition: discharged
--- NOTE | 2023-08-10 15:25 | ANE.PACU2 ---
Inpatient post-anesthesia follow up: Airway intact: Yes Vital signs: Temperature 98.2 F Pulse Rate 71 Respiratory Rate 16 Blood Pressure 145/99 Pulse Oximetry 98 Oxygen Delivery Me thod Room Air Oxygen Flow Rate Fraction of Inspir ed Oxygen Hydration adequate: Yes Nausea and vomiting: No Pain level: 1 Mental status: Baseline
== END 2023-08-10 15:25 | disposition home or self-care (01) ==
PROVIDERS: PCP Nurse Practitioner Family; Visit Provider Student in an Organized Health Care Education/Training Program
PROC: (CPT 64721; principal; 2023-08-10 12:55)
DX: G56.01 Carpal tunnel syndrome, right upper limb (principal); Z95.0 Presence of cardiac pacemaker; Z98.84 Bariatric surgery status; E11.9 Type 2 diabetes mellitus without complications; Z86.73 Personal history of transient ischemic attack (TIA), and cerebral infarction without residual deficits; Z79.82 Long term (current) use of aspirin; E78.5 Hyperlipidemia, unspecified
CPT/HCPCS: 64721; J0131; J0690; J1885; J2250; J2704; J2795; J3010; J7030

== ENCOUNTER → 2023-08-23 10:28 | Outpatient (BNVA) | payer MEDICARE, MEDICAID, SELFPAY | PROVIDERS: PCP Nurse Practitioner Family; Visit Provider Physician Assistant | DX: Z98.890 Other specified postprocedural states (principal) | CPT/HCPCS: 99024 ==

== ENCOUNTER → 2023-10-05 14:43 | Outpatient (BNVA) | payer MEDICARE, MEDICAID, SELFPAY | PROVIDERS: PCP Nurse Practitioner Family; Visit Provider Nurse Practitioner Family | DX: R35.0 Frequency of micturition (principal) | CPT/HCPCS: 81003 ==

== ENCOUNTER 2024-02-02 08:41 | Outpatient (CLI) | payer MEDICARE, MEDICAID, SELFPAY ==
--- NOTE | 2024-02-02 09:00 | CT_ITS ---
WS: [id number] CT LEFT SHOULDER, NONCONTRAST HISTORY: Left shoulder pain decreased range of motion, tender to palpation. Technique: All CT scans at [facility] use at least one of these dose optimization techniques: automated exposure control; mA and/or kV adjustment per patient size (includes targeted exams where dose is matched to clinical indication); or iterative reconstruction. DLP: 294.88 mGy.cm COMPARISON: None available. Normal AC joint. Normal glenohumeral joint. No loose bodies or fracture. No destructive bone lesions. There is a very small subcortical cyst in the humeral head. The visualized ribs are normal. Dual-lead LEFT subclavian pacer. No soft tissue mass or adenopathy. No muscle atrophy. CT/CT shoulder LT wo con* [id number] IMPRESSION: 1. Normal CT LEFT shoulder. 2. No loose bodies or fracture. 3. No muscle atrophy.
== END 2024-02-02 08:42 | disposition home or self-care (01) ==
LOC: RAD 08:42
PROVIDERS: PCP Nurse Practitioner Family; Visit Provider Nurse Practitioner Family
DX: M25.612 Stiffness of left shoulder, not elsewhere classified (principal); M25.512 Pain in left shoulder
CPT/HCPCS: 73200

== ENCOUNTER → 2024-03-09 10:53 | Outpatient (BNVA) | payer MEDICARE, MEDICAID, SELFPAY | PROVIDERS: PCP Nurse Practitioner Family; Visit Provider Student in an Organized Health Care Education/Training Program | DX: M25.612 Stiffness of left shoulder, not elsewhere classified (principal); M25.512 Pain in left shoulder; M75.22 Bicipital tendinitis, left shoulder | CPT/HCPCS: 20610; 73030; 99214; J3301 ==

== ENCOUNTER 2024-03-19 16:07 | Emergency (ER) | payer MEDICARE, MEDICAID, SELFPAY ==
[2024-03-19 16:19] VITALS: BP 135/73; PULSE 94; RESP 18; TEMP 37.2; O2SAT 100; BMI 29.2
[2024-03-19 17:26] LABS: Basophils # 0.1 10^3/uL (0.0-0.1); Basophils % 0.6 %; Eosinophils # 0.1 10^3/uL (0.0-0.8); Eosinophils % 0.7 %; Hematocrit 40.6 % (36-47); Lymphocytes # 1.8 10^3/uL (0.8-4.8); Mean Corpuscular Hemoglobin 32.9 pg (27-33); Mean Corpuscular Volume 96.9 fl (85-98); Mean Platelet Volume 8.6 fL (7.4-10.4); Monocytes # 0.8 10^3/uL (0.2-0.9); Monocytes % 7.6 %; Neutrophils # 7.97 10^3/uL (1.8-7.7); Neutrophils % 73.7 %; Nucleated Red Blood Cells % 0 %; Platelet Count 264 10^3/cmm (157-399); Red Blood Count 4.19 10^6/uL (3.85-5.65); Red Cell Distribution Width 12.1 % (12.1-15.1); White Blood Count 10.82 10^3/uL (3.29-11.43)
[2024-03-19 17:39] LABS: Alanine Aminotransferase 35 U/L (0-33); Albumin Level 4.1 g/dL (3.5-5.2); Alkaline Phosphatase 75 U/L (35-105); Anion Gap 11.8 (5-19); Aspartate Amino Transferase 25 U/L (0-32); Blood Urea Nitrogen 13 mg/dL (6-20); Calcium 9.2 mg/dL (8.5-10.5); Carbon Dioxide 28 mmol/L (22-29); Chloride 101 mmol/L (98-107); Globulin 2.4 g/dL (1.3-4.6); Glomerular Filtration Rate 90.5 mL/min (90-130); Glucose 98 mg/dL (65-115); Lipase 42 U/L (13-60); Osmolality Calculated 284 mOsm/kg (285-295); Potassium 3.8 mmol/L (3.5-5.1); Sodium 137 mmol/L (136-145); Total Bilirubin 0.3 mg/dL (0.15-1.2); Total Protein 6.5 g/dL (6.6-8.7)
[2024-03-19 18:00] VITALS: BP 138/77; PULSE 79; O2SAT 99
--- NOTE | 2024-03-19 18:01 | CTR_ITS ---
PROCEDURE INFORMATION: Exam: CT Abdomen And Pelvis With Contrast Exam date and time: 03/19/2024 6:52 PM Age: 43 years old Clinical indication: Abdominal pain; Other: Llq; Additional info: Llq pain TECHNIQUE: Imaging protocol: Computed tomography of the abdomen and pelvis with contrast. Radiation optimization: All CT scans at this facility use at least one of these dose optimization techniques: automated exposure control; mA and/or kV adjustment per patient size (includes targeted exams where dose is matched to clinical indication); or iterative reconstruction. Contrast material: OMNI 350; Contrast volume: 100 ml; Contrast route: INTRAVENOUS (IV); COMPARISON: CT abdomen pelvis w con* [id number] 07/06/2023 4:30 PM RADIATION DOSE METRICS: Total DLP (mGy-cm): 679.55 FINDINGS: Liver: Hepatic steatosis. Gallbladder and biliary ducts: Cholecystectomy. Pancreas: Normal. No ductal dilation. Spleen: Normal. No splenomegaly. Adrenal glands: Normal. No mass. Kidneys and ureters: Normal. No hydronephrosis. Stomach and bowel: Prominent fluid in the stomach and small bowel, please correlate for a gastroenteritis. Gastric surgical sutures. Appendix: No evidence of appendicitis. Intraperitoneal space: Unremarkable. No free air. No significant fluid collection. Vasculature: Unremarkable. No abdominal aortic aneurysm. Lymph nodes: Unremarkable. No enlarged lymph nodes. Urinary bladder: Unremarkable as visualized. Reproductive: Unremarkable as visualized. Bones/joints: Unremarkable. No acute fracture. Soft tissues: Unremarkable. CT/CT abdomen pelvis w con* [id number] IMPRESSION: 1. Prominent fluid in the stomach and small bowel, please correlate for a gastroenteritis. 2. Gastric surgical sutures. 3. Hepatic steatosis. 4. Cholecystectomy.
--- NOTE | 2024-03-19 18:13 | ED_ITS ---
HPI - Abdominal Pain 2 General: Chief Complaint: Abdominal Pain Stated Complaint: fever, abd pain, Nausea, dark stools Time Seen by Provider: 03/19/24 17:09 Source: patient Mode of arrival: ambulatory Limitations: no limitations History of Present Illness: 43-year-old female states she been havin g left lower quadrant pain for 2 to 3 weeks. States been a sharp pain she seen urgent care last week started on Cipro Flagyl which she is finished states she still having some pain she rates a 5 out of 10 she has been having low-grade fever as well has a history of gastric bypass in the past. Associated Symptoms: Reports nausea; Denies chills, diarrhea, dysuria and fever(s) Related Data Home Medications Medication Instructions Recorded Confirmed biotin 1,000 mcg chewable tablet 1,000 mcg PO DAILY 06/08/19 03/12/24 cetirizine 10 mg capsule (All Day 10 mg PO DAILY 06/08/19 03/12/24 Allergy (cetirizine)) cholecalciferol (vitamin D3) 125 5,000 unit PO DAILY 06/08/19 03/12/24 mcg (5,000 unit) disintegrating tablet ferrous sulfate 325 mg (65 mg 325 mg PO DAILY 06/08/19 03/12/24 iron) tablet lysine 500 mg tablet (L-Lysine) 500 mg PO DAILY 06/08/19 03/12/24 mecobalamin (vitamin B12) 5,000 5,000 mcg PO DAILY 06/08/19 03/12/24 mcg disintegrating tablet acetaminophen 325 mg tablet 325 mg PO QID PRN Pain 08/14/19 03/12/24 (Tylenol) amitriptyline 25 mg tablet 75 mg PO DAILY 04/21/20 03/12/24 zinc acetate 25 mg (zinc) capsule 25 mg PO DAILY 01/12/21 03/12/24 (Galzin) aspirin 81 mg tablet 81 mg PO DAILY 10/26/22 03/12/24 rimegepant 75 mg disintegrating 75 mg PO PRN PRN Nausea 10/26/22 03/12/24 tablet (Nurtec ODT) Previous Rx's Medication Instructions Recorded promethazine 25 mg tablet 25 mg PO TID PRN nausea and 01/28/21 vomiting 30 days #90 tabs albuterol sulfate 90 mcg/actuation 2 puff inhalation 6XD PRN 04/28/22 aerosol inhaler (Ventolin HFA) shortness of breath or wheezing #8.5 grams tennis elbow strap #1 ea 03/18/23 diclofenac sodium 1 % topical gel See Rx Instructions .Route 06/06/23 .COMPLEX #100 grams tizanidine 4 mg tablet 4 mg PO BID PRN muscle spasticity 06/13/23 #60 tabs ondansetron 4 mg disintegrating 4 mg PO Q6H PRN nausea and 07/06/23 tablet vomiting #14 tabs atorvastatin 80 mg tablet See Rx Instructions .Route 10/21/23 .COMPLEX #90 tabs levothyroxine 25 mcg tablet See Rx Instructions .Route 10/21/23 .COMPLEX #90 tabs oxybutynin chloride 5 mg See Rx Instructions .Route 10/21/23 tablet,extended release 24 hr .COMPLEX #90 tabs pantoprazole 40 mg tablet,delayed See Rx Instructions .Route 10/21/23 release .COMPLEX #180 tabs sertraline 50 mg tablet See Rx Instructions .Route 10/21/23 .COMPLEX #90 tabs valacyclovir 1 gram tablet See Rx Instructions .Route 10/21/23 .COMPLEX #21 tabs ciprofloxacin HCl 500 mg tablet 500 mg PO BID #14 tabs 03/12/24 (Cipro) metronidazole 375 mg capsule 375 mg PO BID #14 caps 03/12/24 (Flagyl) ondansetron 4 mg disintegrating 4 mg PO Q6H PRN nausea and 03/19/24 tablet vomiting #14 tabs Allergies Allergy/AdvReac Type Severity Reaction Status Date / Time gabapentin Allergy ADR-Hyperte Verified 03/12/24 13:34 nsion lamotrigine [From Lamictal] Allergy ALGY-Rash Verified 03/12/24 13:34 meperidine [From Demerol] Allergy ADR-Halluci Verified 03/12/24 13:34 nating morphine Allergy ADR-Halluci Verified 03/12/24 13:34 nating tomato Allergy ALGY-Bliste Verified 03/12/24 13:34 r topiramate [From Topamax] Allergy ADR-Faintin Verified 03/12/24 13:34 g Review of Systems 2 Const: Denies: fever(s), chills, body aches or change in appetite ENMT: Denies: throat pain or dental pain Card: Denies: chest pain Resp: Denies: dyspnea GI: Reports: abdominal pain and nausea; Denies: diarrhea : Denies: dysuria Musc: Denies: neck pain or back pain Skin/Breast: Denies: rash Neuro: Denies: headache(s) PFSH ED 2 PFSH: Medical History History of pacemaker Pacemaker H/O coronary angiogram S/P transesophageal echocardiogram (LUCIA) Old cerebrovascular accident (CVA) without late effect SOB (shortness of breath) Tachycardia Post-traumatic stress disorder, chronic Major depressive disorder, recurrent severe without psychotic features Dyslipidemia Adjustment disorder, unspecified Post-traumatic stress disorder, chronic Surgical History History of esophagogastroduodenoscopy (EGD) H/O gastric bypass History of cholecystectomy Hx of tonsillectomy H/O foot surgery History of hysterectomy S/P spinal surgery History of loop recorder Family History Other Diabetes Stroke Social History Smoking and tobacco/nicotine status: current every day tobacco/nicotine user cigarettes Packs smoked per day: 1 Years cigarettes smoked: 1 [ Other cigarette details: Used vape for 8 Years] Second hand smoke exposure: Yes Alcohol intake: current Alcohol intake frequency: holidays/special occasions only Substance/Drug Use: never Lives independently: Yes Household members: significant other Marital status: Current occupational status: disabled Do you think of yourself as: Lesbian/Malik/Homosexual Current gender identity: Female Physical Exam 2 Const: COMMON NORMALS: no acute distress, patient oriented x3 and healthy appearing HENMT: COMMON NORMALS: normocephalic and atraumatic HEAD & SCALP: n ormocephalic and atraumatic Eye: COMMON NORMALS: conjunctivae normal CONJUNCTIVA: Yes conjunctivae normal Neck/C-Spine: COMMON NORMALS: full ROM and supple Chest: COMMONS NORMALS: normal inspection of the chest Resp: COMMON NORMALS: normal respiratory effort, No retractions, No use of accessory muscles and clear to auscultation bilaterally AUSCULTATION: clear to auscultation bilaterally Cardio: COMMON NORMALS: regular rate, regular rhythm and No murmurs present (Cardio) RATE: regular rate RHYTHM: regular rhythm GI: COMMON NORMALS: Normal to inspection, nondistended, normoactive bowel sounds present, Soft to palpation and no masses PALPATION: Yes Soft to palpation OTHER: left sided abd tenderness Extremity: COMMON NORMALS: normal to inspection and full ROM Neuro: COMMON NORMALS: patient oriented x3, moves all extremities and no focal motor deficits Psych: COMMON NORMALS: mental status grossly normal, Normal thought process present and cooperative THOUGHT PROCESS: Normal thought process present Skin: COMMON NORMALS: no rashes or lesions noted and no wounds GENERAL SKIN EXAM: no rashes or lesions noted Course 2 Vital Signs: Vital signs: Vital Signs Temperature 99.0 F 03/19/24 16:19 Pulse Rate 86 03/19/24 20:00 Respiratory Rate 18 03/19/24 16:19 Blood Pressure 129/89 03/19/24 20:00 Pulse Oximetry 98 03/19/24 20:00 Oxygen Delivery Me thod Room Air 03/19/24 19:30 MDM - Abdominal Pain Medical Decision Making Patient presents with abdominal pains going for weeks she is well-appearing here blood works normal CT showed no acute findings she is stable for discharge she is follow-up with PCP return if worsening she understands agrees to plan. Medical Records I reviewed the patient's medical records. Lab Data I reviewed the patient's lab results. 03/19/24 17:11 03/19/24 17:11 Labs/Radiology: Radiology Impressions Abdomen/Pelvis CT 03/19/24 18:01 IMPRESSION: 1. Prominent fluid in the stomach and small bowel, please correlate for a gastroenteritis. 2. Gastric surgical sutures. 3. Hepatic steatosis. 4. Cholecystectomy. Laboratory Results WBC 10.82 10^3/uL (3.29-11.43) 03/19/24 17:11 RBC 4.19 10^6/uL (3.85-5.65) 03/19/24 17:11 Hgb 13.80 g/dL (11.27-16.99) 03/19/24 17:11 Hct 40.6 % (36-47) 03/19/24 17:11 MCV 96.9 fl (85-98) 03/19/24 17:11 MCH 32.9 pg (27-33) 03/19/24 17:11 MCHC 34.0 g/dL (30-55) 03/19/24 17:11 RDW 12.1 % (12.1-15.1) 03/19/24 17:11 Plt Count 264 10^3/cmm (157-399) 03/19/24 17:11 MPV 8.6 fL (7.4-10.4) 03/19/24 17:11 Neut % (Auto) 73.7 % 03/19/24 17:11 Lymph % (Auto) 17.0 % 03/19/24 17:11 [place] % (Auto) 7.6 % 03/19/24 17:11 Eos % (Auto) 0.7 % 03/19/24 17:11 Baso % (Auto) 0.6 % 03/19/24 17:11 Neut # (Auto) 7.97 10^3/uL (1.8-7.7) H 03/19/24 17:11 Lymph # (Auto) 1.8 10^3/uL (0.8-4.8) 03/19/24 17:11 [place] # (Auto) 0.8 10^3/uL (0.2-0.9) 03/19/24 17:11 Eos # (Auto) 0.1 10^3/uL (0.0-0.8) 03/19/24 17:11 Baso # (Auto) 0.1 10^3/uL (0.0-0.1) 03/19/24 17:11 Nucleated RBC % (auto) 0 % 03/19/24 17:11 Nucleated RBCs # 0.0 /100WBC 03/19/24 17:11 PT 12.40 SECONDS (12.1-14.9) 03/19/24 17:11 INR 0.90 (0.8-1.2) 03/19/24 17:11 Sodium 137 mmol/L (136-145) 03/19/24 17:11 Potassium 3.8 mmol/L (3.5-5.1) 03/19/24 17:11 Chloride 101 mmol/L (98-107) 03/19/24 17:11 Carbon Dioxide 28 mmol/L (22-29) 03/19/24 17:11 Anion Gap 11.8 (5-19) 03/19/24 17:11 BUN 13 mg/dL (6-20) 03/19/24 17:11 Creatinine 0.7 mg/dL (0.5-0.9) 03/19/24 17:11 GFR Calculation 90.5 mL/min (90-130) 03/19/24 17:11 Glucose 98 mg/dL (65-115) 03/19/24 17:11 Calculated Osmolality 284 mOsm/kg (285-295) L 03/19/24 17:11 Calcium 9.2 mg/dL (8.5-10.5) 03/19/24 17:11 Total Bilirubin 0.3 mg/dL (0.15-1.2) 03/19/24 17:11 AST 25 U/L (0-32) 03/19/24 17:11 ALT 35 U/L (0-33) H 03/19/24 17:11 Alkaline Phosphatase 75 U/L (35-105) 03/19/24 17:11 Total Protein 6.5 g/dL (6.6-8.7) L 03/19/24 17:11 Albumin 4.1 g/dL (3.5-5.2) 03/19/24 17:11 Globulin 2.4 g/dL (1.3-4.6) 03/19/24 17:11 Lipase 42 U/L (13-60) 03/19/24 17:11 All radiology interpretation(s) finalized by discharge Discharge Plan Discharge Patient Disposition: Home Clinical Impression: Abdominal pain Condition: Stable Prescriptions: New ondansetron 4 mg tablet,disintegrating 4 mg PO Q6H PRN (Reason: nausea and vomiting) Qty: 14 0RF No Action amitriptyline 25 mg tablet 75 mg PO DAILY Galzin 25 mg (zinc) capsule 25 mg PO DAILY mecobalamin (vitamin B12) 5,000 mcg tablet,disintegrating 5,000 mcg PO DAILY All Day Allergy (cetirizine) 10 mg capsule 10 mg PO DAILY biotin 1,000 mcg tablet,chewable 1,000 mcg PO DAILY ferrous sulfate 325 mg (65 mg iron) tablet 325 mg PO DAILY lysine [L-Lysine] 500 mg tablet 500 mg PO DAILY cholecalciferol (vitamin D3) 5,000 unit tablet,disintegrating 5,000 unit PO DAILY promethazine 25 mg tablet 25 mg PO TID PRN (Reason: nausea and vomiting) 30 Days Qty: 90 0RF (DME) tennis elbow strap See Rx Instructions .Route .MEDSUPPLY Qty: 1 0RF Rx Instructions: As directed albuterol sulfate [Ventolin HFA] 90 mcg/actuation HFA aerosol inhaler 2 puff inhalation 6XD PRN (Reason: shortness of breath or wheezing) Qty: 8.5 3RF ciprofloxacin HCl [Cipro] 500 mg tablet 500 mg PO BID Qty: 14 0RF metronidazole [Flagyl] 375 mg capsule 375 mg PO BID Qty: 14 0RF diclofenac sodium 1 % gel See Rx Instructions .ROUTE .COMPLEX Qty: 100 0RF Dose Instruction: APPLY 4 grams topically FOUR TIMES DAILY; APPLY TO single knee, ankle, foot, FOR foot includes sole/toes/top of food Rx Instructions: APPLY 4 grams topically FOUR TIMES DAILY; APPLY TO single knee, ankle, foot, FOR foot includes sole/toes/top of food tizanidine 4 mg tablet 4 mg PO BID PRN (Reason: muscle spasticity) Qty: 60 0RF valacyclovir 1 gram tablet See Rx Instructions .ROUTE .COMPLEX Qty: 21 2RF Dose Instruction: TAKE ONE TABLET BY MOUTH THREE TIMES DAILY FOR cold SORES FOR 7 days Rx Instructions: TAKE ONE TABLET BY MOUTH THREE TIMES DAILY FOR cold SORES FOR 7 days atorvastatin 80 mg tablet See Rx Instructions .ROUTE .COMPLEX Qty: 90 1RF Dose Instruction: TAKE ONE TABLET BY MOUTH DAILY Rx Instructions: TAKE ONE TABLET BY MOUTH DAILY levothyroxine 25 mcg tablet See Rx Instructions .ROUTE .COMPLEX Qty: 90 1RF Dose Instruction: TAKE ONE TABLET BY MOUTH EVERY MORNING ON a empty stomach Rx Instructions: TAKE ONE TABLET BY MOUTH EVERY MORNING ON a empty stomach sertraline 50 mg tablet See Rx Instructions .ROUTE .COMPLEX Qty: 90 1RF Dose Instruction: TAKE ONE TABLET BY MOUTH DAILY Rx Instructions: TAKE ONE TABLET BY MOUTH DAILY pantoprazole 40 mg tablet,delayed release (DR/EC) See Rx Instructions .ROUTE .COMPLEX Qty: 180 1RF Dose Instruction: TAKE ONE TABLET BY MOUTH TWICE DAILY Rx Instructions: TAKE ONE TABLET BY MOUTH TWICE DAILY oxybutynin chloride 5 mg tablet extended release 24hr See Rx Instructions .ROUTE .COMPLEX Qty: 90 1RF Dose Instruction: TAKE ONE TABLET BY MOUTH DAILY Rx Instructions: TAKE ONE TABLET BY MOUTH DAILY acetaminophen [Tylenol] 325 mg Tablet 325 mg PO QID PRN (Reason: Pain) aspirin 81 mg Tablet 81 mg PO DAILY Nurtec ODT 75 mg Tablet,Disintegrating 75 mg PO PRN PRN (Reason: Nausea) ondansetron 4 mg tablet,disintegrating 4 mg PO Q6H PRN (Reason: nausea and vomiting) Qty: 14 0RF Discharge Orders: Discharge ED (Routine); Ordered 03/19/24 Ordered By: Edilma Jackson Referrals: Graciela Raya FNP [Primary Care Provider] - 4-7 days Discharge Diet: Advance as tolerated Discharge Activity: Resume usual activity Patient Instructions: Abdominal Pain (ED) Coding Level of Care Code ED Billing Auditor for Fede Wilson
[2024-03-19] MEDS: iohexol 350 mg/mL 500 mL Btl (per mL) IV (18:55)
[2024-03-19 19:30] VITALS: BP 129/85; PULSE 81; O2SAT 98
[2024-03-19 20:00] VITALS: BP 129/89; PULSE 86; O2SAT 98
== END 2024-03-19 20:02 | disposition home or self-care (01) ==
PROVIDERS: Emergency Provider Emergency Medicine; PCP Nurse Practitioner Family
DX: R10.9 Unspecified abdominal pain (principal); Z79.82 Long term (current) use of aspirin; F17.210 Nicotine dependence, cigarettes, uncomplicated; Z95.0 Presence of cardiac pacemaker; E78.5 Hyperlipidemia, unspecified
CPT/HCPCS: 36415; 74177; 80053; 83690; 85025; 85610; 99285

== ENCOUNTER → 2024-04-04 10:20 | Outpatient (BNVA) | payer MEDICARE, MEDICAID, SELFPAY | PROVIDERS: PCP Nurse Practitioner Family; Visit Provider Surgery | DX: K21.9 Gastro-esophageal reflux disease without esophagitis | CPT/HCPCS: 99204; 99214 ==

== ENCOUNTER 2024-05-01 09:30 | Day surgery (SDC) | payer MEDICARE, MEDICAID, SELFPAY ==
--- NOTE | 2024-05-01 09:44 | P.HPUD_ITS ---
Surgery/Procedure H&P Update DATE OF PROCEDURE: May 01, 2024 DATE H&P PERFORMED: 04/04/24 H&P UPDATE INFORMATION: I have reviewed H&P completed within last 30 days, I have examined patient prior to procedure, No changes to prior documentation and H&P is in [facility] EMR on date indicated PLANNED PROCEDURE: Operation Date: 05/01/24 10:35 Proposed Procedures p EGD 13130, 86546, G0105, K92.2(Not Applicable) - Hitesh Flores MD s Colonoscopy(Not Applicable) - Hitesh Flores MD
[2024-05-01 09:52] VITALS: BP 161/87; PULSE 85; RESP 18; TEMP 36.8; O2SAT 99
[2024-05-01] MEDS: sodium chloride 0.9% 500 ML 15 ML IV (10:05)
--- NOTE | 2024-05-01 10:14 | ANES.PREANE2 ---
Pre-Anesthetic Assessment Height/Weight: Height 1.63 m Weight 79.379 kg Temp Pulse Resp BP Pulse Ox 98.2 F 85 18 161/87 99 05/01/24 09:52 05/01/24 09:52 05/01/24 09:52 05/01/24 09:52 05/01/24 09:52 Operation Date: 05/01/24 10:35 Proposed Procedures p EGD 95027, 67447, G0105, K92.2(Not Applicable) - Hitesh Flores MD s Colonoscopy(Not Applicable) - Hitesh Flores MD Familial anesthetic complications: None Was Beta Elyssa taken within 24 hours: N/A Was Clonidine taken within 24 hours: N/A Last intake: Intake Last Liquid Date 04/30/24 Last Liquid Time 21:00 Last Solid Date 04/29/24 Last Solid Time 19:00 Social No alcohol and No tobacco (Vape) Exam alert, oriented x 3, clear to auscultation bilaterally and regular rate & rhythm Airway Submandibular: within normal limits Cervical ROM: within normal limits Dentition: false History/ROS No significant history except as noted and No significant complaints Pulmonary None reported CV/HEM Anemia, Arrythmia, Coronary Artery Disease and Deep Vein Thrombosis Sick sinus syndrome, pacemaker 3 years ago None reported Hepatic None reported GI Gastric surgery 26 years ago Metabolic Thyroid Disease Musc/skel Lower Back Pain and Osteoarthritis/DJD Neuropsych Cerebrovascular Accident (4 strokes d/t overdose 2017, no issues since), Headache and Seizure (20-30 years ago. Hasn't happened since) Anesthetic Plan ASA status: 3 Anesthesia: Anesthesia Evaluation, General and MAC Risk of > 500 ml blood loss (7ml/kg in children): No Medications/Allergies Home Medications Medication Instructions Recorded Confirmed Last Taken Type biotin 1,000 mcg chewable tablet 1,000 mcg PO DAILY 06/08/19 04/26/24 04/26/24 History cetirizine 10 mg capsule (All Day 10 mg PO DAILY 06/08/19 04/26/24 04/29/24 17:00 History Allergy (cetirizine)) cholecalciferol (vitamin D3) 125 5,000 unit PO DAILY 06/08/19 04/26/24 04/29/24 17:00 History mcg (5,000 unit) disintegrating tablet ferrous sulfate 325 mg (65 mg 325 mg PO DAILY 06/08/19 04/26/24 04/30/24 06:30 History iron) tablet lysine 500 mg tablet (L-Lysine) 500 mg PO DAILY 06/08/19 04/26/24 04/29/24 17:00 History mecobalamin (vitamin B12) 5,000 5,000 mcg PO DAILY 06/08/19 04/26/24 04/29/24 17:00 History mcg disintegrating tablet acetaminophen 325 mg tablet 325 mg PO QID PRN Pain 08/14/19 04/26/24 07/18/23 History (Tylenol) amitriptyline 25 mg tablet 75 mg PO DAILY 04/21/20 04/26/24 04/25/24 History zinc acetate 25 mg (zinc) capsule 25 mg PO DAILY 01/12/21 04/26/24 04/25/24 History (Galzin) promethazine 25 mg tablet 25 mg PO TID PRN nausea and 01/28/21 04/26/24 Unknown Rx vomiting 30 days #90 tabs albuterol sulfate 90 mcg/actuation 2 puff inhalation 6XD PRN 04/28/22 04/26/24 Unknown Rx aerosol inhaler (Ventolin HFA) shortness of breath or wheezing #8.5 grams aspirin 81 mg tablet 81 mg PO DAILY 10/26/22 04/26/24 04/30/24 06:30 History rimegepant 75 mg disintegrating 75 mg PO PRN PRN Nausea 10/26/22 04/26/24 04/29/24 17:00 History tablet (Nurtec ODT) tennis elbow strap #1 ea 03/18/23 04/04/24 Unknown Rx tizanidine 4 mg tablet 4 mg PO BID PRN muscle spasticity 06/13/23 04/26/24 Unknown Rx #60 tabs ondansetron 4 mg disintegrating 4 mg PO Q6H PRN nausea and 07/06/23 04/26/24 Unknown Rx tablet vomiting #14 tabs atorvastatin 80 mg tablet 80 mg PO DAILY 04/26/24 04/26/24 04/25/24 History diclofenac sodium 1 % topical gel 4 g topical QID 04/26/24 04/26/24 04/29/24 17:00 History levothyroxine 25 mcg tablet 25 mcg PO DAILY 01/01/1004/26/24 04/29/24 17:00 History oxybutynin chloride 10 mg 10 mg PO DAILY 04/26/24 04/26/24 04/30/24 06:30 History tablet,extended release 24 hr pantoprazole 40 mg tablet,delayed 40 mg PO BID 04/26/24 04/26/24 04/26/24 History release sertraline 50 mg tablet 50 mg PO DAILY 04/26/24 04/26/24 04/30/24 06:30 History sucralfate 1 gram tablet 1 g PO TID 04/26/24 04/26/24 04/26/24 History valacyclovir 1 gram tablet 1,000 mg PO TID 04/26/24 04/26/24 Unknown History Allergies Allergy/AdvReac Type Severity Reaction Status Date / Time gabapentin Allergy ADR-Hyperte Verified 05/01/24 09:41 nsion lamotrigine [From Lamictal] Allergy ALGY-Rash Verified 05/01/24 09:41 meperidine [From Demerol] Allergy ADR-Halluci Verified 05/01/24 09:41 nating morphine Allergy ADR-Halluci Verified 05/01/24 09:41 nating tomato Allergy ALGY-Bliste Verified 05/01/24 09:41 r topiramate [From Topamax] Allergy ADR-Faintin Verified 05/01/24 09:41 g Current Medications Generic Name Dose Route Start Last Admin Trade Name Freq PRN Reason Stop Dose Admin Sodium Chloride 500 mls @ 15 mls/hr 05/01/24 09:33 05/01/24 10:05 Sodium Chloride 0.9% IV 05/02/24 09:32 15 mls/hr .Q24H PRN Administration COLONOSCOPY FLUIDS PFSH Anesthesia Medical History (Updated 04/04/24 @ 10:38 by KATINA Sifuentes) History of pacemaker Pacemaker H/O coronary angiogram S/P transesophageal echocardiogram (LUCIA) Old cerebrovascular accident (CVA) without late effect SOB (shortness of breath) Tachycardia Post-traumatic stress disorder, chronic Major depressive disorder, recurrent severe without psychotic features Dyslipidemia Adjustment disorder, unspecified Post-traumatic stress disorder, chronic Surgical History History of esophagogastroduodenoscopy (EGD) H/O gastric bypass History of cholecystectomy Hx of tonsillectomy H/O foot surgery History of hysterectomy S/P spinal surgery History of loop recorder Family History Other Diabetes Stroke Social History Smoking and tobacco/nicotine status: current every day tobacco/nicotine user cigarettes Packs smoked per day: 1 Years cigarettes smoked: 1 [ Other cigarette details: Used vape for 8 Years] Second hand smoke exposure: Yes Alcohol intake: current Alcohol intake frequency: holidays/special occasions only Substance/Drug Use: never Lives independently: Yes Household members: significant other Marital status: Current occupational status: disabled Do you think of yourself as: Lesbian/Malik/Homosexual Current gender identity: Female Data Anesthesia Cardiac Studies: No Data to Display
[2024-05-01 11:30] VITALS: BP 121/77; PULSE 73; RESP 18; TEMP 36.2; O2SAT 96
[2024-05-01 11:44] VITALS: BP 125/97; PULSE 75; RESP 18; O2SAT 99
[2024-05-01 11:52] VITALS: BP 138/95; PULSE 77; RESP 18; O2SAT 100
== END 2024-05-01 12:08 | disposition home or self-care (01) ==
PROVIDERS: PCP Nurse Practitioner Family; Visit Provider Surgery
PROC: 0DJ08ZZ Inspection of Upper Intestinal Tract, Via Natural or Artificial Opening Endoscopic (ICD-10-PCS; principal; 2024-05-01 10:35)
PROC: 0DJD8ZZ Inspection of Lower Intestinal Tract, Via Natural or Artificial Opening Endoscopic (ICD-10-PCS; CPT 45378; 2024-05-01 10:35)
DX: D12.0 Benign neoplasm of cecum (principal); D12.4 Benign neoplasm of descending colon; D12.5 Benign neoplasm of sigmoid colon; D12.3 Benign neoplasm of transverse colon; I25.10 Atherosclerotic heart disease of native coronary artery without angina pectoris; Z86.718 Personal history of other venous thrombosis and embolism; Z95.0 Presence of cardiac pacemaker; Z98.84 Bariatric surgery status; M19.90 Unspecified osteoarthritis, unspecified site; Z87.898 Personal history of other specified conditions; F17.210 Nicotine dependence, cigarettes, uncomplicated
CPT/HCPCS: 43239; 45380; 45385; 88305; J2704; J3490; J7040

== ENCOUNTER → 2024-05-16 11:19 | Outpatient (BNVA) | payer MEDICARE, MEDICAID, SELFPAY | PROVIDERS: PCP Nurse Practitioner Family; Visit Provider Surgery | DX: Z09 Encounter for follow-up examination after completed treatment for conditions other than malignant neoplasm (principal) | CPT/HCPCS: 99213 ==

== ENCOUNTER → 2024-08-22 15:28 | Outpatient (BNVA) | payer MEDICARE, MEDICAID, SELFPAY | PROVIDERS: PCP Nurse Practitioner Family; Visit Provider Nurse Practitioner Family | DX: E11.9 Type 2 diabetes mellitus without complications (principal); E03.9 Hypothyroidism, unspecified | CPT/HCPCS: 80053; 80061; 82306; 82607; 82670; 83001; 83036; 83735; 84144; 84439; 84443; 85025 ==

== ENCOUNTER 2024-10-16 18:04 | Emergency (ER) | payer MEDICARE, MEDICAID, SELFPAY ==
--- OUTSIDE RECORDS SUMMARY | 2024-10-16 18:11 | XMS_ITS | Encounter Summary ---
Author Organization [facility] Address [address] [place] [address] Care Team Providers Care Centrifugal Extractor Operator Name Role Phone Tristan Leonard MD, Nolan Burks Primary Care Provide r Encounter Details Date Type Department Care Team (Latest Contact Info) Description 11/17/[address] [facility] [address] [place] [id number] Andrea Evans MD NO ADDRESS ON FILE SPINAL STENOSIS-LUMBAR (Primary Dx); LUMB/LUMBOSAC DISC DEGEN; Lumbosacral spondylosis; LUMBAGO Social History Tobacco Use Types Packs/Day Years Used Date Smoking Tobacco: Never Assessed Comments Unknown Sex and Gender Information Value Date Recorded Sex Assigned at Not on file Legal Sex Female 3:46 AM [employer] Gender Identity Not on file Sexual Orientation Not on file documented as of this encounter Plan of Treatment Not on file documented as of this encounter Visit Diagnoses Diagnosis Spinal stenosis, lumbar region, without neurogenic claudication- Primary Degeneration of lumbar or lumbosacral intervertebral disc Lumbosacral spondylosis Lumbosacral spondylosis without myelopathy Lumbago documented in this encounter Care Teams Centrifugal Extractor Operator Relationship Specialty Start Date End Date Nolan Hudson Jr., MD PCP - General Family Practice 12/17/15 10/17/17 documented as of this encounter
--- OUTSIDE RECORDS SUMMARY | 2024-10-16 18:11 | XMS_ITS | Encounter Summary ---
Author Organization [facility] Address [address] [place] [address] Care Team Providers Care Traveling Construction Superintendent Name Role Phone Tristan Leonard MD, Nolan Burks Primary Care Provide r Encounter Details Date Type Department Care Team (Late st Contact Info) Description 12/26/2002 Inpatient Historical [facility] [address] [place] [id number] Tom Martí[place] [address] [place] [address] Renetta Hong MD [address] [id number] MANIC-DEPRESSIVE NEC (CMS/HCC) (Primary Dx) Social History Tobacco Use Types Packs/Day Years Used Date Smoking Tobacco: Never Assessed Comments Unknown Sex and Gender Information Value Date Recorded Sex Assigned at Not on file 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
--- OUTSIDE RECORDS SUMMARY | 2024-10-16 18:11 | XMS_ITS | Encounter Summary ---
Author Organization [facility] Address [address] [place] [address] Care Team Providers Care Tax Accountant Name Role Phone Tristan Leonard MD, Nolan Burks Primary Care Provide r Encounter Details Date Type Department Care Team (Latest Contact Info) Description 11/17/2004 Outpatient Historical [facility] [address] 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
--- OUTSIDE RECORDS SUMMARY | 2024-10-16 18:11 | XMS_ITS | Encounter Summary ---
Author Organization [facility] Address [address] [facility] [place] [address] Care Team Providers Care Director Of Nuclear Medicine Name Role Phone Tristan Leonard MD, Nolan Burks Primary Care Provide r Encounter Details Date Type Department Care Team (Latest Contact Info) Description 01/23/2003 Inpatient Historical 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
--- OUTSIDE RECORDS SUMMARY | 2024-10-16 18:11 | XMS_ITS | Clinical Summary ---
Author Organization [facility] Address [address] Attn: Epic Prelude ADT [place] [address] Care Team Providers Care Junior Project Manager Name Role Phone Denise Colbert MD Primary Care Provider [phone] Allergies Active Allergy Reactions Criticality Noted Date Comments Gabapentin Neutropenia Medium 01/06/2016 Lamotrigine Rash Medium 10/03/2011 Meperidine (Pf) Hallucination Medium 10/03/2011 Morphine Other (See Comments) 06/15/2021 Chest pain Pregabalin Shortness of Breath/Wheezing High 12/05/2015 Topiramate Other (See Comments) 06/18/2021 Lowered Heart Rate & Passed out Unclassified Drug Rash,Swelling High 12/17/2015 Iron infusions Medications calcium as carbonate (CALTRATE) 1,500 mg (600 mg elemental) Tablet Take by mouth 3 times daily with meals. Active cetirizine (ZyrTEC) 10 mg tablet Take 10 mg by mouth daily. Active cyanocobalamin (VITAMIN B-12) 500 mcg tablet Take 500 mcg by mouth daily. Active BIOTIN ORAL Take 1 Tablet by mouth daily. Active sertraline (ZOLOFT) 50 mg tablet Take 50 mg by mouth daily. Active levothyroxine 25 mcg tablet Take 25 mcg by mouth daily in the morning. Active ZINC GLUCONATE ORAL Take by mouth. Active ASCORBIC ACID, VITAMIN C, ORAL Take by mouth. Active aspirin (ECOTRIN EC) 81 mg Tablet, Delayed Release (E.C.) Take 81 mg by mouth daily. Active Nurtec ODT 75 mg Tablet, Rapid Dissolve 10/17/2021 Active atorvastatin (LIPITOR) 80 mg tablet Take 80 mg by mouth daily. 09/23/2021 Active amitriptyline (ELAVIL) 50 mg tablet Take 50 mg by mouth daily at bedtime. 10/16/2021 Active valACYclovir 1 gram tablet Take 1,000 mg by mouth 2 times daily. Active hydrOXYzine HCL (ATARAX) 25 mg tablet Take 25 mg by mouth 4 times daily. 09/03/2016 Active calcium as carbonate (CALTRATE) 1,500 mg (600 mg elemental) Tablet Take by mouth 3 times daily with meals. 01/06/2016 Active desvenlafaxine (PRISTIQ) 100 mg Extended Release 24 hour tablet Take 100 mg by mouth daily with breakfast. 12/08/2015 Active omeprazole (PriLOSEC) 20 mg Capsule, Delayed Release(E.C.) Take 20 mg by mouth daily. 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/15/2021 Overview (06/15/2021): Added automatically from request for surgery [id number] SSS (sick sinus syndrome) 06/15/2021 Overview (06/15/2021): Added automatically from request for surgery [id number] Near syncope 06/15/2021 Overview (06/15/2021): Added automatically from request for surgery [id number] Complicated migraine Resolved Problems Problem Noted Date Diagnosed Date Resolved Date Right sided weakness 12/06/2015 016 Intractable migraine with status migrainosus 12/08/2015 Abnormal gait 01/06/2016 Encounters Date Type Department Care Team Description 10/02/2024 External Device Data [facility] ABSTRACTION Provider, Abstract 09/18/2024 External Device Data [facility] ABSTRACTION Provider, Abstract 09/06/2024 External Device Data [facility] ABSTRACTION Provider, Abstract 09/04/2024 External Device Data [facility] ABSTRACTION Provider, Abstract 09/03/2024 8:00 AM CDT Procedure visit [facility] [address] [place] [phone] Sick sinus syndrome (CMS/HCC) (Primary Dx); Cardiac pacemaker in situ 07/31/2024 External Device Data [facility] ABSTRACTION Provider, Abstract from Last 3 Months Family History Medical History Relation Name Comments Healthy Brother Asthma Daughter 1 Healthy Daughter 2 Diabetes Father Hypertension Father Lung Cancer Father Stroke Father Diabetes Mother High Cholesterol Mother Hypertension Mother Diabetes Sister 1 Diabetes Sister 2 Healthy Son Relation Name Status Comments Brother Alive Daughter 1 Alive Daughter 2 Alive Father Mother Alive Sister 1 Alive Sister 2 Alive Son Alive Social History Tobacco Use Types Packs/Day Years Used Date Smoking Tobacco: Some Days Smokeless Tobacco: Never Alcohol Use Standard Drinks/Week Comments Yes 0 (1 standard drink = 0.6 oz pur e alcohol) Comments Unknown Sex and Gender Information Value Date Recorded Sex Assigned at Female 02/13/2024 7:40 PM CDT Legal Sex Female 12:03 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 Gender Identity Female 02/13/2024 7:40 PM CDT Sexual Orientation Not on file Last Filed Vital Signs Vital Sign Reading Time Taken Comments Blood Pressure 124/74 11/10/2023 1:34 PM CDT Pulse 76 11/10/2023 1:34 PM CDT Temperature 36 C (96.8 F) 06/19/2021 8:25 AM LAY OUT TECHNICIAN Respiratory Rate 15 06/19/2021 1:30 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 Oxygen Saturation 96% 06/19/2021 1:30 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 Inhaled Oxygen Concentration - - Weight 77.9 kg (171 lb 12.8 oz) 11/10/2023 1:34 PM CDT Height 163.8 cm (5' 4.5 ) 11/10/2023 1:34 PM CDT Body Mass Index 29.03 11/10/2023 1:34 PM CDT Plan of Treatment Upcoming Encounters Date Type Department Care Team (Late st Contact Info) Description 12/11/2024 8:00 AM CDT Procedure visit [facility] [address] [place] [address] Health Maintenance Due Date Last Done Comments Pre-Diabetes and Diabetes Screening 1978 DTAP/TDAP/TD VACCINES (1 - Tdap) 1997 HEPATITIS B VACCINES (1 of 3 - 19+ 3-dose series) 1997 HPV/Cotest (21-29) 06/17/1999 CERVICAL CANCER SCREENING 2008 HPV/Cotest (30-65) 2008 PAP SMEAR 2008 BREAST CANCER SCREENING 2018 11/10/2015 COLORECTAL SCREENING 06/17/2023 Colorectal Cancer Screening 06/17/2023 FIT-DNA Q 3 years 06/17/2023 FIT/FOBT Q 1 year 06/17/2023 Flex Sig/CT Colonography Q 5 years 06/17/2023 INFLUENZA VACCINE (#1) 2023 01/17/2020 HPV VACCINES Aged Out No longer eligi ble based on patient's age to complete this topic Medical Devices Implanted Type Area Physical Therapy Assistant Instructor Device Identifier Shelf Expiration Date Model / Serial / Lot Lead Pacing Capsure Fix Novus 45cm [id number] - Csc - [id number] Implanted:Qty: 1 on 06/19/2021 by Tracie Gomez MD at [facility] Lead Left: Chest [employer]- CRM - BULK BUY 05/04/2023 5076-45 / [id number] / F Lead Pacing Capsure Fix Novus 52cm [id number] - Csc - [id number] Implanted:Qty: 1 on 06/19/2021 by Tracie Gomez MD at [facility] Lead Left: Chest [employer]- CRM - BULK BUY 03/30/2023 [id number] / [id number] / F Pacemaker [place] Xt [address] Pathak [id number] - [id number] Implanted:Qty: 1 on 06/19/2021 by Tracie Gomez MD at [facility] Pacemaker Left: Chest [employer]- CRM - BULK BUY 11/12/2022 [id number] / [id number] / F Medtronic Description:Loop recorder Procedures Procedure Name Priority Date/Time Associated Diagnosis Comments SC REM INTERROG PM/LDLS PM/IDS <90 D TECH REVIEW Routine 09/03/2024 8:13 PM CDT Sick sinus syndrome (CMS/HCC) Cardiac pacemaker in situ SC REM INTERROG PM/LDLS PM <90 D PHYS/QHP Routine 09/03/2024 8:13 PM CDT Sick sinus syndrome (CMS/HCC) Cardiac pacemaker in situ from Last 3 Months Results * SC REM INTERROG PM/LDLS PM <90 D PHYS/QHP, SC REM INTERROG PM/LDLS PM/IDS <90 D TECH REVIEW (09/03/2024 8:13 PM CDT) 09/03/2024 8:13 PM CDT Narrative INTERFACE SYSTEM - 09/04/2024 3:32 PM CDT Remote Transmission Report Date of Procedure: September 03, 2024 Events: None Comments: [facility]link remote transmission reveals normal dual chamber Pacemaker function with stable available threshold and impedance trends. Presenting EGM indicates Atrial sensing with ventricular sensing. Follow-up with Remote in 3 months. See attached report for details. Procedure Note Provider, Historical - 09/04/2024 Remote Transmission Report Date of Procedure: September 03, 2024 Events: None Comments: Carelink remote transmission reveals normal dual chamber Pacemakerfunction with stable available threshold and impedance trends. Presenting EGM indicates Atrial sensing with ventricular sensing. Follow-up with Remote in 3 months. See attached report for details. Tracie Gomez MD CARDIAC SERVICES ORDERABLES E dited Result - Final INTERFACE SYSTEM Refer to clinic/hospital department from Last 3 Months Insurance MEDICAID [place] [employer] CHOICE [facility] Advance Directives For more information, please contact: [phone] * Full Code (Latest Code Status on File) Date Activated Date Inactivated Comments 06/19/2021 11:30 AM 06/19/2021 6:53 PM Care Teams Junior Project Manager Relationship Specialty Start Date End Date Denise Colbert MD [address] [address] PCP - General Family Practice 06/18/21
--- OUTSIDE RECORDS SUMMARY | 2024-10-16 18:11 | XMS_ITS | Patient Health Record ---
Author Organization [facility] Address [address] [place] [address] Care Team Providers Care Agricultural Produce Packer Name Role Phone Graciela Raya APRN Primary Care Provider Bernadette Diaz Unavailable [phone] Allergies Allergen (clinical drug ingredient) Drug/Non Drug Allergy documented on EMR Reaction Allergy Type Onset Date Status meperidine Demerol hallucinations Drug Allergy A ctive gabapentin Gabapentin Unknown Drug Allergy Activ e lamotrigine Lamictal rash Drug Allergy Activ e pregabalin Lyrica Unknown Drug Allergy Active topiramate Topamax bradycardia Drug Allergy Acti ve morphine Morphine chest pain Drug Allergy Active Reason For Referral No Information Medications Medication SIG (Take, Route, Frequency, Duration) Notes Start Date End Date Status Levothyroxine Sodium 25 MCG 1 tablet in the morning on an empty stomach Orally Once a day for 90 days Active Iron 325 (65 Fe) MG 1 tablet Orally Once a day for 30 days Active Cetirizine HCl 10 MG TAKE ONE TABLET BY MOUTH EVERY DAY for 30 Active Calcium-Vitamin D 500-400 MG-UNIT 1 tablet Orally Once a day for 30 day(s) Active Zoloft 50 MG 1 tablet Orally Once a day for 30 Active Biotin 10 MG 1 tablet Orally Once a day Active Bisacodyl 5 MG 1 tablet as needed Orally Once a day for 30 day(s) Active Vitamin B 12 500 MCG 1 tablet Orally Once a day Active Amitriptyline HCl 100 MG 1 tablet at bedtime Orally Once a day for 30 day(s) Dr. Herring, Neurologist Active ProAir HFA 108 (90 Base) MCG/ACT 1-2 puffs as needed Inhalation every 4 hrs for SOB for 30 Active Aspirin 325 MG 1 tablet Orally Once a day Active Omeprazole 20 MG TAKE ONE CAPSULE BY MOUTH TWICE DAILY for 90 Active Metoclopramide HCl 10 MG 1 tablet before meals Orally every 8 hours with ASA 81mg at onset of migraine for 30 day(s) Dr. Herring Active Lipitor 80 MG 1 tablet Orally Once a day for 30 day(s) Active Immunizations Vaccine Route Administration Date Status Comme nts Afluria Quadrivalent Influenza Vaccine 3 years+ IM Intramuscular 01/17/2020 Administered Social History Tobacco Use: Social History Observation Description Date Details (start date - stop date) Current Smoker NA - NA xTobacco Use/Smoking Question Answer Notes Are you a current smoker Alcohol Screen (Audit-C) Question Answer Notes Did you have a drink contain ing alcohol in the past year? Yes How often did you have a dri nk containing alcohol in the past year? Monthly or less (1 point) How many drinks did you have on a typical day when you were drinking in the past year? 1 or 2 drinks (0 point) How often did you have 6 or more drinks on one occasion in the past year? Never (0 point) Points 1 Interpretation Negative Problems Problem Type SNOMED Code ICD Code Onset Dates Problem Status W/U Status Risk Notes Problem Iron deficiency anemia (36946054) Iron deficiency anemia, unspecified (D50.9) Active confirmed Problem Major depression, single episode (56901746) Major depressive disorder, single episode, unspecified (F32.9) Active confirmed Problem 37027436 Sick sinus syndr ome (I49.5) Active confirmed Problem 63709709 Essential hypertension (I10) Active confirmed Problem 014529136 Hypothyroidism (acquired) (E03.9) Active confirmed Problem 80940495 Migraine without status migrainosus, not intractable, unspecified migraine type (G43.909) Active confirmed Problem 68935642 Hypercholesterol emia (E78.00) Active confirmed Problem 909935784 Pacemaker (Z95.0) Active confirmed Problem Benign essential hypertension (7998842) Essential hypertension, benign (401.1) 2018 Active confirmed [id number]- Problem History of bariatric surgical procedure (271221219) Bariatric surgery status (V45.86) 2015 Active confirmed [id number]- Problem Iron deficiency anemia (67716952) Iron deficiency anemia, unspecified (280.9) 2013 Active confirmed [id number]- Problem Moderate recurrent major depression (18967143) Major depression, recurrent episode, moderate (296.32) 2014 Active confirmed [id number]- Problem Convulsion (81045770) Seizure(s); other (780.39) 2015 Active confirmed [id number]- Problem Cerebral infarction due to thrombosis of cerebral arteries (421667953) Cerebrovascular accident due to cerebral thrombosis (434.01) 2017 Active confirmed [id number]- Problem Anemia (627188453) Unspecified a nemia (285.9) 2018 Problem resolved confirmed [id number]- Problem Generalized anxiety disorder (08978139) Generalized anxiety disorder (300.02) 2015 Problem resolved confirmed [id number]- Problem Carpal tunnel syndrome (65072611) Carpal tunnel syndrome (354.0) 2016 Problem resolved confirmed [id number]- Problem Sciatica (79332666) Sciatica (724.3) 11/17 Problem resolved confirmed [id number]- Problem Headache (36633957) Headache (784.0) 2018 Problem resolved confirmed [id number]- Problem Urinary hesitancy (7794381) Urinary hesitancy (788.64) 2014 Problem resolved confirmed [id number]- Problem Reduced libido (0309926) Decreased libido (799.81) 2018 Problem resolved confirmed [id number]- Problem History of surgery (589038385) Personal history of surgery to other organs (V15.29) 2014 Problem resolved confirmed [id number]- Problem Fever blister (1232137) Fever blister (054.9) 2014 Problem resolved confirmed [id number]- Problem Vitamin B12 deficiency (743719029) Vitamin B12 deficiency (266.2) 2013 Problem resolved confirmed [id number]- Problem Hypokalemia (79825988) Hypokalemia (276.8) 2015 Problem resolved confirmed [id number]- Problem Dizziness (615941089) Dizziness (780.4) 2017 Problem resolved confirmed [id number]- Problem Low back pain (514860778) Low back pain (724.2) 2014 Problem resolved confirmed [id number]- Problem Neck pain (36619298) Neck pain (723.1) 2016 Problem resolved confirmed [id number]- Problem Arthralgia of temporomandibular joint (68758152) TMJ arthralgias (524.62) 2013 Problem resolved confirmed [id number]- Problem Headache (84908923) Headache (307.81) 2015 Problem resolved confirmed [id number]- Problem Hypotension (96713300) Hypotension, other (458.8) 2015 Problem resolved confirmed [id number]- Problem Jaw pain (890796874) Jaw pain (526.9) 2013 Problem resolved confirmed [id number]- Problem Loss of hair (030355856) Loss of hair (704.00) 2018 Problem resolved confirmed [id number]- Problem Shoulder pain (85949415) Shoulder pain (719.41) 2016 Problem resolved confirmed [id number]- Problem Supraventricular tachycardia (3878681) Supraventricular tachycardia (427.0) 2017 Problem resolved confirmed [id number]- Problem Night sweats (35209809) Night sweats (780.8) 2016 Problem resolved confirmed [id number]- Problem Breast lump (22235973) Breast lump (611.72) 2015 Problem resolved confirmed [id number]- Problem Depressive disorder (87907610) Depressive disorder not elsewhere classified (311) 2016 Problem resolved confirmed [id number]- Problem Generalized abdominal pain (926908784) Generalized abdominal pain (789.07) 2017 Problem resolved confirmed [id number]- Problem Lab: Used to mat ch unlinked laboratory orders (V92) 2013 Problem resolved confirmed [id number]- Problem Impaired fasting glycaemia (502374178) Elevated fasting glucose (790.21) 2014 Problem resolved confirmed [id number]- Problem Hand pain (90790142) Hand pain (729.5) 2013 Problem resolved confirmed [id number]- Problem Infective otitis externa (52453363) Ear auricle infection (380.10) 2014 Problem resolved confirmed [id number]- Problem Foot pain (43169845) Foot pain (729.5) 2014 Problem resolved confirmed [id number]- Problem Insomnia (754942003) Insomnia (307.41) 2016 Problem resolved confirmed [id number]- Problem Spasmodic torticollis (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) Neck muscle spasm (333.83) 2016 Problem resolved confirmed [id number] [id number]- Problem Needs influenza immunization (737654919) Vaccination against other viral diseases, Influenza (V04.81) 2016 Problem resolved confirmed [id number] [id number]- Problem Acute stress rita ction with anxiety (308.0) 2018 Problem resolved confirmed [id number] [id number]- Problem Disturbance in speech (91481346) Other speech disturbance (784.59) 2017 Problem resolved confirmed [id number]- Problem Right lower quadrant pain (924276439) Abdominal pain (RLQ) (789.03) 2015 Problem resolved confirmed [id number]- Problem Neoplasm of uncertain behavior of skin (74516542) Atypical skin lesion (238.2) 2014 Problem resolved confirmed [id number] [id number]- Problem Constipation secondary to opiate use (E935.2) 2015 Problem resolved confirmed [id number] [id number]- Problem Thyroid function tests abnormal (484198143) Abnormal thyroid findings (794.5) 2014 Problem resolved confirmed [id number]- Problem Constipation (41866545) Constipation (564.01) 2013 Problem resolved confirmed [id number] [id number]- Problem Knee pain (5315796009) Knee pain (719.46) 2013 Problem resolved confirmed [id number] [id number]- Problem Black stools (45102337) Black stools (578.1) 2017 Problem resolved confirmed [id number]- Problem Heart murmur (53203442) Cardiac murmur (785.2) 2017 Problem resolved confirmed [id number] [id number]- Problem Central obesity (877585256) Central obesity (278.1) 2016 Problem resolved confirmed [id number] [id number]- Problem Toe pain (376548403) Toe pain (729.5) 2013 Problem resolved confirmed [id number] 5911- Problem Vitamin D deficiency (66746916) Vitamin D deficiency, unspecified (268.9) 2016 Problem resolved confirmed [id number] 5911- Problem Mixed sedative overdose (967.6) 2018 Problem resolved confirmed [id number] [id number]- Problem Essential hypertension (63786294) Essential hypertension (401.1) 2017 Problem resolved confirmed [id number] [id number]- Problem Neurogenic bladder (738440735) Neurogenic hypotonic bladder (596.54) 2014 Problem resolved confirmed [id number] 5911- Problem Possible STD exp osure (V15.85) 2018 Problem resolved confirmed [id number] 5911- Problem Attempted suicid e (E958.8) 2017 Problem resolved confirmed [id number] [id number]- Problem Strain of rotator cuff capsule (72325012) Rotator cuff sprain (840.4) 2018 Problem resolved confirmed [id number]- Problem Severe depression (679040701) severe depression (296.33) 2018 Problem resolved confirmed [id number]- Plan Of Treatment No Information Insurance Providers Payer Name Payer Address Payer Phone Subscriber Number Group Number Insured Name Patient Relationship to Insured Coverage Start Date Coverage End Date [employer] Medicare Replacement [address] [address] [place] [address] [id number] Zoe Parham Self - patient is the insured [place] Medicaid [address] [place] [address] [id number] Zoe Parham Self - patient is the insured Medications Administered Medication Instructions Date of Administration Dosage Notes Phenergan up to 50mg 09/26/2019 25 mg Medical (General) History Medical History History ICD Code Bariatric surgery status Cardiac murmur CVA & TIAs Hypertension Generalized anxiety disorder Iron deficiency anemia Major depression Neurogenic hypotonic bladder Seizures PREVENTIVE HEALTH MAINTENANCE Endoscopy- 12/22/2017 which showed GJ appe ared patent Echocardiogram- 12/06/2017 Mammogram- 11/10/2015 Pap- 2010; partial hystrectomy Sleep study- 2009 CT chest- 08/23/2016 which was normal Eye exam- 2018 Influenza vaccine- 01/17/2020 Hep C screening- 01/09/2019 which was neg ative Pneumococcal vaccine- 2012 Tetanus vaccine- 01/2014 Occult stool- 10/13/2018 which was negati ve x 3 refuses covid vaccination Surgical History Surgery Date(Month/Year) Right great toe 2015 Gastric bypass 2008 Hysterectomy; partial 2009 Cholecystectomy Hospitalization History Reason Date(Month/Year) Stress unit CVA Cardiac issues Child Right great toe Gastric bypass
--- OUTSIDE RECORDS SUMMARY | 2024-10-16 18:12 | XMS_ITS | Encounter Summary ---
Author Organization [facility] Address [address] [facility] [address] Care Team Providers Care Master Cosmetologist Name Role Phone Tristan Leonard MD, Nolan Burks Primary Care Provide r Encounter Details Date Type Department Care Team (Latest Contact Info) Description 05/10/2003 Inpatient Historical [facility] [address] [place] [address] Richard Allred III, MD NO ADDRESS [place] FILE Tom [place] [address] [place] [address] BIPOLAR AFFECTIVE NOS (CMS/HCC) (Primary Dx) Social History Tobacco Use Types Packs/Day Years Used Date Smoking Tobacco: Never Assessed Comments Unknown Sex and Gender Information Value Date Recorded Sex Assigned at Not on file 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
--- OUTSIDE RECORDS SUMMARY | 2024-10-16 18:12 | XMS_ITS | Encounter Summary ---
Author Organization [facility] Address [address] [place] [address] Care Team Providers Care Supervisor Prep Name Role Phone Tristan Leonard MD, Nolan Burks Primary Care Provide r Encounter Details Date Type Department Care Team (Latest Contact Info) Description 02/20/2004 Outpatient [facility] Oral and Maxillo Surgery- [address] [place] [address] Nicho Espinosa, DDS [address] [place] [phone] Tooth eruption disturb (Primary Dx) Social History Tobacco Use Types Packs/Day Years Used Date Smoking Tobacco: Never Assessed Comments Unknown Sex and Gender Information Value Date Recorded Sex Assigned at Not on file 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
--- OUTSIDE RECORDS SUMMARY | 2024-10-16 18:12 | XMS_ITS | Clinical Summary ---
Author Organization [facility] Address [address] [place] [address] Care Team Providers Care Procedures Analyst Name Role Phone Unavailable Primary Care Provider Unavailabl e Allergies Active Allergy Reactions Criticality Noted Date Comments Gabapentin Neutropenia Medium 01/06/2016 Lamotrigine Rash Medium 10/03/2011 Meperidine (Pf) Hallucination Medium 10/03/2011 Pregabalin Shortness of Breath/Wheezing High 12/05/2015 Unclassified Drug Rash,Swelling High 12/17/2015 Iron infusions Medications cetirizine (ZYRTEC) 10 mg Oral tablet Take 10 mg by mouth daily. Active omeprazole (PriLOSEC) 20 mg Capsule, Delayed Release(E.C.) Take 20 mg by mouth 2 times daily. Active desvenlafaxine (PRISTIQ) 100 mg Extended Release 24 hour tablet Take 100 mg by mouth daily with breakfast. Active DOCUSATE SODIUM (DOC-Q-LACE ORAL) Take two capsules by mouth in the morning and two capsules in the evening. . Active cyanocobalamin (VITAMIN B-12) 500 mcg tablet Take 500 mcg by mouth daily. Active calcium carbonate (CALTRATE) 600 mg (1,500 mg) Tablet Take by mouth 3 times daily with meals. Active hydrOXYzine HCl (ATARAX) 25 mg tablet Take 25 mg by mouth 4 times daily. 09/03/2016 Active divalproex (DEPAKOTE ER) 500 mg Extended Release 24 hour tablet Take 1 Tablet (500 mg) by mouth 2 times daily Must make an appt in November 2016 to continue scripts.. 60 Tablet 11/19/2016 Active Active Problems Problem Noted Date Diagnosed Date Complicated migraine Resolved Problems Problem Noted Date Diagnosed Date Resolved Date Right sided weakness 12/06/2015 016 Intractable migraine with status migrainosus 12/08/2015 Abnormal gait 01/06/2016 Family History Medical History Relation Name Comments [...] Years Used Date Smoking Tobacco: Some Days E-Cigarette/M ist Inhalation Device Smokeless Tobacco: Never Alcohol Use Standard Drinks/Week Comments Yes 0 (1 standard drink = 0.6 oz pur e alcohol) rarely Comments No Sex and Gender Information Value Date Recorded Sex Assigned at Not on file 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 Gender Identity Not on file Sexual Orientation Not on file Occupation Industry Job Start Date Job End Date Not on file Not on file Not on file Not on file Last Filed Vital Signs Vital Sign Reading Time Taken Comments Blood Pressure 103/68 01/06/2016 7:58 AM CDT Pulse 82 01/06/2016 7:58 AM CDT Temperature 36.9 C (98.4 F) 12/08/2015 11:13 AM CDT Respiratory Rate 18 12/08/2015 11:1 3 AM CDT Oxygen Saturation 96% 12/17/2015 2:48 PM CDT Inhaled Oxygen Concentration - - Weight 66.6 kg (146 lb 12.8 oz) 01/06/2016 7:58 AM CDT Height 165.1 cm (5' 5 ) 01/06/2016 7:58 AM CDT Body Mass Index 24.43 01/06/2016 7:58 AM CDT Plan of Treatment Health Maintenance Due Date Last Done Comments DTAP/TDAP/TD VACCINES (1 - Tdap) 1997 HEPATITIS B VACCINES (1 of 3 - 19+ 3-dose series) 1997 HPV/Cotest (21-29) 06/17/1999 CERVICAL CANCER SCREENING 2008 HPV/Cotest (30-65) 2008 PAP SMEAR 2008 BREAST CANCER SCREENING 2018 11/10/2015 COLORECTAL SCREENING 06/17/2023 Colorectal Cancer Screening 06/17/2023 FIT-DNA Q 3 years 06/17/2023 FIT/FOBT Q 1 year 06/17/2023 Flex Sig/CT Colonography Q 5 years 06/17/2023 INFLUENZA VACCINE (#1) 2023 HPV VACCINES Aged Out No longer eligi ble based on patient's age to complete this topic Insurance [place] MED[place]ARE PART A AND B MEDICARE PART A [place] B [place] Advance Directives For more information, please contact: [phone] * Full Code (Latest Code Status on File) Date Activated Date Inactivated Comments 12/06/2015 1:28 AM 12/08/2015 3:03 PM
--- OUTSIDE RECORDS SUMMARY | 2024-10-16 18:12 | XMS_ITS | Encounter Summary ---
Author Organization [facility] Address [address] [place] [address] Care Team Providers Care Lpn Instructor Name Role Phone Tristan Leonard MD, Nolan Burks Primary Care Provide r Encounter Details Date Type Department Care Team (Late st Contact Info) Description 03/04/2004 Inpatient Historical [facility] [address] [place] [phone] Renetta Hong MD [address] [id number] BIPOLAR DISORDERS NEC (CMS/[facility]) (Primary Dx) Social History Tobacco Use Types Packs/Day Years Used Date Smoking Tobacco: Never Assessed Comments Unknown Sex and Gender Information Value Date Recorded Sex Assigned at Not on file 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
--- OUTSIDE RECORDS SUMMARY | 2024-10-16 18:12 | XMS_ITS | Encounter Summary ---
Author Organization [facility] Address [address] [place] [address] Care Team Providers Care Sales Development Associate Name Role Phone Tristan Leonard MD, Nolan Burks Primary Care Provide r Encounter Details Date Type Department Care Team (Latest Contact Info) Description 11/17/2004 Outpatient Historical [facility] Pain Management Procedures [address] [place] [address] Andrea Evans MD NO ADDRESS ON FILE LUMBAGO (Primary Dx) Social History Tobacco Use Types Packs/Day Years Used Date Smoking Tobacco: Never Assessed Comments Unknown Sex and Gender Information Value Date Recorded Sex Assigned at Not on file 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
[2024-10-16 18:17] VITALS: PULSE 82; RESP 16; TEMP 37; O2SAT 97
--- NOTE | 2024-10-16 18:24 | XRR_ITS ---
PROCEDURE INFORMATION: Exam: XR Lumbosacral Spine Exam date and time: 10/16/2024 6:33 PM Age: 44 years old Clinical indication: Low back pain TECHNIQUE: Imaging protocol: Radiologic exam of the lumbosacral spine. Views: 2 or 3 views. COMPARISON: CT abdomen pelvis w con* [id number] 03/19/2024 6:52 PM FINDINGS: Tubes, catheters and devices: Surgical clips overlie the upper abdomen. Bones/joints: Mild degenerative changes at L4-L5 with intervertebral disc space height loss. No acute fracture. Normal alignment. Soft tissues: Unremarkable. XR/XR lumbar spine 2-3V* [id number] IMPRESSION: No acute osseous findings.
--- NOTE | 2024-10-16 18:52 | W.ED.BACK ---
HPI - Back Pain/Injury General: Chief Complaint: Back Pain/Injury Stated Complaint: Lower Left Side Back Pain Time Seen by Provider: 10/16/24 18:09 History of Present Illness: Patient is a pleasant 44-year-old female, presented to the ED due to acute back pain. This happened at 1219 today. Patient was moving multiple blocks (for truck loads according to patient), however not had any issues until she had just picked up her granddaughter that is 1, approximately 25 pounds, and pivoted, then felt a pop in lower midline to left side of her back. She had a fall on the bed with her granddaughter. Self treatment prior to arrival is Tylenol, Zanaflex. Patient's pain is a 10. She has had a similar scenario in the past on the right side, however is more midline right, and was diagnosed with sciatica. She is active, it was just helping her son make desserts where he is a head chef at the country club. Associated symptoms: Deny abdominal pain, chills, fever(s), nausea or vomiting Related Data Home Medications ?Medication ?Instructions ?Recorded ?Confirmed biotin 1,000 mcg chewable tablet 1,000 mcg PO DAILY 06/08/19 08/22/24 cetirizine 10 mg capsule (All Day 10 mg PO DAILY 06/08/19 08/22/24 Allergy (cetirizine)) cholecalciferol (vitamin D3) 125 5,000 unit PO DAILY 06/08/19 08/22/24 mcg (5,000 unit) disintegrating tablet ferrous sulfate 325 mg (65 mg 325 mg PO DAILY 06/08/19 08/22/24 iron) tablet lysine 500 mg tablet (L-Lysine) 500 mg PO DAILY 06/08/19 08/22/24 mecobalamin (vitamin B12) 5,000 5,000 mcg PO DAILY 06/08/19 08/22/24 mcg disintegrating tablet acetaminophen 325 mg tablet 325 mg PO QID PRN Pain 08/14/19 08/22/24 (Tylenol) amitriptyline 25 mg tablet 75 mg PO DAILY 04/21/20 08/22/24 zinc acetate 25 mg (zinc) capsule 25 mg PO DAILY 01/12/21 08/22/24 (Galzin) aspirin 81 mg tablet 81 mg PO DAILY 10/26/22 08/22/24 rimegepant 75 mg disintegrating 75 mg PO PRN PRN Nausea 10/26/22 08/22/24 [facility] diclofenac sodium 1 % topical gel 4 g topical QID 04/26/24 08/22/24 valacyclovir 1 gram tablet 1,000 mg PO TID 04/26/24 08/22/24 Previous Rx's ?Medication ?Instructions ?Recorded tennis elbow strap #1 ea 03/18/23 tizanidine 4 mg tablet 4 mg PO BID PRN muscle spasticity 06/13/23 #60 tabs albuterol sulfate 90 mcg/actuation 2 puff inhalation 6XD PRN 06/07/24 aerosol inhaler (Ventolin HFA) shortness of breath or wheezing #8.5 grams atorvastatin 80 mg tablet See Rx Instructions .Route 08/22/24 .COMPLEX #90 tabs oxybutynin chloride 10 mg 10 mg PO DAILY #90 tabs 08/22/24 tablet,extended release 24 hr pantoprazole 40 mg tablet,delayed See Rx Instructions .Route 08/22/24 release .COMPLEX #180 tabs sertraline 50 mg tablet 50 mg PO DAILY #90 tabs 08/22/24 valacyclovir 1 gram tablet 2,000 mg (2 x 1 gram) PO BID PRN 08/22/24 (Valtrex) cold sores 1 day #30 tabs levothyroxine 25 mcg tablet See Rx Instructions .Route 09/17/24 .COMPLEX #90 tabs methylprednisolone 4 mg tablets in See Rx Instructions PO .COMPLEX 10/16/24 a dose pack (Medrol (Binh)) #21 ea tizanidine 4 mg capsule 4 mg PO Q8H PRN muscle spasticity 10/16/24 #30 caps Allergies Allergy/AdvReac Type Severity Reaction Status Date / Time gabapentin Allergy ADR-Hyperte Verified 08/22/24 13:22 nsion lamotrigine (From Lamictal) Allergy ALGY-Rash Verified 08/22/24 13:22 meperidine (From Demerol) Allergy ADR-Halluci Verified 08/22/24 13:22 nating morphine Allergy ADR-Halluci Verified 08/22/24 13:22 nating tomato Allergy ALGY-Bliste Verified 08/22/24 13:22 r topiramate (From Topamax) Allergy ADR-Faintin Verified 08/22/24 13:22 g Review of Systems Const: Denies: fever(s) or chills Eyes: Denies: change in vision or blind spots ENMT: Denies: throat pain Card: Denies: chest pain or palpitations Resp: Denies: dyspnea or non-productive cough GI: Denies: abdominal pain, nausea or vomiting : Denies: flank pain or difficulty voiding Musc: Reports: back pain; Denies: neck pain, extremity pain, extremity swelling or muscle weakness Skin/Breast: Denies: rash or pruritus Neuro: Denies: headache(s) or numbness in extremities Psych: Denies: anxiety or depression PFSH ED PFSH: Medical History History of pacemaker Pacemaker H/O coronary angiogram S/P transesophageal echocardiogram (LUCIA) Old cerebrovascular accident (CVA) without late effect SOB (shortness of breath) Tachycardia Post-traumatic stress disorder, chronic Major depressive disorder, recurrent severe without psychotic features Dyslipidemia Adjustment disorder, unspecified Post-traumatic stress disorder, chronic Surgical History History of esophagogastroduodenoscopy (EGD) H/O gastric bypass History of cholecystectomy Hx of tonsillectomy H/O foot surgery History of hysterectomy S/P spinal surgery History of loop recorder Family History Other Diabetes Stroke Social History Smoking and tobacco/nicotine status: current every day tobacco/nicotine user (vapes) cigarettes Packs smoked per day: 1 Years cigarettes smoked: 1 [ Other cigarette details: Used vape for 8 Years] Second hand smoke exposure: Yes Alcohol intake: current Alcohol intake frequency: holidays/special occasions only Substance/Drug Use: never Lives independently: Yes Household members: significant other Marital status: Current occupational status: disabled Do you think of yourself as: Lesbian/Malik/Homosexual Current gender identity: Female Physical Exam Const: COMMON NORMALS: no acute distress, average body habitus and patient oriented x3 GENERAL APPEARANCE: well kempt HENMT: COMMON NORMALS: normocephalic and atraumatic HEAD & SCALP: normocephalic and atraumatic Neck/C-Spine: COMMON NORMALS: full ROM and no lymphadenopathy Lymph: LYMPHATIC: no lymphadenopathy noted Chest: COMMONS NORMALS: normal inspection of the chest and normal palpation of entire chest wall Cardio: COMMON NORMALS: regular rate and regular rhythm RATE: regular rate RHYTHM: regular rhythm GI: COMMON NORMALS: Normal to inspection, nondistended, normoactive bowel sounds present and Soft to palpation PALPATION: Yes Soft to palpation : COMMON NORMALS: Yes no CVA tenderness BLADDER/KIDNEY EXAM: Yes no CVA tenderness Back/Pelvis: COMMON NORMALS: no CVA tenderness THORACIC SPINE/UPPER BACK: Yes normal to inspection LUMBAR SPINE/LOWER BACK: Yes lumbar spinal tenderness Lumbar spinal tenderness location: L5, Yes paraspinal muscle spasm and Yes straight leg raise positive right Straight leg raise positive details right: at 30 degrees Extremity: COMMON NORMALS: normal to inspection, full ROM and capillary refill normal Neuro: COMMON NORMALS: patient oriented x3 Psych: COMMON NORMALS: cooperative APPEARANCE: Yes well kempt Course Vital Signs: Vital signs: Vital Signs Temperature 98.6 F 10/16/24 18:17 Pulse Rate 75 10/16/24 21:00 Respiratory Rate 16 10/16/24 21:00 Blood Pressure 138/89 10/16/24 21:00 Pulse Oximetry 98 10/16/24 21:00 Oxygen Delivery Me thod Room Air 10/16/24 18:17 MDM - Back Pain/Injury Medical Decision Making Patient is a 44-year-old female with acute back pain. She has had a previous history of lumbar nerve ablation, according to patient, cannot find provider note, presents with acute back pain that she felt pivoting, with loss of strength. She has not had any bowel, bladder incontinence, groin/saddle anesthesia. X-ray is pending. Will await final review. In the interim, we will give Toradol, Norflex and reassess. Labs Radiology Impressions Lumbar Spine X-Ray 10/16/24 18:24 IMPRESSION: No acute osseous findings. Lumbar Spine CT 10/16/24 19:58 IMPRESSION: 1. No acute osseous findings. 2. Lumbar spondylosis most pronounced at L4-L5, similar to prior. Laboratory Results Urine Color Yellow (Yellow) 10/16/24 19:12 Urine Appearance Clear (CLEAR) 10/16/24 19:12 Urine pH 7.5 (5-7) 10/16/24 19:12 Ur Specific [place] 1.006 (1.005-1.030) 10/16/24 19:12 Urine Protein Negative (Negative) 10/16/24 19:12 Urine Glucose (UA) Negative (Normal) 10/16/24 19:12 Urine Ketones Negative (Negative) 10/16/24 19:12 Urine Blood Negative (Negative) 10/16/24 19:12 Urine Nitrate Negative (Negative) 10/16/24 19:12 Urine Bilirubin Negative (Negative) 10/16/24 19:12 Urine Urobilinogen 0.2 mg/dL (Negative) 10/16/24 19:12 Ur Leukocyte Esterase Negative (Negative) 10/16/24 19:12 Urine RBC 0-2 /hpf (0-2) 10/16/24 19:12 Urine WBC 0-5 /hpf (0-5) 10/16/24 19:12 Ur Squamous Epith Cells 0-5 /hpf (0-5) 10/16/24 19:12 Amorphous Sediment Not Reportable 10/16/24 19:12 Urine Bacteria None seen /hpf (NONE) 10/16/24 19:12 Hyaline Casts 0-4 /lpf H 10/16/24 19:12 All radiology interpretation(s) finalized by discharge ED provider radiology interpretation(s): xray-no acute Discharge Plan Discharge Patient Disposition: Home Clinical Impression: Sciatica Qualifiers: Laterality: left Qualified Code(s): M54.32 - Sciatica, left side Strain of lumbar region Qualifiers: Encounter type: initial encounter Qualified Code(s): S39.012A - Strain of muscle, fascia and tendon of lower back, initial encounter Condition: Stable Prescriptions: New methylprednisolone [Medrol (Binh)] 4 mg tablets,dose pack See Rx Instructions .ROUTE .COMPLEX Qty: 21 0RF Rx Instructions: for 6 days tizanidine 4 mg capsule 4 mg PO Q8H PRN (Reason: muscle spasticity) Qty: 30 0RF No Action amitriptyline 25 mg tablet 75 mg PO DAILY Patient Comments: neurology at [facility] 25 mg (zinc) capsule 25 mg PO DAILY mecobalamin (vitamin B12) 5,000 mcg tablet,disintegrating 5,000 mcg PO DAILY All Day Allergy (cetirizine) 10 mg capsule 10 mg PO DAILY biotin 1,000 mcg tablet,chewable 1,000 mcg PO DAILY ferrous sulfate 325 mg (65 mg iron) tablet 325 mg PO DAILY lysine [L-Lysine] 500 mg tablet 500 mg PO DAILY cholecalciferol (vitamin D3) 5,000 unit tablet,disintegrating 5,000 unit PO DAILY (DME) tennis elbow strap See Rx Instructions .Route .MEDSUPPLY Qty: 1 0RF Rx Instructions: As directed albuterol sulfate [Ventolin HFA] 90 mcg/actuation HFA aerosol inhaler 2 puff inhalation 6XD PRN (Reason: shortness of breath or wheezing) Qty: 8.5 3RF pantoprazole 40 mg tablet,delayed release (DR/EC) See Rx Instructions .ROUTE .COMPLEX Qty: 180 1RF Dose Instruction: TAKE ONE TABLET BY MOUTH TWICE DAILY Rx Instructions: TAKE ONE TABLET BY MOUTH TWICE DAILY atorvastatin 80 mg tablet See Rx Instructions .ROUTE .COMPLEX Qty: 90 1RF Dose Instruction: TAKE ONE TABLET BY MOUTH DAILY Rx Instructions: TAKE ONE TABLET BY MOUTH DAILY oxybutynin chloride 10 mg tablet extended release 24hr 10 mg PO DAILY Qty: 90 1RF Rx Instructions: TAKE 1 TABLET BY MOUTH DAILY sertraline 50 mg tablet 50 mg PO DAILY Qty: 90 1RF Rx Instructions: TAKE ONE TABLET BY MOUTH DAILY valacyclovir [Valtrex] 1 gram tablet 2,000 mg PO BID PRN (Reason: cold sores) 1 Days Qty: 30 2RF Rx Instructions: 2,000mg BID on day of onset for 2 doses tizanidine 4 mg tablet 4 mg PO BID PRN (Reason: muscle spasticity) Qty: 60 0RF levothyroxine 25 mcg tablet See Rx Instructions .ROUTE .COMPLEX Qty: 90 0RF Dose Instruction: TAKE ONE TABLET BY MOUTH EVERY MORNING ON a empty stomach Rx Instructions: TAKE ONE TABLET BY MOUTH EVERY MORNING ON a empty stomach acetaminophen [Tylenol] 325 mg Tablet 325 mg PO QID PRN (Reason: Pain) aspirin 81 mg Tablet 81 mg PO DAILY Nurtec ODT 75 mg Tablet,Disintegrating 75 mg PO PRN PRN (Reason: Nausea) valacyclovir 1 gram tablet 1,000 mg PO TID Rx Instructions: TAKE ONE TABLET BY MOUTH THREE TIMES DAILY FOR cold SORES FOR 7 days diclofenac sodium 1 % gel 4 g topical QID Rx Instructions: APPLY 4 grams topically FOUR TIMES DAILY; APPLY TO single knee, ankle, foot, FOR foot includes sole/toes/top of food Discharge Orders: Discharge ED (Routine); Ordered 10/16/24 Ordered By: Kiki Lockwood Referrals: Graciela Raya FNP [Primary Care Provider, Family Practice] Discharge Diet: Usual diet Discharge Activity: Limit activity as instructed Patient Instructions: Acute Low Back Pain (ED), Opioid Safety, Pain Management, Patient Portal & [place] Instructions Activity Restrictions/Additional Instructions: No lifting greater than a 1/2 gallon of milk Follow-up with primary care physician regarding today's visit. You will need further care through primary care. 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
[2024-10-16 19:01] VITALS: BP 128/82; O2SAT 96
[2024-10-16] MEDS: orphenadrine 30 mg/mL Inj 2 mL 60 MG IM (19:17)
[2024-10-16 19:35] LABS: Glucose Urine UA Negative (Normal); Nitrate Urine Negative (Negative); Specific Gravity, Urine 1.006 (1.005-1.030)
[2024-10-16 19:37] LABS: Add Urine Microscopic? YES
--- NOTE | 2024-10-16 19:58 | CTR_ITS ---
PROCEDURE INFORMATION: Exam: CT Lumbar Spine Without Contrast Exam date and time: 10/16/2024 8:11 PM Age: 44 years old Clinical indication: Injury or trauma; Other: Lifting; Additional info: Injury, severe, continued pain despite treatment TECHNIQUE: Imaging protocol: Computed tomography of the lumbar spine without contrast. Radiation optimization: All CT scans at this facility use at least one of these dose optimization techniques: automated exposure control; mA and/or kV adjustment per patient size (includes targeted exams where dose is matched to clinical indication); or iterative reconstruction. COMPARISON: 1. MR lumbar spine wo con* [id number] 06/16/2022 9:57 AM 2. CR (PELVIS, ) 10/16/2024 6:33 PM RADIATION DOSE METRICS: Total DLP (mGy-cm): 850.1 FINDINGS: Bones/joints: No acute fracture. Normal alignment. Mild disc bulge again seen at L3-L4, L4-L5 and L5-S1. Mild central canal stenosis at L4-L5. Mild bilateral facet arthropathy in the lower lumbar spine. Diaphragm: Small sliding hiatal hernia. Gallbladder and biliary ducts: Status post cholecystectomy. Stomach and bowel: Postsurgical changes along the stomach. Soft tissues: Unremarkable. CT/CT lumbar spine wo con* [id number] IMPRESSION: 1. No acute osseous findings. 2. Lumbar spondylosis most pronounced at L4-L5, similar to prior.
[2024-10-16] MEDS: HYDROmorphone 0.5 MG/0.5 ML INJ 1 MG IM (20:19)
[2024-10-16 21:00] VITALS: BP 138/89; PULSE 75; RESP 16; O2SAT 98
== END 2024-10-16 21:01 | disposition home or self-care (01) ==
PROVIDERS: Emergency Provider Physician Assistant; PCP Nurse Practitioner Family
DX: M54.32 Sciatica, left side (principal); S39.012A Strain of muscle, fascia and tendon of lower back, initial encounter; Z79.82 Long term (current) use of aspirin; F17.290 Nicotine dependence, other tobacco product, uncomplicated; E78.5 Hyperlipidemia, unspecified; Z95.0 Presence of cardiac pacemaker
CPT/HCPCS: 72100; 72131; 81001; 96372; 99284; J1100; J1171; J1885; J2360

== ENCOUNTER 2025-03-19 13:22 | Emergency (ER) | payer MEDICARE, MEDICAID, SELFPAY ==
[2025-03-19 13:31] VITALS: PULSE 100; RESP 16; O2SAT 100
[2025-03-19 13:35] VITALS: BP 143/93; PULSE 92; RESP 16; TEMP 36.7; O2SAT 100
--- NOTE | 2025-03-19 13:43 | CT_ITS ---
WS: [id number] CT HEAD TECHNIQUE: Noncontrast CT of the head obtained from the skullbase to the vertex. CLINICAL INFORMATION: Symptoms of acute stroke COMPARISON: 2019 DLP: [address] scans at [facility] use at least one of these dose optimization techniques: automated exposure control; mA and/or kV adjustment per patient size (includes targeted exams where dose is matched to clinical indication); or iterative reconstruction. FINDINGS: No evidence of intracranial hemorrhage or mass effect. Ventricular system and basal cisterns are patent. No extra-axial fluid collections. No evidence of mass or mass effect. Normal condon-white differentiation. Paranasal sinuses and mastoid air cells are well aerated. .Normal visualized soft tissues. Incidental slightly low-lying cerebellar tonsils unchanged CT/CT head thrombolytic 23506 IMPRESSION: 1. No evidence of intracranial hemorrhage or mass effect. 2. Chronic infarct with encephalomalacia in the LEFT insula unchanged. 3. No acute intracranial findings. Notified Severo Owens DO at 03/19/2025 1:54 PM.
--- NOTE | 2025-03-19 13:49 | W.ED.NEUROSD ---
HPI - Neuro Symptoms/Deficit General: Chief Complaint: Neuro Symptoms/Deficit Stated Complaint: stroke like symptoms Time Seen by Provider: 03/19/25 13:34 History of Present Illness: 44-year-old female presents emergency room complaining of left arm weakness and numbness. States it began about 20 minutes prior to arrival her arm feels what she describes as heavy she has not had any further symptoms. By the time she arrived here and began to improve already. Patient seen initially shortly after arrival and CT NIH score of 2. Denies any other symptoms. Associated symptoms: Deny chest pain Related Data Home Medications ?Medication ?Instructions ?Recorded ?Confirmed cetirizine 10 mg capsule (All Day 10 mg PO DAILY 06/08/19 03/19/25 Allergy (cetirizine)) cholecalciferol (vitamin D3) 125 5,000 unit PO DAILY 06/08/19 03/19/25 mcg (5,000 unit) disintegrating tablet ferrous sulfate 325 mg (65 mg 325 mg PO DAILY 06/08/19 03/19/25 iron) tablet mecobalamin (vitamin B12) 5,000 5,000 mcg PO DAILY 06/08/19 03/19/25 mcg disintegrating tablet acetaminophen 325 mg tablet 325 mg PO QID PRN Pain 08/14/19 03/19/25 (Tylenol) amitriptyline 25 mg tablet 75 mg PO DAILY 04/21/20 03/19/25 zinc acetate 25 mg (zinc) capsule 25 mg PO DAILY 01/12/21 03/19/25 (Galzin) aspirin 81 mg tablet 81 mg PO DAILY 10/26/22 03/19/25 rimegepant 75 mg disintegrating 75 mg PO PRN PRN Nausea 10/26/22 03/19/25 tablet (Nurtec ODT) diclofenac sodium 1 % topical gel 4 g topical QID 04/26/24 03/19/25 biotin 2,500 mcg capsule 2,500 mcg PO DAILY 03/19/25 03/19/25 Previous Rx's ?Medication ?Instructions ?Recorded tennis elbow strap #1 ea 03/18/23 tizanidine 4 mg tablet 4 mg PO BID PRN muscle spasticity 06/13/23 #60 tabs albuterol sulfate 90 mcg/actuation 2 puff inhalation 6XD PRN 06/07/24 aerosol inhaler (Ventolin HFA) shortness of breath or wheezing #8.5 grams oxybutynin chloride 10 mg 10 mg PO DAILY #90 tabs 08/22/24 tablet,extended release 24 hr pantoprazole 40 mg tablet,delayed See Rx Instructions .Route 08/22/24 release .COMPLEX #180 tabs valacyclovir 1 gram tablet 2,000 mg (2 x 1 gram) PO BID PRN 08/22/24 (Valtrex) cold sores 1 day #30 tabs levothyroxine 25 mcg tablet See Rx Instructions .Route 02/11/25 .COMPLEX #30 tabs sertraline 50 mg tablet 50 mg PO DAILY #30 tabs 02/11/25 atorvastatin 40 mg tablet (Lipitor) 40 mg PO DAILY #30 tabs 03/19/25 clopidogrel 75 mg tablet 75 mg PO DAILY #30 tabs 03/19/25 Allergies Allergy/AdvReac Type Severity Reaction Status Date / Time gabapentin Allergy ADR-Hyperte Verified 08/22/24 13:22 nsion lamotrigine (From Lamictal) Allergy ALGY-Rash Verified 08/22/24 13:22 meperidine (From Demerol) Allergy ADR-Halluci Verified 08/22/24 13:22 nating morphine Allergy ADR-Halluci Verified 08/22/24 13:22 nating tomato Allergy ALGY-Bliste Verified 08/22/24 13:22 r topiramate (From Topamax) Allergy ADR-Faintin Verified 08/22/24 13:22 g Review of Systems Const: Denies: fever(s) or chills Card: Denies: chest pain Resp: Denies: dyspnea GI: Denies: abdominal pain : Denies: dysuria, urinary frequency or urinary urgency Musc: Denies: neck pain or back pain Skin/Breast: Denies: rash PFSH ED PFSH: Medical History History of pacemaker Pacemaker H/O coronary angiogram S/P transesophageal echocardiogram (LUCIA) Old cerebrovascular accident (CVA) without late effect SOB (shortness of breath) Tachycardia Post-traumatic stress disorder, chronic Major depressive disorder, recurrent severe without psychotic features Dyslipidemia Adjustment disorder, unspecified Post-traumatic stress disorder, chronic Surgical History History of esophagogastroduodenoscopy (EGD) H/O gastric bypass History of cholecystectomy Hx of tonsillectomy H/O foot surgery History of hysterectomy S/P spinal surgery History of loop recorder Family History Other Diabetes Stroke Social History Smoking and tobacco/nicotine status: current every day tobacco/nicotine user (vapes) cigarettes Packs smoked per day: 1 Years cigarettes smoked: 1 [ Other cigarette details: Used vape for 8 Years] Second hand smoke exposure: Yes Alcohol intake: current Alcohol intake frequency: holidays/special occasions only Substance/Drug Use: never Lives independently: Yes Household members: significant other Marital status: Current occupational status: disabled Do you think of yourself as: Lesbian/Malik/Homosexual Current gender identity: Female NIH stroke score NIHSS: Level Of Consciousness - 1a: 0 Level Of Consciousness Questions - 1b: Both Correct Level Of Consciousness Commands - 1c: Both Correct Best Gaze - 2: Normal Visual [place] - 3: No Visual Loss Facial Palsy - 4: Minor Paralysis Motor Arm Right - 5: No Drift Motor Arm Left - 5: No Drift Motor Leg Right - 6: No Drift Motor Leg Left - 6: No Drift Limb Ataxia - 7: Present In One Limb Sensory - 8: Normal Best Language - 9: No Aphasia Dysarthia - 10: Normal Extinction And Inattention - 11: 0 Score: Total Score: 2 Physical Exam Const: COMMON NORMALS: no acute distress GENERAL APPEARANCE: cooperative and comfortable ORIENTATION/CONSCIOUSNESS: Yes awake, Yes oriented to person, Yes oriented to place and Yes oriented to time HENMT: COMMON NORMALS: normocephalic, atraumatic and hearing grossly normal bilaterally HEAD & SCALP: normocephalic and atraumatic Resp: COMMON NORMALS: normal respiratory effort, No retractions, No use of accessory muscles and clear to auscultation bilaterally AUSCULTATION: clear to auscultation bilaterally Cardio: COMMON NORMALS: regular rate, regular rhythm and No murmurs present (Cardio) RATE: regular rate RHYTHM: regular rhythm GI: COMMON NORMALS: Soft to palpation and No hepatosplenomegaly present AUSCULTATION: Yes normoactive bowel sounds PALPATION: Yes Soft to palpation, No Tenderness to palpation present (GI), No Guarding due to palpation present (GI) and Yes No hepatosplenomegaly present Extremity: COMMON NORMALS: normal to inspection, capillary refill normal, no clubbing, cyanosis or edema, no calf tenderness and no pedal edema Neuro: SENSORIUM/ORIENTATION: Yes oriented to person, Yes oriented to place and Yes oriented to time Skin: COMMON NORMALS: no rashes or lesions noted GENERAL SKIN EXAM: no rashes or lesions noted Course Vital Signs: Vital signs: Vital Signs Temperature 98.0 F 03/19/25 13:35 Pulse Rate 87 03/19/25 16:05 Respiratory Rate 20 H 03/19/25 14:35 Blood Pressure 146/97 03/19/25 16:05 Pulse Oximetry 97 03/19/25 16:05 Oxygen Delivery Me thod Room Air 03/19/25 14:35 MDM - Neuro Symptoms/Deficit Medical Decision Making Medical decision making Social determinants: None I reviewed the patient's medical record. I reviewed the patient's current home meds. Alternate historians: None Differential diagnosis: TIA versus stroke Lab Review: CBC normal PT PTT normal chemistries normal. Urine unremarkable urine drug screen negative Imaging: CT of the head no acute findings and no acute intracranial bleed Assessment of risk Level of risk: Moderate Hospitalization considerations: Consideration for hospitalization pending results of workup and reevaluation Reexamination: Repeat exam symptoms have resolved. Patient is back to baseline Assessment and plan: Patient presents with a borderline NIH by my evaluation she has an NIH of 2. A consult to Dr. Mckeon who is on-call for stroke she came and seen the patient she concurs with exam patient's symptoms have been steadily improving. Based on my initial exam I did not feel that TNKase was warranted. Patient was demonstrating improvement at the low NIH. I asked Dr. Mckeon to consult she seen the patient and agreed. We monitored patient for a time she is completely back to her baseline we will discharge her home on aspirin Plavix and high-dose statin. Refer patient for follow-up to neurology clinic. Lab Data 03/19/25 13:50 03/19/25 13:[address] 03/19/25 13:43 IMPRESSION: 1. No evidence of intracranial hemorrhage or mass effect. 2. Chronic infarct with encephalomalacia in the LEFT insula unchanged. 3. No acute intracranial findings. Notified Severo Owens DO at 03/19/2025 1:54 PM. Laboratory Results WBC 7.23 10^3/uL (3.29-11.43) 03/19/25 13:50 RBC 4.75 10^6/uL (3.85-5.65) 03/19/25 13:50 Hgb 14.60 g/dL (11.27-16.99) 03/19/25 13:50 Hct 42.2 % (36-47) 03/19/25 13:50 MCV 88.8 fl (85-98) 03/19/25 13:50 MCH 30.7 pg (27-33) 03/19/25 13:50 MCHC 34.6 g/dL (30-55) 03/19/25 13:50 RDW 11.6 % (12.1-15.1) L 03/19/25 13:50 Plt Count 247 10^3/cmm (157-399) 03/19/25 13:50 MPV 9.1 fL (7.4-10.4) 03/19/25 13:50 Neut % (Auto) 61.2 % 03/19/25 13:50 Lymph % (Auto) 30.4 % 03/19/25 13:50 [place] % (Auto) 6.4 % 03/19/25 13:50 Eos % (Auto) 0.8 % 03/19/25 13:50 Baso % (Auto) 1.1 % 03/19/25 13:50 Neut # (Auto) 4.42 10^3/uL (1.8-7.7) 03/19/25 13:50 Lymph # (Auto) 2.2 10^3/uL (0.8-4.8) 03/19/25 13:50 [place] # (Auto) 0.5 10^3/uL (0.2-0.9) 03/19/25 13:50 Eos # (Auto) 0.1 10^3/uL (0.0-0.8) 03/19/25 13:50 Baso # (Auto) 0.1 10^3/uL (0.0-0.1) 03/19/25 13:50 Nucleated RBC % (auto) 0 % 03/19/25 13:50 Nucleated RBCs # 0.0 /100WBC 03/19/25 13:50 PT 12.70 SECONDS (12.1-14.9) 03/19/25 13:50 INR 0.89 (0.8-1.2) 03/19/25 13:50 APTT 25.5 SECONDS (23.9-36.7) 03/19/25 13:50 Sodium 137 mmol/L (136-145) 03/19/25 13:50 Potassium 3.7 mmol/L (3.5-5.1) 03/19/25 13:50 Chloride 100 mmol/L (98-107) 03/19/25 13:50 Carbon Dioxide 23 mmol/L (22-29) 03/19/25 13:50 Anion Gap 17.7 (5-19) 03/19/25 13:50 BUN 14 mg/dL (6-20) 03/19/25 13:50 Creatinine 0.7 mg/dL (0.5-0.9) 03/19/25 13:50 GFR Calculation 90.1 mL/min (90-130) 03/19/25 13:50 Glucose 105 mg/dL (65-115) 03/19/25 13:50 POC Glucose 85 mg/dL (70-110) 03/19/25 13:43 Calculated Osmolality 285 mOsm/kg (285-295) 03/19/25 13:50 Calcium 9.7 mg/dL (8.5-10.5) 03/19/25 13:50 Total Bilirubin 0.4 mg/dL (0.15-1.2) 03/19/25 13:50 AST 17 U/L (0-32) 03/19/25 13:50 ALT 14 U/L (0-33) 03/19/25 13:50 Alkaline Phosphatase 77 U/L (35-105) 03/19/25 13:50 Total Protein 7.1 g/dL (6.6-8.7) 03/19/25 13:50 Albumin 4.6 g/dL (3.5-5.2) 03/19/25 13:50 Globulin 2.5 g/dL (1.3-4.6) 03/19/25 13:50 Urine Color Yellow (Yellow) 03/19/25 14:14 Urine Appearance Clear (CLEAR) 03/19/25 14:14 Urine pH 6.0 (5-7) 03/19/25 14:14 Ur Specific [place] 1.003 (1.005-1.030) L 03/19/25 14:14 Urine Protein Negative (Negative) 03/19/25 14:14 Urine Glucose (UA) Negative (Normal) 03/19/25 14:14 Urine Ketones Negative (Negative) 03/19/25 14:14 Urine Blood Negative (Negative) 03/19/25 14:14 Urine Nitrate Negative (Negative) 03/19/25 14:14 Urine Bilirubin Negative (Negative) 03/19/25 14:14 Urine Urobilinogen 0.2 mg/dL (Negative) 03/19/25 14:14 Ur Leukocyte Esterase Negative (Negative) 03/19/25 14:14 Urine RBC 0-2 /hpf (0-2) 03/19/25 14:14 Urine WBC 0-5 /hpf (0-5) 03/19/25 14:14 Ur Squamous Epith Cells 0-5 /hpf (0-5) 03/19/25 14:14 Amorphous Sediment Not Reportable 03/19/25 14:14 Urine Bacteria None seen /hpf (NONE) 03/19/25 14:14 Hyaline Casts 0-4 /lpf H 03/19/25 14:14 Urine Opiates Screen Negative ng/mL (Negative) 03/19/25 14:14 Ur Barbiturates Screen Negative ng/mL (Negative) 03/19/25 14:14 Ur Phencyclidine Scrn Negative ng/mL (Negative) 03/19/25 14:14 Ur Amphetamines Screen Negative ng/mL (Negative) 03/19/25 14:14 U Benzodiazepines Scrn Negative ng/mL (Negative) 03/19/25 14:14 Urine Cocaine Screen Negative ng/mL (Negative) 03/19/25 14:14 U Marijuana (THC) Screen Negative ng/mL (Negative) 03/19/25 14:14 All radiology interpretation(s) finalized by discharge Discharge Plan Discharge Patient Disposition: Home Clinical Impression: TIA (transient ischemic attack) Condition: Stable Prescriptions: New atorvastatin [Lipitor] 40 mg tablet 40 mg PO DAILY Qty: 30 0RF clopidogrel 75 mg tablet 75 mg PO DAILY Qty: 30 0RF No Action amitriptyline 25 mg tablet 75 mg PO DAILY Patient Comments: neurology at [place] Galzin 25 mg (zinc) capsule 25 mg PO DAILY mecobalamin (vitamin B12) 5,000 mcg tablet,disintegrating 5,000 mcg PO DAILY All Day Allergy (cetirizine) 10 mg capsule 10 mg PO DAILY ferrous sulfate 325 mg (65 mg iron) tablet 325 mg PO DAILY cholecalciferol (vitamin D3) 5,000 unit tablet,disintegrating 5,000 unit PO DAILY (DME) tennis elbow strap See Rx Instructions .Route .MEDSUPPLY Qty: 1 0RF Rx Instructions: As directed albuterol sulfate [Ventolin HFA] 90 mcg/actuation HFA aerosol inhaler 2 puff inhalation 6XD PRN (Reason: shortness of breath or wheezing) Qty: 8.5 3RF pantoprazole 40 mg tablet,delayed release (DR/EC) See Rx Instructions .ROUTE .COMPLEX Qty: 180 1RF Dose Instruction: TAKE ONE TABLET BY MOUTH TWICE DAILY Rx Instructions: TAKE ONE TABLET BY MOUTH TWICE DAILY oxybutynin chloride 10 mg tablet extended release 24hr 10 mg PO DAILY Qty: 90 1RF Rx Instructions: TAKE 1 TABLET BY MOUTH DAILY valacyclovir [Valtrex] 1 gram tablet 2,000 mg PO BID PRN (Reason: cold sores) 1 Days Qty: 30 2RF Rx Instructions: 2,000mg BID on day of onset for 2 doses tizanidine 4 mg tablet 4 mg PO BID PRN (Reason: muscle spasticity) Qty: 60 0RF levothyroxine 25 mcg tablet See Rx Instructions .ROUTE .COMPLEX Qty: 30 0RF Dose Instruction: TAKE ONE TABLET BY MOUTH EVERY MORNING ON a empty stomach Rx Instructions: TAKE ONE TABLET BY MOUTH EVERY MORNING ON a empty stomach sertraline 50 mg tablet 50 mg PO DAILY Qty: 30 0RF Rx Instructions: TAKE ONE TABLET BY MOUTH DAILY acetaminophen [Tylenol] 325 mg Tablet 325 mg PO QID PRN (Reason: Pain) aspirin 81 mg Tablet 81 mg PO DAILY Nurtec ODT 75 mg Tablet,Disintegrating 75 mg PO PRN PRN (Reason: Nausea) diclofenac sodium 1 % gel 4 g topical QID Rx Instructions: APPLY 4 grams topically FOUR TIMES DAILY; APPLY TO single knee, ankle, foot, FOR foot includes sole/toes/top of food biotin 2,500 mcg Capsule 2,500 mcg PO DAILY Discharge Orders: Discharge ED (Routine); Ordered 03/19/25 Ordered By: Severo Owens Referrals: Graciela Raya FNP [Primary Care Provider, Family Practice] Discharge Diet: Usual diet Discharge Activity: Resume usual activity Patient Instructions: Opioid Safety, Pain Management, Patient Portal & Antwan Instructions Activity Restrictions/Additional Instructions: [facility]. It is very important that you follow up as instructed or that you return to the Emergency Department should you have concerns or if your condition changes or worsens in any way. Emergency department visits are focused on emergent conditions, in some cases you may require further evaluation on an outpatient basis. You are seen in the emergency room with concern about a stroke. On exam you had some symptoms when you first arrived however there were noted to be improving and during the time you are here with a completely resolved CT of your head was negative. Dr. Mckeon the neurologist on-call seen you and did not advise any interventions. Since your symptoms are completely resolved you can be discharged home we recommend that you continue aspirin daily also start clopidogrel 75 mg daily and atorvastatin 40 mg daily follow-up with your neurologist within the next 2 weeks. (Please note that included in your discharge packet is information concerning opioid safety and pain management. This information is given to all patients were discharged from the ER regardless of their discharge diagnosis or the medicines they usually take or are prescribed.) Headache and Print Language: Arabic Coding Level of Care Code ED Hr Representative for Fede Wilson
[2025-03-19 13:58] LABS: Hematocrit 42.2 % (36-47); Hemoglobin 14.60 g/dL (11.27-16.99); Mean Corpuscular HGB Conc 34.6 g/dL (30-55); Mean Corpuscular Hemoglobin 30.7 pg (27-33); Mean Corpuscular Volume 88.8 fl (85-98); Nucleated Red Blood Cells % 0 %; Platelet Count 247 10^3/cmm (157-399); Red Blood Count 4.75 10^6/uL (3.85-5.65); White Blood Count 7.23 10^3/uL (3.29-11.43)
--- NOTE | 2025-03-19 14:11 | ECG_ITS ---
[email or web address]: 2025-[facility]19 Pat Name: Zoe Parham Department: Room: Gender: Female Hvac Tech: : [id number] Requested By: Severo Gomes Order Number: [id number] Elaine MD: Torri Angel M.D. Measurements Intervals [place] Rate: 87 P: 21 MT: 156 QRS: 26 QRSD: 89 T: 43 QT: 358 QTc: 432 Interpretive Statements SINUS RHYTHM Compared to ECG 09/19/2022 18:04:45 No significant changes Electronically Signed On 03-19-2025 18:56:56 SPINE SUPERVISOR by Torri Angel M.D. [id number]
[2025-03-19 14:16] LABS: INR 0.89 (0.8-1.2); Prothrombin Time 12.70 SECONDS (12.1-14.9)
[2025-03-19 14:17] LABS: Partial Thromboplastin Time 25.5 SECONDS (23.9-36.7)
[2025-03-19 14:19] LABS: Alanine Aminotransferase 14 U/L (0-33); Albumin Level 4.6 g/dL (3.5-5.2); Alkaline Phosphatase 77 U/L (35-105); Anion Gap 17.7 (5-19); Aspartate Amino Transferase 17 U/L (0-32); Blood Urea Nitrogen 14 mg/dL (6-20); Calcium 9.7 mg/dL (8.5-10.5); Carbon Dioxide 23 mmol/L (22-29); Chloride 100 mmol/L (98-107); Globulin 2.5 g/dL (1.3-4.6); Glucose 105 mg/dL (65-115); Osmolality Calculated 285 mOsm/kg (285-295); Potassium 3.7 mmol/L (3.5-5.1); Sodium 137 mmol/L (136-145); Total Protein 7.1 g/dL (6.6-8.7)
--- NOTE | 2025-03-19 14:21 | P.PNCC_ITS ---
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 She came to the ER where a stroke alert was called. I called back to the emergency department and Dr. Owens had just been informed of the stroke alert and immediately went to see the patient and we reviewed her CT of the head, which was showed an old stroke in the left insula but nothing acute. I came directly to the emergency department as Dr. Owens and I were talking about giving TNK because it sounded like the patient was ataxic but by the time I arrived, she was able to walk up and down the hillman and perform tandem gait without stumbling. She has minimal clumsiness of the left hand and that improved during exam and improved by performing the task on both sides simultaneously. She has a little bit of residual tingling in the left arm and no other symptoms. Her NIH stroke scale score was 1-2 and therefore thrombolytic was not indicated. She says that she had a severe stroke 10 years ago and was air flighted to [place]. She has a pacemaker and follows with cardiology and neurology in [place]. She was evaluated by [facility] February 2018 where it was reported she had bifrontal strokes and was hospitalized at [facility] after being treated with tPA in December 2017. She was not a candidate for intervention and she was transferred to [facility] at that time. Stroke Alert Activated by: Triage Stroke Alert Activation Time: 13:32 Stroke MD @ Bedside Time: 13:34 NIH Stroke Scale Time: 13:55 NIH stroke score NIHSS: Level Of Consciousness - 1a: 0 Level Of Consciousness Questions - 1b: Both Correct Level Of Consciousness Commands - 1c: Both Correct Best Gaze - 2: Normal Visual Chester - 3: No Visual Loss Facial Palsy - 4: Minor Paralysis (Fluctuating weakness of the right face. Symmetric on grimace.) Motor Arm Right - 5: No Drift Motor Arm Left - 5: No Drift (Mild slowing of finger movements improves with simultaneous bilateral movement) Motor Leg Right - 6: No Drift Motor Leg Left - 6: No Drift Limb Ataxia - 7: Absent Sensory - 8: Mild To Moderate Loss (She describes tingling on the left arm) Best Language - 9: No Aphasia Dysarthia - 10: Normal Extinction And Inattention - 11: 0 Score: Total Score: 2 Stroke Alert Data/Treatment CT Results Time: 13:54 CT Impression: Old left insular infarct Stroke Risk Factors: depression tPA Contraindication: tPA Contraindication: Treatment not indcated tPA Admin Prior to Arrival: No Patient & Family Educated on: Scottament Plan Other Information: She is scheduled to see her web production artist tomorrow. She is advised to be watched carefully by her partner this afternoon and return if she gets worse Critical Care Time Critical Care Time: 30 - 74 mins A&P Assessment and plan 1. TIA (transient ischemic attack): Rapidly improving and resolving symptoms with normal gait, full ability to walk a straight line and slight clumsiness of the left hand that improves when she is asked to move both hands simultaneously. A stroke scale score 1-2 does not require thrombolytic therapy. She is not dysarthric or aphasic. Plan to add Plavix for 3 weeks and continue aspirin. Follow-up with her neurologist and web production artist as scheduled. Return if worse. PDMP PDMP Reviewed: Not Reviewed Coding Level of Care Code Acute Code for g Fwd Diagnoses TIA (transient ischemic attack) G45.9
[2025-03-19 14:35] VITALS: BP 133/86; PULSE 106; RESP 20; O2SAT 100
--- OUTSIDE RECORDS SUMMARY | 2025-03-19 14:45 | XMS_ITS | Encounter Summary ---
Author Organization [facility] Address [address] [place] [address] Care Team Providers Care Wood Shop Teacher Name Role Phone Tristan Leonard MD, Nolan Burks Primary Care Provide r Encounter Details Date Type Department Care Team (Late st Contact Info) Description 03/04/[address] [facility] [address] [place] [address] Renetta Hong MD [address] [id number] BIPOLAR DISORDERS NEC (CMS/[facility]) (Primary Dx) Social History Tobacco Use Types Packs/Day Years Used Date Smoking Tobacco: Never Assessed Comments Unknown Sex and Gender Information Value Date Recorded Sex Assigned at Not on file Legal Sex Female 3:46 AM [employer] Gender Identity Not on file Sexual Orientation Not on file documented as of this encounter Plan of Treatment Not on file documented as of this encounter Visit Diagnoses Diagnosis Other bipolar disorders- Primary documented in this encounter Care Teams Wood Shop Teacher Relationship Specialty Start Date End Date Nolan Hudson Jr., MD PCP - General Family Practice 12/17/15 10/17/17 documented as of this encounter
--- OUTSIDE RECORDS SUMMARY | 2025-03-19 14:45 | XMS_ITS | Clinical Summary ---
Author Organization [facility] Address [address] [facility] Attn: Epic Prelude ADT [place] [address] Care Team Providers Care Retirement Consultant Name Role Phone Denise Colbert MD Primary Care Provider [phone] Allergies Active Allergy Reactions Criticality Noted Date [...] (06/15/2021): Added automatically from request for surgery [id number] SSS (sick sinus syndrome) 06/15/2021 Overview (06/15/2021): Added automatically from request for surgery [id number] Near syncope 06/15/2021 Overview (06/15/2021): Added automatically from request for surgery [id number] Complicated migraine Resolved Problems Problem Noted Date Diagnosed Date Resolved Date Right sided weakness 12/06/2015 016 Intractable migraine with status migrainosus 12/08/2015 Abnormal gait 01/06/2016 Encounters Date Type Department Care Team Description 03/11/2025 Orders Only [facility] [address] [facility] [address] [place] [address] Rosalia Jackson, CARLINE-GENARO Benign hypertension (Primary Dx) 02/06/2025 External Device Data STL ABSTRACTION Provider, Abstract 02/05/2025 External Device Data STL ABSTRACTION Provider, Abstract 01/01/2025 External Device Data STL ABSTRACTION Provider, Abstract [...] PM CDT Legal Sex Female 12:03 PM FABRIC COATING SUPERVISOR Gender Identity Female 02/13/2024 7:40 PM CDT Sexual Orientation Not on file Last Filed Vital Signs Vital Sign Reading Time Taken Comments Blood Pressure 124/74 11/10/2023 1:34 PM CDT Pulse 76 11/10/2023 1:34 PM CDT Temperature 36 C (96.8 F) 06/19/2021 8:25 AM FABRIC COATING SUPERVISOR Respiratory Rate 15 06/19/2021 1:30 PM FABRIC COATING SUPERVISOR Oxygen Saturation 96% 06/19/2021 1:30 PM FABRIC COATING SUPERVISOR Inhaled Oxygen Concentration - - Weight 77.9 kg (171 lb 12.8 oz) 11/10/2023 1:34 PM CDT Height 163.8 cm (5' 4.5 ) 11/10/2023 1:34 PM CDT Body Mass Index 29.03 11/10/2023 1:34 PM CDT Plan of Treatment Upcoming Encounters Date Type Department Care Team (Late st Contact Info) Description 03/20/2025 12:40 PM FABRIC COATING SUPERVISOR Office Visit [place] [address] [place] [address] Tracie Gomez MD [address] [place] [address] Rosalia Jackson, CARLINE-ANODIC TREATER [address] [place] [address] 06/11/2025 8:00 AM FABRIC COATING SUPERVISOR Procedure visit [facility] [address] [facility] [address] [place] [address] Tracie Gomez MD [address] [facility] [address] [place] [address] Health Maintenance Due Date Last [...] Flex Sig/CT Colonography Q 5 years 06/17/2023 [place]) Preventative Visit/Annual Wellness Visit 04/18/2024 INFLUENZA VACCINE (#1) 2024 01/17/2020 HPV VACCINES Aged Out No longer eligi ble based on patient's age to complete this topic Medical Devices Implanted Type Area Psychology Tech Device Identifier Shelf Expiration Date Model / Serial / Lot Lead Pacing Capsure Fix Novus 45cm [id number] - Csc - [id number] Implanted:Qty: 1 on 06/19/2021 by Tracie Gomez MD at [facility] Lead Left: Chest [employer]- CRM - BULK BUY 05/04/2023 5076-45 / [id number] / F Lead Pacing Capsure Fix Novus 52cm [id number] - Csc - [id number] Implanted:Qty: 1 on 06/19/2021 by Tracie Gomez MD at [facility] Lead Left: Chest [employer]- CRM - BULK BUY 03/30/2023 5076-52 / [id number] / F Pacemaker Tara Xt Surescan Mri [id number] - [id number] Implanted:Qty: 1 on 06/19/2021 by Tracie Gomez MD at [facility] Pacemaker Left: Chest [employer]- CRM - BULK BUY 11/12/2022 [id number] / [id number] / F Medtronic Description:Loop recorder Insurance [place] Advance Directives For more information, please contact: [phone] * Full Code (Latest Code Status on File) Date Activated Date Inactivated Comments 06/19/2021 11:30 AM 06/19/2021 6:53 PM Care Teams Retirement Consultant Relationship Specialty Start Date End Date Denise Colbert MD [address] [place] [address] PCP - General Family Practice 06/18/21
--- OUTSIDE RECORDS SUMMARY | 2025-03-19 14:45 | XMS_ITS | Clinical Summary ---
Author Organization [facility] Address [address] [place] [address] Care Team Providers Care Senior Environmental Consultant Name Role Phone Unavailable Primary Care Provider [...] on file Legal Sex Female 3:46 AM YEAST DISTILLER Gender Identity Not on file Sexual Orientation [...] Q 5 years 06/17/2023 INFLUENZA VACCINE (#1) 2024 HPV VACCINES Aged Out No longer eligi ble based on patient's age to complete this topic Insurance [place] MEDICARE PART A AND B MEDICARE PART A [place] B [place] Advance Directives For more information, please contact: [phone] * Full Code (Latest Code Status on File) Date Activated Date Inactivated Comments 12/06/2015 1:28 AM 12/08/2015 3:03 PM
--- OUTSIDE RECORDS SUMMARY | 2025-03-19 14:45 | XMS_ITS | Encounter Summary ---
Author Organization [facility] Address [address] [facility] [place] [address] Care Team Providers Care Friction Welding Machine Operator Name Role Phone Tristan Leonard MD, Nolan Burks Primary Care Provide r Encounter Details Date Type Department Care Team (Latest Contact Info) Description 01/23/2003 Inpatient Historical [facility] [address] [place] [address] Tom [place] [address] [place] [address] MANIC-DEPRESSIVE NEC (CMS/HCC) (Primary Dx) Social History Tobacco Use Types Packs/Day Years Used Date Smoking Tobacco: Never Assessed Comments Unknown Sex and Gender Information Value Date Recorded Sex Assigned at Not on file Legal Sex Female 3:46 AM CARPENTER ASSISTANT Gender Identity Not on file Sexual Orientation Not on file documented as of this encounter Plan of Treatment Not on file documented as of this encounter Visit Diagnoses Diagnosis Other bipolar disorders- Primary documented in this encounter Care Teams Friction Welding Machine Operator Relationship Specialty Start Date End Date Nolan Hudson Jr., MD PCP - General Family Practice 12/17/15 10/17/17 documented as of this encounter
--- OUTSIDE RECORDS SUMMARY | 2025-03-19 14:45 | XMS_ITS | Encounter Summary ---
Author Organization [facility] Address [address] [facility] [address] Care Team Providers Care Wireless Cellular Technician Name Role Phone Tristan Leonard MD, Nolan Burks Primary Care Provide r Encounter Details Date Type Department Care Team (Latest Contact Info) Description 05/10/2003 Inpatient Historical [facility] [address] [place] [address] Ricahrd Allred III, MD NO ADDRESS ON FILE Tom Martí[place] [address] [place] [address] BIPOLAR AFFECTIVE NOS (CMS/HCC) (Primary Dx) Social History Tobacco Use Types Packs/Day Years Used Date Smoking Tobacco: Never Assessed Comments Unknown Sex and Gender Information Value Date Recorded Sex Assigned at Not on file Legal Sex Female 3:46 AM PATTERN STAMPER Gender Identity Not on file Sexual Orientation Not on file documented as of this encounter Plan of Treatment Not on file documented as of this encounter Visit Diagnoses Diagnosis Bipolar I disorder, most recent episode (or current) unspecified (CMS/HCC)- Primary Bipolar I disorder, most recent episode (or current) unspecified documented in this encounter Care Teams Wireless Cellular Technician Relationship Specialty Start Date End Date Nolan Hudson Jr., MD PCP - General Family Practice 12/17/15 10/17/17 documented as of this encounter
--- OUTSIDE RECORDS SUMMARY | 2025-03-19 14:45 | XMS_ITS | Encounter Summary ---
Author Organization [facility] Address [address] [place] [address] Care Team Providers Care Peer Tutor Name Role Phone Tristan Leonard MD, Nolan Burks Primary Care Provide r Encounter Details Date Type Department Care Team (Latest Contact Info) Description 11/17/2004 Outpatient Historical [facility] [address] [place] [address] Deven Gomez MD [address] [address] SPINAL STENOSIS-LUMBAR (Primary Dx) Social History Tobacco Use Types Packs/Day Years Used Date Smoking Tobacco: Never Assessed Comments Unknown Sex and Gender Information Value Date Recorded Sex Assigned at Not on file Legal Sex Female 3:46 AM APPLICATIONS COORDINATOR Gender Identity Not on file Sexual Orientation Not on file documented as of this encounter Plan of Treatment Not on file documented as of this encounter Visit Diagnoses Diagnosis Spinal stenosis, lumbar region, without neurogenic claudication- Primary documented in this encounter Care Teams Peer Tutor Relationship Specialty Start Date End Date Nolan Hudson Jr., MD PCP - General Family Practice 12/17/15 10/17/17 documented as of this encounter
--- OUTSIDE RECORDS SUMMARY | 2025-03-19 14:45 | XMS_ITS | Encounter Summary ---
Author Organization [facility] Address [address] [place] [address] Care Team Providers Care People Greeter Name Role Phone Tristan Leonard MD, Nolan Burks Primary Care Provide r Encounter Details Date Type Department Care Team (Latest Contact Info) Description 11/17/2004 Outpatient Historical [facility] Pain Management Procedures [address] [place] [address] Andrea Evans MD NO ADDRESS ON FILE LUMBAGO (Primary Dx) Social History Tobacco Use Types Packs/Day Years Used Date Smoking Tobacco: Never Assessed Comments Unknown Sex and Gender Information Value Date Recorded Sex Assigned at Not on file Legal Sex Female 3:46 AM MOLD POLISHER Gender Identity Not on file Sexual Orientation Not on file documented as of this encounter Plan of Treatment Not on file documented as of this encounter Visit Diagnoses Diagnosis Lumbago- Primary documented in this encounter Care Teams People Greeter Relationship Specialty Start Date End Date Nolan Hudson Jr., MD PCP - General Family Practice 12/17/15 10/17/17 documented as of this encounter
--- OUTSIDE RECORDS SUMMARY | 2025-03-19 14:45 | XMS_ITS | Encounter Summary ---
Author Organization [facility] Address [address] [place] [address] Care Team Providers Care Manager Front Office Name Role Phone Tristan Leonard MD, Nolan Burks Primary Care Provide r Encounter Details Date Type Department Care Team (Latest Contact Info) Description 02/20/[address] [facility] Oral and Maxillo Surgery- [address] [place] [address] Nicho Espinosa, DDS [address] [place] [phone] Tooth eruption disturb (Primary Dx) Social History Tobacco Use Types Packs/Day Years Used Date Smoking Tobacco: Never Assessed Comments Unknown Sex and Gender Information Value Date Recorded Sex Assigned at Not on file Legal Sex Female 3:46 AM LLAMA FARMER Gender Identity Not on file Sexual Orientation Not on file documented as of this encounter Plan of Treatment Not on file documented as of this encounter Visit Diagnoses Diagnosis Tooth eruption disturb- Primary Disturbances in tooth eruption documented in this encounter Care Teams Manager Front Office Relationship Specialty Start Date End Date Nolan Hudson Jr., MD PCP - General Family Practice 12/17/15 10/17/17 documented as of this encounter
--- OUTSIDE RECORDS SUMMARY | 2025-03-19 14:45 | XMS_ITS | Encounter Summary ---
Author Organization [facility] Address [address] [place] [address] Care Team Providers Care Steam Engineer Name Role Phone Tristan Leonard MD, Nolan Burks Primary Care Provide r Encounter Details Date Type Department Care Team (Latest Contact Info) Description 11/17/2004 [facility]patient [facility] [address] [place] [phone] Andrea Evans MD NO ADDRESS ON FILE SPINAL STENOSIS-LUMBAR (Primary Dx); LUMB/LUMBOSAC DISC DEGEN; Lumbosacral spondylosis; LUMBAGO Social History Tobacco Use Types Packs/Day Years Used Date Smoking Tobacco: Never Assessed Comments Unknown Sex and Gender Information Value Date Recorded Sex Assigned at Not on file Legal Sex Female 3:46 AM COMPRESSOR MECHANIC Gender Identity Not on file Sexual Orientation Not on file documented as of this encounter Plan of Treatment Not on file documented as of this encounter Visit Diagnoses Diagnosis Spinal stenosis, lumbar region, without neurogenic claudication- Primary Degeneration of lumbar or lumbosacral intervertebral disc Lumbosacral spondylosis Lumbosacral spondylosis without myelopathy Lumbago documented in this encounter Care Teams Steam Engineer Relationship Specialty Start Date End Date Nolan Hudson Jr., MD PCP - General Family Practice 12/17/15 10/17/17 documented as of this encounter
--- OUTSIDE RECORDS SUMMARY | 2025-03-19 14:45 | XMS_ITS | Encounter Summary ---
Author Organization [facility] Address [address] [place] [address] Care Team Providers Care Copy And Print Associate Name Role Phone Tristan Leonard MD, Nolan Burks Primary Care Provide r Encounter Details Date Type Department Care Team (Late st Contact Info) Description 12/26/2002 Inpatient Historical [facility] [address] [place] [phone] Tom [place] [address] [place] [address] Renetta Hong MD [address] [id number] MANIC-DEPRESSIVE NEC (CMS/HCC) (Primary Dx) Social History Tobacco Use Types Packs/Day Years Used Date Smoking Tobacco: Never Assessed Comments Unknown Sex and Gender Information Value Date Recorded Sex Assigned at Not on file Legal Sex Female 3:46 AM ENGINEER RF DEPLOYMENT Gender Identity Not on file Sexual Orientation Not on file documented as of this encounter Plan of Treatment Not on file documented as of this encounter Visit Diagnoses Diagnosis Other bipolar disorders- Primary documented in this encounter Care Teams Copy And Print Associate Relationship Specialty Start Date End Date Nolan Hudson Jr., MD PCP - General Family Practice 12/17/15 10/17/17 documented as of this encounter
[2025-03-19 15:03] LABS: Glucose Urine UA Negative (Normal); Nitrate Urine Negative (Negative); Specific Gravity, Urine 1.003 (1.005-1.030)
[2025-03-19 15:05] LABS: Add Urine Microscopic? YES
[2025-03-19 15:10] LABS: PCP Screen Urine Negative (Negative)
[2025-03-19 15:46] LABS: UA Slide Review UA Slide Review Perf
[2025-03-19 16:05] VITALS: BP 146/97; PULSE 87; O2SAT 97
== END 2025-03-19 16:05 | disposition home or self-care (01) ==
PROVIDERS: Emergency Provider Family Medicine; PCP Nurse Practitioner Family
DX: G45.9 Transient cerebral ischemic attack, unspecified (principal); Z79.82 Long term (current) use of aspirin; F17.210 Nicotine dependence, cigarettes, uncomplicated; Z86.73 Personal history of transient ischemic attack (TIA), and cerebral infarction without residual deficits; Z95.0 Presence of cardiac pacemaker; E78.5 Hyperlipidemia, unspecified
CPT/HCPCS: 36415; 36416; 70450; 80053; 80306; 81001; 82962; 85025; 85610; 85730; 93005; 99285